=== PATIENT | female | born 1965 | race Caucasian/White ===

== ENCOUNTER 2023-09-06 08:47 | Outpatient (AMB) | payer BC, SELFPAY ==
--- NOTE | 2023-09-06 09:19 | A.OFFPC_ITS ---
Vital Signs 09/06/23 09:31 Height 5 ft 6 in Weight 187 lb 8 oz BMI 30.3 BP 128/80 Blood Pressure Location Lt brachial Position Sitting Respiration 12 Pulse 83 Pulse Source Pulse Oximeter Temp 98.2 F Temp Source Oral Pulse Oximetry (%) 98 Oxygen Delivery Method Room Air Intake Visit Reasons: est care Intake Note: New patient visit. Needs thyroid lab recheck Clinic Assistant Required: No Allergies erythromycin base Allergy (Severe, Verified 09/05/23 13:55) Abdominal Pain codeine Allergy (Unknown, Verified 09/05/23 13:55) Back Pain metronidazole [From Flagyl] Allergy (Unknown, Verified 09/05/23 13:55) Unknown povidone-iodine [From Betadine] Allergy (Unknown, Verified 09/05/23 13:55) Rash sulfamethoxazole [From Bactrim] Allergy (Unknown, Verified 09/05/23 13:55) Rash trimethoprim [From Bactrim] Allergy (Unknown, Verified 09/05/23 13:55) Rash cephalexin [From Keflex] Allergy (Verified 09/05/23 13:55) throat closing shellfish Allergy (Unknown, Uncoded 09/05/23 13:55) skin reaction Medication List - Last Reconciled 09/06/23 by Elina Hong MD albuterol sulfate 90 mcg/actuation 2 puffs inhalation Q6H PRN amitriptyline 25 mg PO BEDTIME fluticasone propionate 110 mcg/actuation inhalation gabapentin 100 mg PO TID levothyroxine 50 mcg PO DAILY montelukast 10 mg PO DAILY zolpidem 10 mg PO BEDTIME PRN Tobacco use date assessed: 09/06/23 Dental Screening Dental Screen Date: 09/06/23 Did you have a dental visit in the last 12 months?: No Did you have a dental problem in the last 6 months where you did not have access to dental care?: No Was dental information given to patient?: Patient has dentist HPI HPI Comments History of Present Illness Details The patient is a 58 year old female with a past medical history of asthma, hyplipidemia, diveriticulitis, migraine, insomnia, COVID x 2 presenting for follow up Asthma: Stable. Slow recovery from COVID May 2020. Recent COVID 06/2023. Breathing at baseline on flovent, albuterol prn CV: Hyperlipidemia. Tried multiple statins-lipitor, simvastatin, pravastatin. All led to increased myalgia. Hypothyroid: Stable on levothyroxine 50mcg daily. Thyroid u/s reassuring 2023. History of diverticulitis s/p colonic resection 2018 without recent issue Fibromyalgia: stopped statin with some relief last year. Feels increased b/l hip pain. Would like to increase gabapentin, elavil Insomnia: Well controlled on ambien Mammo 08/2022 PFSH Family History (Updated 09/06/23 @ 10:14 by Maggie Suarez CMA) Mother Lung cancer Father Stomach cancer Paternal Aunt Breast cancer Brother Autoimmune disorder Social History (Updated 09/06/23 @ 09:34 by Maggie Suarez CMA) Housing: House e-Cigarette/Vaping Use: Never Used Second Hand Smoke Exposure: Yes (past) service: No Current occupational status: employed Current occupational exposures/hazards: No (past) Cognitive needs: No Hearing needs: No Vision needs: No Questionnaire PHQ-9 Over the last 2 weeks, how often have you been bothered by any of the following problems? 1. Little interest or pleasure in doing things: not at all 2. Feeling down, depressed, or hopeless: not at all 3. Trouble falling or staying asleep, or sleeping too much: not at all 4. Feeling tired or having little energy: not at all 5. Poor appetite or overeating: not at all 6. Feeling bad about yourself - or that you are a failure or have let yourself or your family down: not at all 7. Trouble concentrating on things, such as reading the newspaper or watching television: not at all 8. Moving or speaking so slowly that other people could have noticed. Or the opposite - being so fidgety or restless that you have been moving around a lot more than usual: not at all 9. Thoughts that you would be better off or of hurting yourself in some way: not at all Total score: 0 Depression Screening Interpretation: Negative (neg) Depression Screening Done: Yes 44267 - PHQ-9 Billing: Yes Source: Developed by Drs. Javi Whatley, Yaneth Salomon, Speedy Ward and colleagues, with an educational selvin from [employer]. Thrive Questionnaire Date Thrive assessed: 04/25/24 I am a: Patient What is your living situation today?: I have a steady place to live Within the past 12 months, did the food you bought not last and you didn't have the money to get more?: Never true Within the past 12 months, did you worry whether your food would run out before you got money to buy more?: Never true Do you have trouble paying for medicines?: No Do you have trouble getting transportation to medical appointments?: No Do you have trouble paying your heating and electricity bill?: No Do you have trouble taking care of your child, family member or friend?: No Do you have trouble with day-to-day activities such as bathing, preparing meals, shopping, managing finances, etc.?: No Are you currently unemployed and looking for a job?: No Are you interested in more education?: No Please select the resources that you would like help with: None Currently or been in a relationship where the following occur: no concerns reported THRIVE Score: 0 AUDIT C Alcohol Use Questionnaire (AUDIT-C) 1. How often do you have a drink containing alcohol?: Monthly or less 2. How many drinks containing alcohol do you have on a typical day when you are drinking?: 1 or 2 3. How often do you have six or more drinks on one occasion?: Never Total Score: 1 SUMMER-7 AMB Questionnaire SUMMER-7 Date SUMMER - 7 assessed: 09/06/23 Feeling nervous, anxious, or on edge: 0 = Not at all Not being able to stop or control worryin = Not at all Worrying too much about different things: 0 = Not at all Trouble relaxin = Not at all Being so restless that it is hard to sit still: 0 = Not at all Becoming easily annoyed or irritable: 0 = Not at all Feeling afraid as if something awful might happen: 0 = Not at all Total SUMMER-7 score (0-4 normal; 5-9 mild; 10-14 moderate; 15-21 severe): 0 Source: Developed by Drs. Javi Whatley, Yaneth Salomon, Speedy Ward and colleagues, with an educational selvin from [employer]. SUMMER-7 Assessment Billing SUMMER-7 Assessment Tool: SUMMER-7 Assessment 88708 ACT Questionnaire In the past 4 weeks, how much of the time did your asthma keep you from getting as much done at work, school or at home?: Some of the time During the past 4 weeks, how often have you had shortness of breath?: 1-2 times a week (Once in the past 4 weeks, usually in spring time) During the past 4 weeks, how often did your asthma symptoms wake you up at night or earlier than usual in the morning?: Not at all During the past 4 weeks, how often have you had to use your rescue inhaler or nebulizer medication?: Not at all How would you rate your asthma control during the past 4 weeks?: Well controlled ACT Interpretation: Positive Score: 21 Review of Systems Const Details: ROS CONSTITUTIONAL: Denies weight loss, fever and chills. HEENT: Denies changes in vision and hearing. RESPIRATORY: Denies SOB and cough. CV: Denies palpitations and CP GI: Denies abdominal pain, nausea, vomiting and diarrhea. : Denies dysuria and urinary frequency. MSK: see HPI SKIN: Denies rash and pruritus. NEUROLOGICAL: Denies headache PSYCHIATRIC: Denies recent changes in mood. Physical exam (Primary Care) Vital Signs: Last Vital Signs Temp 98.2 F 09/06/23 09:31 Pulse 83 09/06/23 09:31 Resp 12 09/06/23 09:31 BP 128/80 09/06/23 09:31 Pulse Ox 98 09/06/23 09:31 Oxygen Delivery Method Room Air 09/06/23 09:31 PHYSICAL EXAM: GENERAL: Alert and oriented x 3. NAD EYES: EOMI. Anicteric. HENT: Moist mucous membranes. No scleral icterus. No cervical lymphadenopathy. LUNGS: Clear to auscultation bilaterally. CARDIOVASCULAR: Regular rate and rhythm. No murmur. No JVD. ABDOMEN: Soft, non-tender +bs EXTREMITIES: No edema. Non-tender. SKIN: No rashes or lesions. Warm. NEUROLOGIC: No focal neurological deficits. CN II-XII grossly intact PSYCHIATRIC: Cooperative. Appropriate mood and affect BMI result Body Mass Index 30.3 Tobacco/Smoking Status: Tobacco use Status Tobacco use date assessed 09/06/23 09/06/23 09:28 e-Cigarette/Vaping Use Never Used 09/06/23 09:28 PHQ-9: PHQ-9 Score PHQ-9: Total score 0 04/25/24 10:15 Depression Screening Interpretation: Negative (neg) Thrive Assessment: Date of Thrive Assessment Date Thrive assessed 09/06/23 09/06/23 10:15 Currently or been in a relationship where the following occur: no concerns reported Const Other: PHYSICAL EXAM: GENERAL: Alert and oriented x 3. NAD EYES: EOMI. Anicteric. HENT: Moist mucous membranes. No scleral icterus. No cervical lymphadenopathy. LUNGS: Clear to auscultation bilaterally. CARDIOVASCULAR: Regular rate and rhythm. No murmur. No JVD. ABDOMEN: Soft, non-tender +bs EXTREMITIES: No edema. Non-tender. SKIN: No rashes or lesions. Warm. NEUROLOGIC: No focal neurological deficits. CN II-XII grossly intact PSYCHIATRIC: Cooperative. Appropriate mood and affect Assessment and Plan Assessment & Plan (1) Hypertension: Comment: controlled off meds Code(s): I10 - Essential (primary) hypertension Qualifiers: Hypertension type: primary hypertension Qualified Code(s): I10 - Essential (primary) hypertension (2) Hyperlipidemia: Comment: thaddeus sent. Code(s): E78.5 - Hyperlipidemia, unspecified Qualifiers: Hyperlipidemia type: mixed hyperlipidemia Qualified Code(s): E78.2 - Mixed hyperlipidemia (3) Insomnia: Comment: continue zolpidem Code(s): G47.00 - Insomnia, unspecified Qualifiers: Insomnia type: primary Qualified Code(s): F51.01 - Primary insomnia (4) Migraine: Code(s): G43.909 - Migraine, unspecified, not intractable, without status migrainosus Qualifiers: Migraine type: unspecified Status migrainosus presence: without status migrainosus Intractability: not intractable Qualified Code(s): G43.909 - Migraine, unspecified, not intractable, without status migrainosus (5) Asthma: Comment: stable. continue flovent, albuterol Code(s): J45.909 - Unspecified asthma, uncomplicated Qualifiers: Asthma severity: moderate Asthma persistence: persistent Asthma complication type: uncomplicated Qualified Code(s): J45.40 - Moderate persistent asthma, uncomplicated (6) Diverticulitis: Code(s): K57.92 - Diverticulitis of intestine, part unspecified, without perforation or abscess without bleeding (7) HSIL on Pap smear of cervix: Code(s): R87.613 - High grade squamous intraepithelial lesion on cytologic smear of cervix (HGSIL) (8) Statin-induced myositis: Code(s): M60.9 - Myositis, unspecified; T46.6X5A - Adverse effect of antihyperlipidemic and antiarteriosclerotic drugs, initial encounter Orders: Orders TSH reflex Free T4 Today E03.9 - Hypothyroidism, unspecified, E78.5 - Hyperlipidemia, unspecified, G47.00 - Insomnia, unspecified, I10 - Essential (primary) hypertension Lipid Panel Today E78.5 - Hyperlipidemia, unspecified, M60.9 - Myositis, unspecified, T46.6X5A - Adverse effect of antihyperlipidemic and antiarteriosclerotic drugs, initial encounter Medications: New zolpidem 10 mg PO BEDTIME 30 days PRN 30 tabs 0RF insomnia amitriptyline 50 mg PO BEDTIME 90 tabs 3RF inclisiran (Leqvio) 284 mg (1.5 mL) subcut [id number] 3 months 1.5 mL 0RF E78.5 - Hyperlipidemia, unspecified, M60.9 - Myositis, unspecified, T46.6X5A - Adverse effect of antihyperlipidemic and antiarteriosclerotic drugs, initial encounter gabapentin 300 mg PO TID 90 days 270 caps 3RF montelukast 10 mg PO DAILY 90 tabs 3RF Coding Level of Care Code Est Pt Level 4 (90832) Complex EM visit Add On G2211 Diagnoses Primary hypertension I10 Hypertension type: primary hypertension Mixed hyperlipidemia E78.2 Hyperlipidemia type: mixed hyperlipidemia Primary insomnia F51.01 Insomnia type: primary Migraine without status migrainosus, not intractable, unspecified migraine type G43.909 Migraine type: unspecified Status migrainosus presence: without status migrainosus Intractability: not intractable Moderate persistent asthma without complication J45.40 Asthma severity: moderate Asthma persistence: persistent Asthma complication type: uncomplicated Diverticulitis K57.92 HSIL on Pap smear of cervix R87.613 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; T46.6X5A Additional Codes SUMMER-7 Assessment Billing - SUMMER-7 Assessment Tool: SUMMER-7 Assessment 11074 ([id number]) Time Spent (min) 35
[2023-09-06 09:31] VITALS: BP 128/80; PULSE 83; RESP 12; TEMP 36.8; O2SAT 98; BMI 30.3
== END 2023-09-06 10:15 | disposition home or self-care (01) ==
PROVIDERS: PCP Internal Medicine; Visit Provider Internal Medicine
DX: I10 Essential (primary) hypertension (principal); E78.2 Mixed hyperlipidemia; F51.01 Primary insomnia; G43.909 Migraine, unspecified, not intractable, without status migrainosus; J45.40 Moderate persistent asthma, uncomplicated; K57.92 Diverticulitis of intestine, part unspecified, without perforation or abscess without bleeding; R87.613 High grade squamous intraepithelial lesion on cytologic smear of cervix (HGSIL); M60.9 Myositis, unspecified; T46.6X5A Adverse effect of antihyperlipidemic and antiarteriosclerotic drugs, initial encounter
CPT/HCPCS: 99214; G2211

== ENCOUNTER 2023-09-06 10:10 | Outpatient (REF) | payer BC, SELFPAY ==
[2023-09-06 14:16] LABS: Cholesterol 247 mg/dL (<200); HDL Cholesterol 58 mg/dL (>40); LDL Cholesterol Calculated 171 mg/dL (<100); TSH reflex Free T4 2.14 uIU/mL (0.32-4.0); Triglycerides 94 mg/dL (<150)
== END 2023-09-06 10:11 | disposition home or self-care (01) ==
LOC: HO.WFDLDS 10:10
PROVIDERS: Visit Provider Internal Medicine
DX: I10 Essential (primary) hypertension (principal); E78.5 Hyperlipidemia, unspecified; G47.00 Insomnia, unspecified; E03.9 Hypothyroidism, unspecified; M60.9 Myositis, unspecified; T46.6X5A Adverse effect of antihyperlipidemic and antiarteriosclerotic drugs, initial encounter
CPT/HCPCS: 36415; 80061; 84443

== ENCOUNTER 2023-10-04 08:13 | Outpatient (AMB) | payer BC, SELFPAY ==
--- NOTE | 2023-10-04 08:19 | MHC.PC.OV ---
Vital Signs 10/04/23 08:29 Height 5 ft 5.35 in Weight 187 lb 6 oz BMI 30.8 BP 118/84 Blood Pressure Location Lt brachial Position Sitting Pulse 87 Pulse Source Pulse Oximeter Pulse Oximetry (%) 95 Oxygen Delivery Method Room Air Intake Visit Reasons: CPE Intake Note: Physical. Pt had a mammogram and something was spotted on right breast. Recent tick bite 3 weeks ago, head was not fully removed. 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 Accompanied by: Self / Same As Patient Allergies erythromycin base Allergy (Severe, Verified 10/04/23 08:23) Abdominal Pain amoxicillin Allergy (Intermediate, Verified 10/04/23 08:23) Rash codeine Allergy (Unknown, Verified 10/04/23 08:23) Back Pain metronidazole [From Flagyl] Allergy (Unknown, Verified 10/04/23 08:23) Unknown povidone-iodine [From Betadine] Allergy (Unknown, Verified 10/04/23 08:23) Rash sulfamethoxazole [From Bactrim] Allergy (Unknown, Verified 10/04/23 08:23) Rash trimethoprim [From Bactrim] Allergy (Unknown, Verified 09/05/23 13:55) Rash cephalexin [From Keflex] Allergy (Verified 10/04/23 08:23) throat closing shellfish Allergy (Unknown, Uncoded 10/04/23 08:23) skin reaction Tobacco use date assessed: 09/06/23 Dental Screening Dental Screen Date: 09/06/23 HPI HPI Comments History of Present Illness Details The patient is a 58 year old female with a past medical history of asthma, hyplipidemia, diveriticulitis, migraine, insomnia, COVID x 2 presenting for follow up Recent tick bite ~3 weeks ago. Got the tick out but thinks some head left behind. It continues to be painful to her. Seen at urgent care after bite. Prescribed 10 days of doxycycline which she completed. Asthma: Stable. Slow recovery from COVID May 2020. Recent COVID 06/2023. Breathing at baseline on flovent, albuterol prn CV: Hyperlipidemia. Tried multiple statins-lipitor, simvastatin, pravastatin. All led to increased myalgia. Insurance has not covered PCSK9 inhibitors Hypothyroid: Stable on levothyroxine 50mcg daily. Thyroid u/s reassuring 2023. History of diverticulitis s/p colonic resection 2018 without recent issue Fibromyalgia: stopped statin with some relief last year. Continues gabapentin, elavil Insomnia: Well controlled on ambien Mammo 09/2023 PFSH Family History (Updated 09/06/23 @ 10:14 by Maggie Suarez CMA) Mother Lung cancer Father Stomach cancer Paternal Aunt Breast cancer Brother Autoimmune disorder Social History (Updated 09/06/23 @ 09:34 by Mgagie Suarez CMA) Housing: House Patient Tobacco Use Status: Never used Tobacco e-Cigarette/Vaping Use: Never Used Second Hand Smoke Exposure: Yes (past) service: No Current occupational status: employed Current occupational exposures/hazards: No (past) Cognitive needs: No Hearing needs: No Vision needs: No Questionnaire Thrive Questionnaire Date Thrive assessed: 09/06/23 SUMMER-7 AMB Questionnaire SUMMER-7 Date SUMMER - 7 assessed: 09/06/23 Source: Developed by Drs. Jaiv Whatley, Yaneth Salomon, Speedy Ward and colleagues, with an educational selvin from [employer]. Review of Systems Const Details: ROS CONSTITUTIONAL: Denies weight loss, fever and chills. HEENT: Denies changes in vision and hearing. RESPIRATORY: Denies SOB and cough. CV: Denies palpitations and CP GI: Denies abdominal pain, nausea, vomiting and diarrhea. : Denies dysuria and urinary frequency. MSK: Denies new myalgia and joint pain. SKIN: Denies rash and pruritus. NEUROLOGICAL: Denies headache PSYCHIATRIC: Denies recent changes in mood. Physical exam (Primary Care) Vital Signs: Last Vital Signs Pulse 87 10/04/23 08:29 BP 118/84 10/04/23 08:29 Pulse Ox 95 10/04/23 08:29 Oxygen Delivery Method Room Air 10/04/23 08:29 PHYSICAL EXAM: GENERAL: Alert and oriented x 3. NAD EYES: EOMI. Anicteric. HENT: Moist mucous membranes. LUNGS: Clear to auscultation bilaterally. CARDIOVASCULAR: Regular rate and rhythm. No murmur. No JVD. ABDOMEN: Soft, non-tender +bs EXTREMITIES: No edema. Non-tender. SKIN: R-mid/lower back small area blotchy redness with pinpoint area of raised red scab NEUROLOGIC: No focal neurological deficits. CN II-XII grossly intact PSYCHIATRIC: Cooperative. Appropriate mood and affect BMI result Body Mass Index 30.8 Tobacco/Smoking Status: Tobacco use Status Tobacco use date assessed 09/06/23 10/04/23 08:30 Patient Tobacco Use Status Never used Tobacco 10/04/23 08:45 e-Cigarette/Vaping Use Never Used 10/04/23 08:30 Thrive Assessment: Date of Thrive Assessment Date Thrive assessed 09/06/23 10/04/23 08:30 Assessment and Plan Assessment & Plan (1) Physical exam: Code(s): Z00.00 - Encounter for general adult medical examination without abnormal findings (2) Hypertension: Comment: controlled off meds Code(s): I10 - Essential (primary) hypertension Qualifiers: Hypertension type: primary hypertension Qualified Code(s): I10 - Essential (primary) hypertension (3) Hyperlipidemia: Comment: levqio was not filled Code(s): E78.5 - Hyperlipidemia, unspecified Qualifiers: Hyperlipidemia type: mixed hyperlipidemia Qualified Code(s): E78.2 - Mixed hyperlipidemia (4) Migraine: Code(s): G43.909 - Migraine, unspecified, not intractable, without status migrainosus Qualifiers: Intractability: not intractable Migraine type: unspecified Status migrainosus presence: without status migrainosus Qualified Code(s): G43.909 - Migraine, unspecified, not intractable, without status migrainosus (5) Hypothyroid: Code(s): E03.9 - Hypothyroidism, unspecified Qualifiers: Hypothyroidism type: due to Gracie's thyroiditis Qualified Code(s): E03.8 - Other specified hypothyroidism; E06.3 - Autoimmune thyroiditis (6) Tick bite: Code(s): W57.XXXA - Bitten or stung by nonvenomous insect and other nonvenomous arthropods, initial encounter Qualifiers: Encounter type: subsequent encounter Site of tick bite: lower back Qualified Code(s): S30.860D - Insect bite (nonvenomous) of lower back and pelvis, subsequent encounter; W57.XXXD - Bitten or stung by nonvenomous insect and other nonvenomous arthropods, subsequent encounter Orders: Orders Complete Blood Count Auto Diff Today E03.9 - Hypothyroidism, unspecified, E78.2 - Mixed hyperlipidemia, G43.909 - Migraine, unspecified, not intractable, without status migrainosus, I10 - Essential (primary) hypertension, J45.40 - Moderate persistent asthma, uncomplicated Comprehensive Met. Panel Today E03.9 - Hypothyroidism, unspecified, E78.2 - Mixed hyperlipidemia, G43.909 - Migraine, unspecified, not intractable, without status migrainosus, I10 - Essential (primary) hypertension, J45.40 - Moderate persistent asthma, uncomplicated Vitamin B12 and Folate Today E03.9 - Hypothyroidism, unspecified, E78.2 - Mixed hyperlipidemia, G43.909 - Migraine, unspecified, not intractable, without status migrainosus, I10 - Essential (primary) hypertension, J45.40 - Moderate persistent asthma, uncomplicated Lyme IgG/IgM w/reflex to WB 3 Weeks W57.XXXA - Bitten or stung by nonvenomous insect and other nonvenomous arthropods, initial encounter Ehrlichia Anaplasma Ab Panel 3 Weeks W57.XXXA - Bitten or stung by nonvenomous insect and other nonvenomous arthropods, initial encounter Babesia IgG/IgM 3 Weeks W57.XXXA - Bitten or stung by nonvenomous insect and other nonvenomous arthropods, initial encounter Vitamin D 1,25 dihydroxy Today E03.9 - Hypothyroidism, unspecified, E78.2 - Mixed hyperlipidemia, G43.909 - Migraine, unspecified, not intractable, without status migrainosus, I10 - Essential (primary) hypertension, J45.40 - Moderate persistent asthma, uncomplicated IRON PROFILE Today E03.9 - Hypothyroidism, unspecified, E78.2 - Mixed hyperlipidemia, G43.909 - Migraine, unspecified, not intractable, without status migrainosus, I10 - Essential (primary) hypertension, J45.40 - Moderate persistent asthma, uncomplicated Medications: Refilled montelukast 10 mg PO DAILY 90 tabs 3RF zolpidem 10 mg PO BEDTIME PRN 30 tabs 0RF insomnia 30 days Coding Level of Care Code Est Pt Prev Care 40-64y(57564) Diagnoses Physical exam Z00.00 Primary hypertension I10 Hypertension type: primary hypertension Mixed hyperlipidemia E78.2 Hyperlipidemia type: mixed hyperlipidemia Migraine without status migrainosus, not intractable, unspecified migraine type G43.909 Intractability: not intractable Migraine type: unspecified Status migrainosus presence: without status migrainosus 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
[2023-10-04 08:29] VITALS: BP 118/84; PULSE 87; O2SAT 95; BMI 30.8
== END 2023-10-04 09:31 | disposition home or self-care (01) ==
PROVIDERS: PCP Internal Medicine; Visit Provider Internal Medicine
DX: Z00.00 Encounter for general adult medical examination without abnormal findings (principal); I10 Essential (primary) hypertension; E78.2 Mixed hyperlipidemia; G43.909 Migraine, unspecified, not intractable, without status migrainosus; E03.8 Other specified hypothyroidism; E06.3 Autoimmune thyroiditis; S30.860D Insect bite (nonvenomous) of lower back and pelvis, subsequent encounter; W57.XXXD Bitten or stung by nonvenomous insect and other nonvenomous arthropods, subsequent encounter
CPT/HCPCS: 99396

== ENCOUNTER 2023-10-04 09:41 | Outpatient (REF) | payer BC, SELFPAY ==
[2023-10-04 11:48] LABS: MANUAL DIFF FLAG NO
[2023-10-04 11:54] LABS: Basophils Percent Auto 0.5 % (0-2); Eosinophils Absolute Auto 0.2 X10*3/uL (0.0-0.4); Eosinophils Percent Auto 2.8 % (0-4); Hematocrit 40.1 % (37.0-47.0); Hemoglobin 12.8 g/dl (12.0-16.0); Imm Gran Abs Auto 0.04 X10*3/uL (0.00-0.03); Imm Gran Pct Auto 0.7 % (0.0-0.4); Lymphocytes Absolute Auto 1.9 X10*3/uL (1.2-4.9); Mean Corpuscular HGB Conc 31.9 g/dl (31.0-35.0); Mean Corpuscular Hemoglobin 30.8 pg (27.0-33.0); Mean Corpuscular Volume 96.6 fL (80.0-98.0); Mean Platelet Volume 9.7 fL (9.4-12.3); Monocytes Absolute Auto 0.4 X10*3/uL (0.1-1.2); Monocytes Percent Auto 7.1 % (2-11); Neutrophils Absolute Auto 3.5 x10*3/uL (2.0-8.3); Neutrophils Percent Auto 57.9 % (45-73); Platelet Count 243 X10*3/uL (160-400); Red Blood Count 4.15 X10*6/uL (4.20-5.50); White Blood Count 6.1 X10*3/uL (4.8-10.8)
[2023-10-04 12:04] LABS: Alanine Aminotransferase 24 U/L (0-31); Albumin Level 4.3 g/dL (3.5-5.0); Alkaline Phosphatase 107 U/L (39-117); Anion Gap 12 (12-20); Aspartate Amino Transferase 20 U/L (5-31); Bilirubin Total 0.4 mg/dL (0.0-1.0); Blood Urea Nitrogen 15 mg/dL (9-16); Calcium 9.6 mg/dL (8.4-10.2); Carbon Dioxide 25 mmol/L (22-29); Chloride 107 mmol/L (96-108); Estimated Glomerular Filt Rate > 60; Glucose Random 88 mg/dL (60-115); Iron 79 mcg/dL (30-160); Percent Iron Saturation 32 % (15-50); Potassium 4.4 mmol/L (3.3-5.1); Sodium 140 mmol/L (135-145); Total Iron Binding Capacity 245 mcg/dL (228-428); Total Protein 7.3 g/dL (6.5-8.0); Unsaturated Iron Binding 166 ug/dL
[2023-10-04 13:49] LABS: Vitamin B12 719 pg/mL (200-900)
[2023-10-08 01:18] LABS: VITAMIN D (1,25 OH) D3 47 pg/mL; Vit D (1,25-Dihydroxy) Total 47 pg/mL (18-72); Vitamin D (1,25 OH) D2 <8 pg/mL
== END 2023-10-04 09:42 | disposition home or self-care (01) ==
LOC: HO.WFDLDS 09:41
PROVIDERS: Visit Provider Internal Medicine
DX: J45.40 Moderate persistent asthma, uncomplicated (principal); E03.9 Hypothyroidism, unspecified; G43.909 Migraine, unspecified, not intractable, without status migrainosus; E78.2 Mixed hyperlipidemia; I10 Essential (primary) hypertension
CPT/HCPCS: 36415; 80053; 82607; 82652; 82746; 83540; 85025

== ENCOUNTER 2023-11-02 10:11 | Outpatient (AMB) | payer BC, SELFPAY ==
--- NOTE | 2023-11-02 10:41 | MHC.PC.OV ---
Vital Signs 11/02/23 10:45 Height 5 ft 3.35 in Weight 189 lb 8 oz BMI 33.2 BP 112/76 Blood Pressure Location Lt brachial Position Sitting Respiration 14 Pulse 85 Pulse Source Pulse Oximeter Temp 98.3 F Temp Source Oral Pulse Oximetry (%) 98 Oxygen Delivery Method Room Air Intake Visit Reasons: est/ asthma needs steroids Allergies erythromycin base Allergy (Severe, Verified 11/02/23 10:43) Abdominal Pain amoxicillin Allergy (Intermediate, Verified 11/02/23 10:43) Rash codeine Allergy (Unknown, Verified 11/02/23 10:43) Back Pain metronidazole [From Flagyl] Allergy (Unknown, Verified 11/02/23 10:43) Unknown povidone-iodine [From Betadine] Allergy (Unknown, Verified 11/02/23 10:43) Rash sulfamethoxazole [From Bactrim] Allergy (Unknown, Verified 11/02/23 10:43) Rash trimethoprim [From Bactrim] Allergy (Unknown, Verified 11/02/23 10:43) Rash cephalexin [From Keflex] Allergy (Verified 11/02/23 10:43) throat closing shellfish Allergy (Unknown, Uncoded 11/02/23 10:43) skin reaction Tobacco use date assessed: 09/06/23 Dental Screening Dental Screen Date: 09/06/23 HPI HPI Comments History of Present Illness Details The patient is a 58 year old female with a past medical history of asthma, hyplipidemia, diveriticulitis, migraine, insomnia, COVID x 2 presenting for asthma flare Increased shortness in breath, wheezing for the past 4 days with record heat and humidity. Using prn albuteron inhaler and nebs. On flovent Asthma: as above. Slow recovery from COVID May 2020. Recent COVID 06/2023. On flovent, albuterol prn CV: Hyperlipidemia. Tried multiple statins-lipitor, simvastatin, pravastatin. All led to increased myalgia. Insurance has not covered PCSK9 inhibitors Hypothyroid: Stable on levothyroxine 50mcg daily. Thyroid u/s reassuring 2023. History of diverticulitis s/p colonic resection 2018 without recent issue Fibromyalgia: stopped statin with some relief last year. Continues gabapentin, elavil Insomnia: Well controlled on ambien Mammo 09/2023 ROS see HPI PHYSICAL EXAM: GENERAL: Alert and oriented x 3. NAD EYES: EOMI. Anicteric. HENT: Moist mucous membranes. No scleral icterus. No cervical lymphadenopathy. LUNGS: Decreasing airflow, scant wheezing CARDIOVASCULAR: Regular rate and rhythm. No murmur. No JVD. ABDOMEN: Soft, non-tender +bs EXTREMITIES: No edema. Non-tender. SKIN: No rashes or lesions. Warm. NEUROLOGIC: No focal neurological deficits. CN II-XII grossly intact PSYCHIATRIC: Cooperative. Appropriate mood and affect PFSH Family History (Updated 09/06/23 @ 10:14 by Maggie Suarez CMA) Mother Lung cancer Father Stomach cancer Paternal Aunt Breast cancer Brother Autoimmune disorder Social History (Updated 09/06/23 @ 09:34 by Maggie Suarez CMA) Housing: House Patient Tobacco Use Status: Never used Tobacco e-Cigarette/Vaping Use: Never Used Second Hand Smoke Exposure: Yes (past) service: No Current occupational status: employed Current occupational exposures/hazards: No (past) Cognitive needs: No Hearing needs: No Vision needs: No Questionnaire Thrive Questionnaire Date Thrive assessed: 09/06/23 SUMMER-7 AMB Questionnaire SUMMER-7 Date SUMMER - 7 assessed: 09/06/23 Source: Developed by Drs. Javi Whatley, Yaneth Salomon, Speedy Ward and colleagues, with an educational selvin from [employer]. ACT Questionnaire In the past 4 weeks, how much of the time did your asthma keep you from getting as much done at work, school or at home?: A little of the time During the past 4 weeks, how often have you had shortness of breath?: More than once a day During the past 4 weeks, how often did your asthma symptoms wake you up at night or earlier than usual in the morning?: 4 or more nights a week During the past 4 weeks, how often have you had to use your rescue inhaler or nebulizer medication?: More than 3 times per day How would you rate your asthma control during the past 4 weeks?: Not controlled at all ACT Interpretation: Positive Score: 8 Physical exam (Primary Care) Vital Signs: Last Vital Signs Temp 98.3 F 11/02/23 10:45 Pulse 85 11/02/23 10:45 Resp 14 11/02/23 10:45 BP 112/76 11/02/23 10:45 Pulse Ox 98 11/02/23 10:45 Oxygen Delivery Method Room Air 11/02/23 10:45 BMI result Body Mass Index 33.2 Tobacco/Smoking Status: Tobacco use Status Tobacco use date assessed 09/06/23 11/02/23 10:42 Patient Tobacco Use Status Never used Tobacco 11/02/23 10:42 e-Cigarette/Vaping Use Never Used 11/02/23 10:42 Thrive Assessment: Date of Thrive Assessment Date Thrive assessed 09/06/23 11/02/23 10:42 Assessment and Plan Assessment & Plan (1) Asthma: Comment: stable. continue flovent, albuterol Code(s): J45.909 - Unspecified asthma, uncomplicated Qualifiers: Asthma severity: moderate Asthma persistence: persistent Asthma complication type: uncomplicated Qualified Code(s): J45.40 - Moderate persistent asthma, uncomplicated (2) Asthma exacerbation: Code(s): J45.901 - Unspecified asthma with (acute) exacerbation Medications: New prednisone 60mg oral once daily for 3 days then 40mg oral once daily for 3 days then 20mg oral once daily for 3 days 18 tabs 0RF Coding Level of Care Code Est Pt Level 4 (44121) Diagnoses Moderate persistent asthma without complication J45.40 Asthma severity: moderate Asthma persistence: persistent Asthma complication type: uncomplicated Asthma exacerbation J45.901
[2023-11-02 10:45] VITALS: BP 112/76; PULSE 85; RESP 14; TEMP 36.8; O2SAT 98; BMI 33.2
== END 2023-11-02 11:11 | disposition home or self-care (01) ==
PROVIDERS: PCP Internal Medicine; Visit Provider Internal Medicine
DX: J45.40 Moderate persistent asthma, uncomplicated (principal); J45.901 Unspecified asthma with (acute) exacerbation
CPT/HCPCS: 99214

== ENCOUNTER 2023-11-02 11:15 | Outpatient (REF) | payer BC, SELFPAY ==
[2023-11-05 18:37] LABS: Lyme Abs Screen <0.90 index
[2023-11-10 02:04] LABS: Babesia IgG <1:64 titer (<1:64); Babesia IgM <1:20 titer (<1:20)
[2023-11-12 15:54] LABS: A. Phagocytophilum Ab IgG <1:64 (<1:64); A. Phagocytophilum Ab IgM <1:20 (<1:20); E. Chaffeensis Ab IgG <1:64 (<1:64); E. Chaffeensis Ab IgM <1:20 (<1:20)
== END 2023-11-02 11:16 | disposition home or self-care (01) ==
LOC: HO.WFDLDS 11:15
PROVIDERS: Visit Provider Internal Medicine
DX: T14.8XXA Other injury of unspecified body region, initial encounter (principal); W57.XXXA Bitten or stung by nonvenomous insect and other nonvenomous arthropods, initial encounter
CPT/HCPCS: 36415; 86617; 86618; 86666; 86753

== ENCOUNTER 2023-11-06 11:07 | Outpatient (AMB) | payer BC, SELFPAY ==
--- NOTE | 2023-11-06 11:31 | A.OFFPC_ITS ---
Vital Signs 11/06/23 11:33 Height 5 ft 3.35 in Weight 188 lb 8 oz BMI 33.0 BP 110/78 Blood Pressure Location Lt brachial Position Sitting Pulse 88 Pulse Source Pulse Oximeter Pulse Oximetry (%) 95 Oxygen Delivery Method Room Air Intake Visit Reasons: Follow up for mammogram results a/second opinion Intake Note: Mammogram results and second opinion. Asthma sxs Allergies erythromycin base Allergy (Severe, Verified 11/06/23 11:32) Abdominal Pain amoxicillin Allergy (Intermediate, Verified 11/06/23 11:32) Rash codeine Allergy (Unknown, Verified 11/06/23 11:32) Back Pain metronidazole [From Flagyl] Allergy (Unknown, Verified 11/06/23 11:32) Unknown povidone-iodine [From Betadine] Allergy (Unknown, Verified 11/06/23 11:32) Rash sulfamethoxazole [From Bactrim] Allergy (Unknown, Verified 11/06/23 11:32) Rash trimethoprim [From Bactrim] Allergy (Unknown, Verified 11/06/23 11:32) Rash cephalexin [From Keflex] Allergy (Verified 11/06/23 11:32) throat closing shellfish Allergy (Unknown, Uncoded 11/06/23 11:32) skin reaction Tobacco use date assessed: 09/06/23 Dental Screening Dental Screen Date: 09/06/23 HPI HPI Comments History of Present Illness Details The patient is a 58 year old female with a past medical history of asthma, hyplipidemia, diveriticulitis, migraine, insomnia, COVID x 2 presenting for asthma flare Patient is concerned for abnormal mammogram and u/s. This shows an indeterminate but not entirely suspicious appearing right breast mass. These were performed in response for abnormal u/s six months ago prior to which she reports normal mammograms. Gets these done at [facility]. She has been having tender axillary lymph nodes of the left breast. She has a family history of breast cancer. The recommendation was to repeat testing six months from now which she is not comfortable with Increased shortness in breath, wheezing-not resolved with recent prednisone therapy. Would like cxr Asthma: as above. Slow recovery from COVID May 2020. Recent COVID 06/2023. On flovent, albuterol prn CV: Hyperlipidemia. Tried multiple statins-lipitor, simvastatin, pravastatin. All led to increased myalgia. Insurance has not covered PCSK9 inhibitors Hypothyroid: Stable on levothyroxine 50mcg daily. Thyroid u/s reassuring 2023. History of diverticulitis s/p colonic resection 2018 without recent issue Fibromyalgia: stopped statin with some relief last year. Continues gabapentin, elavil Insomnia: Well controlled on ambien Mammo 09/2023 ROS see HPI PHYSICAL EXAM: GENERAL: Alert and oriented x 3. NAD EYES: EOMI. Anicteric. HENT: Moist mucous membranes. No scleral icterus. No cervical lymphadenopathy. LUNGS: Decreasing airflow, scant wheezing CARDIOVASCULAR: Regular rate and rhythm. No murmur. No JVD. ABDOMEN: Soft, non-tender +bs EXTREMITIES: No edema. Non-tender. SKIN: Tender axilla no large LN appreciated NEUROLOGIC: No focal neurological deficits. CN II-XII grossly intact PSYCHIATRIC: Cooperative. Appropriate mood and affect PFSH Family History (Updated 09/06/23 @ 10:14 by Maggie Suarez CMA) Mother Lung cancer Father Stomach cancer Paternal Aunt Breast cancer Brother Autoimmune disorder Social History (Updated 09/06/23 @ 09:34 by Maggie Suarez CMA) Housing: House Patient Tobacco Use Status: Never used Tobacco e-Cigarette/Vaping Use: Never Used Second Hand Smoke Exposure: Yes (past) service: No Current occupational status: employed Current occupational exposures/hazards: No (past) Cognitive needs: No Hearing needs: No Vision needs: No Questionnaire Thrive Questionnaire Date Thrive assessed: 09/06/23 SUMMER-7 AMB Questionnaire SUMMER-7 Date SUMMER - 7 assessed: 09/06/23 Source: Developed by Drs. Javi Whatley, Yaneth Salomon, Speedy Ward and colleagues, with an educational selvin from [employer]. ACT Questionnaire In the past 4 weeks, how much of the time did your asthma keep you from getting as much done at work, school or at home?: All of the time During the past 4 weeks, how often have you had shortness of breath?: More than once a day During the past 4 weeks, how often did your asthma symptoms wake you up at night or earlier than usual in the morning?: Not at all During the past 4 weeks, how often have you had to use your rescue inhaler or nebulizer medication?: More than 3 times per day How would you rate your asthma control during the past 4 weeks?: Not controlled at all ACT Interpretation: Positive Score: 9 Physical exam (Primary Care) Vital Signs: Last Vital Signs Pulse 88 11/06/23 11:33 BP 110/78 11/06/23 11:33 Pulse Ox 95 11/06/23 11:33 Oxygen Delivery Method Room Air 11/06/23 11:33 BMI result Body Mass Index 33.0 Tobacco/Smoking Status: Tobacco use Status Tobacco use date assessed 09/06/23 11/06/23 11:36 Patient Tobacco Use Status Never used Tobacco 11/06/23 11:36 e-Cigarette/Vaping Use Never Used 11/06/23 11:36 Thrive Assessment: Date of Thrive Assessment Date Thrive assessed 09/06/23 11/06/23 11:36 Assessment and Plan Assessment & Plan (1) Mass of right breast: Code(s): N63.10 - Unspecified lump in the right breast, unspecified quadrant Qualifiers: Breast mass location: unspecified quadrant Qualified Code(s): N63.10 - Unspecified lump in the right breast, unspecified quadrant Plan: MRI bilateral given right breast findings and left breast discomfort. Referral to general surgery for evaluation (2) Axillary lymphadenopathy: Code(s): R59.0 - Localized enlarged lymph nodes (3) At high risk for breast cancer: Code(s): Z91.89 - Other specified personal risk factors, not elsewhere classified (4) Shortness of breath: Code(s): R06.02 - Shortness of breath (5) Axillary lymphadenopathy: Code(s): R59.0 - Localized enlarged lymph nodes (6) At high risk for breast cancer: Code(s): Z91.89 - Other specified personal risk factors, not elsewhere classified Orders: Orders MR breast BI wo/w con 11/06/23 N63.10 - Unspecified lump in the right breast, unspecified quadrant, R59.0 - Localized enlarged lymph nodes, Z91.89 - Other specified personal risk factors, not elsewhere classified XR chest 2V 11/06/23 R06.02 - Shortness of breath Referrals General Surgery Referral N63.10 - Unspecified lump in the right breast, unspecified quadrant, R59.0 - Localized enlarged lymph nodes, Z91.89 - Other specified personal risk factors, not elsewhere classified Coding Level of Care Code Tele Est Pt Level 4 (05837) Diagnoses Mass of right breast, unspecified quadrant N63.10 Breast mass location: unspecified quadrant Axillary lymphadenopathy R59.0 At high risk for breast cancer Z91.89 Shortness of breath R06.02
[2023-11-06 11:33] VITALS: BP 110/78; PULSE 88; O2SAT 95; BMI 33.0
== END 2023-11-06 12:18 | disposition home or self-care (01) ==
PROVIDERS: PCP Internal Medicine; Visit Provider Internal Medicine
DX: R59.0 Localized enlarged lymph nodes (principal); Z91.89 Other specified personal risk factors, not elsewhere classified; R06.02 Shortness of breath; N63.10 Unspecified lump in the right breast, unspecified quadrant
CPT/HCPCS: 99214

== ENCOUNTER 2023-11-06 12:55 | Outpatient (REF) | payer BC, SELFPAY ==
--- NOTE | ~2023-11-06 | XR_ITS ---
EXAMINATION: XR CHEST CLINICAL INFORMATION: Shortness of breath for one and a half weeks. COMPARISON: None available. TECHNIQUE: 2 views of the chest were obtained. FINDINGS: There is no gross pneumothorax. Heart size is normal. Lung volumes are low. Dextroscoliosis of the thoracic spine with minimal degenerative changes. Surgical clips in the right upper quadrant. Mild bibasilar opacities likely represent atelectasis, however, an infectious/inflammatory process should also be considered in the appropriate clinical setting. XR/XR chest 2V IMPRESSION: Mild bibasilar opacities likely represent atelectasis, however, an infectious/inflammatory process should also be considered in the appropriate clinical setting.
== END 2023-11-06 12:56 | disposition home or self-care (01) ==
LOC: HO.XRAY 12:55
PROVIDERS: PCP Internal Medicine; Visit Provider Internal Medicine
DX: R06.02 Shortness of breath (principal)
CPT/HCPCS: 71046

== ENCOUNTER 2023-12-17 10:10 | Outpatient (AMB) | payer BC, SELFPAY ==
--- NOTE | 2023-12-17 10:15 | A.OFFPC_ITS ---
Vital Signs 12/17/23 10:19 Height 5 ft 3 in Weight 188 lb BMI 33.3 BP 112/68 Blood Pressure Location Lt brachial Position Sitting Pulse 87 Pulse Source Pulse Oximeter Pulse Oximetry (%) 99 Oxygen Delivery Method Room Air Intake Visit Reasons: 3 month F/U Intake Note: Patient reports needing a new epipen and a new RX for Orphenadrine. Patient is concerned for her thyroid- she states it feels off [employer] Con[employer] Required: No Accompanied by: Self / Same As Patient Allergies erythromycin base Allergy (Severe, Verified 12/17/23 10:25) Abdominal Pain amoxicillin Allergy (Intermediate, Verified 12/17/23 10:25) Rash codeine Allergy (Unknown, Verified 12/17/23 10:25) Back Pain metronidazole [From Flagyl] Allergy (Unknown, Verified 12/17/23 10:25) Unknown povidone-iodine [From Betadine] Allergy (Unknown, Verified 12/17/23 10:25) Rash sulfamethoxazole [From Bactrim] Allergy (Unknown, Verified 12/17/23 10:25) Rash trimethoprim [From Bactrim] Allergy (Unknown, Verified 12/17/23 10:25) Rash cephalexin [From Keflex] Allergy (Verified 12/17/23 10:25) throat closing shellfish Allergy (Unknown, Uncoded 12/17/23 10:25) skin reaction Tobacco use date assessed: 09/06/23 Dental Screening Dental Screen Date: 09/06/23 HPI HPI Comments History of Present Illness Details The patient is a 58 year old female with a past medical history of asthma, hyplipidemia, diveriticulitis, migraine, insomnia, COVID x 2 presenting for follow up Patient is concerned for abnormal mammogram and u/s. She is still awaiting MRI and surgery consult is awaiting on MRI. This shows an indeterminate but not entirely suspicious appearing right breast mass. These were performed in resp onse for abnormal u/s six months ago prior to which she reports normal mammograms. Gets these done at [facility]. She has been having tender axillary lymph nodes of the left breast. She has a family history of breast cancer. The original recommendation was for repeat testing in six months Asthma: Improved to baseline. Slow recovery from COVID May 2020. Recent COVID 06/2023. On flovent, albuterol prn CV: Hyperlipidemia. Tried multiple statins-lipitor, simvastatin, pravastatin. All led to increased myalgia. Insurance has not covered PCSK9 inhibitors Hypothyroid: Stable on levothyroxine 50mcg daily. Thyroid u/s reassuring 2023. History of diverticulitis s/p colonic resection 2018 without recent issue Fibromyalgia: stopped statin with some relief last year. Continues gabapentin, elavil Insomnia: Well controlled on ambien Mammo 09/2023 ROS see HPI PHYSICAL EXAM: GENERAL: Alert and oriented x 3. NAD EYES: EOMI. Anicteric. HENT: Moist mucous membranes. No scleral icterus. No cervical lymphadenopathy. LUNGS: Decreasing airflow, scant wheezing CARDIOVASCULAR: Regular rate and rhythm. No murmur. No JVD. ABDOMEN: Soft, non-tender +bs EXTREMITIES: No edema. Non-tender. SKIN: Tender axilla no large LN appreciated NEUROLOGIC: No focal neurological deficits. CN II-XII grossly intact PSYCHIATRIC: Cooperative. Appropriate mood and affect PFSH Family History (Updated 09/06/23 @ 10:14 by Maggie Suarez CMA) Mother Lung cancer Father Stomach cancer Paternal Aunt Breast cancer Brother Autoimmune disorder Social History (Updated 09/06/23 @ 09:34 by Maggie Suarez CMA) Housing: House Patient Tobacco Use Status: Never used Tobacco e-Cigarette/Vaping Use: Never Used Second Hand Smoke Exposure: Yes (past) service: No Current occupational status: employed Current occupational exposures/hazards: No (past) Cognitive needs: No Hearing needs: No Vision needs: No Questionnaire Thrive Questionnaire Date Thrive assessed: 09/06/23 SUMMER-7 AMB Questionnaire SUMMER-7 Date SUMMER - 7 assessed: 09/06/23 Source: Developed by Drs. Javi Whatley, Yaneth Salomon, Speedy Ward and colleagues, with an educational selvin from [employer]. Physical exam (Primary Care) Vital Signs: Last Vital Signs Pulse 87 12/17/23 10:19 BP 112/68 12/17/23 10:19 Pulse Ox 99 12/17/23 10:19 Oxygen Delivery Method Room Air 12/17/23 10:19 BMI result Body Mass Index 33.3 Tobacco/Smoking Status: Tobacco use Status Tobacco use date assessed 09/06/23 12/17/23 10:16 Patient Tobacco Use Status Never used Tobacco 12/17/23 10:16 e-Cigarette/Vaping Use Never Used 12/17/23 10:16 Thrive Assessment: Date of Thrive Assessment Date Thrive assessed 09/06/23 12/17/23 10:16 Assessment and Plan Assessment & Plan (1) Hypothyroid: Code(s): E03.9 - Hypothyroidism, unspecified Qualifiers: 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 continue flovent, albuterol Code(s): J45.909 - Unspecified asthma, uncomplicated Qualifiers: Asthma complication type: uncomplicated Asthma persistence: persistent Asthma severity: moderate Qualified Code(s): J45.40 - Moderate persistent asthma, uncomplicated (3) Hyperlipidemia: Comment: levqio was not filled Code(s): E78.5 - Hyperlipidemia, unspecified Qualifiers: Hyperlipidemia type: mixed hyperlipidemia Qualified Code(s): E78.2 - Mixed hyperlipidemia (4) Hypertension: Comment: controlled off meds Code(s): I10 - Essential (primary) hypertension Qualifiers: Hypertension type: primary hypertension Qualified Code(s): I10 - Essential (primary) hypertension Orders: Orders TSH reflex Free T4 12/17/23 E04.9 - Nontoxic goiter, unspecified Lipid Panel 12/17/23 E78.2 - Mixed hyperlipidemia Thyroid Peroxidase Antibodies 12/17/23 E04.9 - Nontoxic goiter, unspecified Medications: New epinephrine (EpiPen 2-Luis) 0.3 mg (0.3 mL) IM Q4H PRN 2 ea 0RF anaphylaxis T78.2XXA - Anaphylactic shock, unspecified, initial encounter orphenadrine citrate ER 100 mg PO BID 180 tabs 3RF 90 days Coding Level of Care Code Est Pt Level 4 (14827) Diagnoses 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
[2023-12-17 10:19] VITALS: BP 112/68; PULSE 87; O2SAT 99; BMI 33.3
== END 2023-12-17 11:18 | disposition home or self-care (01) ==
PROVIDERS: PCP Internal Medicine; Visit Provider Internal Medicine
DX: E03.8 Other specified hypothyroidism (principal); E06.3 Autoimmune thyroiditis; J45.40 Moderate persistent asthma, uncomplicated; E78.2 Mixed hyperlipidemia; I10 Essential (primary) hypertension
CPT/HCPCS: 99214

== ENCOUNTER 2023-12-17 11:00 | Outpatient (REF) | payer BC, SELFPAY ==
[2023-12-17 14:36] LABS: Cholesterol 237 mg/dL (<200); HDL Cholesterol 54 mg/dL (>40); LDL Cholesterol Calculated 162 mg/dL (<100); Triglycerides 107 mg/dL (<150)
[2023-12-17 14:52] LABS: TSH reflex Free T4 1.36 uIU/mL (0.32-4.0)
[2023-12-18 09:23] LABS: Thyroid Peroxidase Antibodies 1 IU/mL (<9)
== END 2023-12-17 11:01 | disposition home or self-care (01) ==
LOC: HO.WFDLDS 11:00
PROVIDERS: Visit Provider Internal Medicine
DX: E04.9 Nontoxic goiter, unspecified (principal); E78.2 Mixed hyperlipidemia
CPT/HCPCS: 36415; 80061; 84443; 86376

== ENCOUNTER 2024-01-18 10:05 | Outpatient (AMB) | payer BC, SELFPAY ==
--- NOTE | 2024-01-18 10:06 | MHC.PC.OV ---
Vital Signs 01/18/24 10:09 Height 5 ft 3 in Weight 192 lb BMI 34.0 BP 118/76 Blood Pressure Location Rt brachial Position Sitting Respiration 12 Pulse 106 H Pulse Source Pulse Oximeter Pulse Oximetry (%) 99 Oxygen Delivery Method Room Air Intake Visit Reasons: er follow up/chest pains/leg swelling Intake Note: Patient reports she was seen at [facility] emergency room after being on an 8 hour flight due to bilateral leg swelling with no pain. Patient states her legs did not hurt they were just puffy. Patient is also following up on cholesterol medication and reports she cannot take pravastatin due to her fibromylgia becoming worse when pravastatin is taken. 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 Accompanied by: Self / Same As Patient Allergies erythromycin base Allergy (Severe, Verified 01/18/24 10:15) Abdominal Pain amoxicillin Allergy (Intermediate, Verified 01/18/24 10:15) Rash codeine Allergy (Unknown, Verified 01/18/24 10:15) Back Pain metronidazole [From Flagyl] Allergy (Unknown, Verified 01/18/24 10:15) Unknown povidone-iodine [From Betadine] Allergy (Unknown, Verified 01/18/24 10:15) Rash sulfamethoxazole [From Bactrim] Allergy (Unknown, Verified 01/18/24 10:15) Rash trimethoprim [From Bactrim] Allergy (Unknown, Verified 01/18/24 10:15) Rash cephalexin [From Keflex] Allergy (Verified 01/18/24 10:15) throat closing shellfish Allergy (Unknown, Uncoded 01/18/24 10:15) skin reaction Tobacco use date assessed: 09/06/23 Dental Screening Dental Screen Date: 09/06/23 HPI HPI Comments History of Present Illness Details The patient is a 58 year old female with a past medical history of asthma, hyplipidemia, diveriticulitis, migraine, insomnia, COVID x 2 presenting for follow up She was evaluated in [facility] ER on 01/07/24. Presented with lower extremity swelling, chest pain and shortness of breath. Had flown home from [place] 2 days prior. Patient noted to have b/l non pitting edema. Bilateral LE u/s negative for DVT. ACS work up negative. CXR, bnp normal. Her EKG did show new TWI in anterior leads changed from earlier this summer. She has been experiencing more externional dyspnea and intermittent chest pressure. She no longer has the leg swelling and shortness of breath which prompted her ER visit Heme/Onc: abnormal mammogram and u/s. MRI without evidence of malignancy. Surgery consult was waiting on MRI. This shows an indeterminate but not entirely suspicious appearing right breast mass. These were performed in response for abnormal u/s six months ago prior to which she reports normal mammograms. Gets these done at [facility]. She has been having tender axillary lymph nodes of the left breast. She has a family history of breast cancer. The original recommendation was for repeat testing in six months Asthma: Improved to baseline. Slow recovery from COVID May 2020. Recent COVID 06/2023. On flovent, albuterol prn CV: Hyperlipidemia. Tried multiple statins-lipitor, simvastatin, pravastatin. All led to increased myalgia. Recently tried pravastatin again with onset of significant muscle pain. Will send another statin today Insurance has not covered PCSK9 inhibitors Hypothyroid: Stable on levothyroxine 50mcg daily. Thyroid u/s reassuring 2023. History of diverticulitis s/p colonic resection 2018 without recent issue Fibromyalgia: stopped statin with some relief last year. Continues gabapentin, elavil Insomnia: Well controlled on ambien Mammo 09/2023 ROS see HPI PHYSICAL EXAM: GENERAL: Alert and oriented x 3. NAD EYES: EOMI. Anicteric. HENT: Moist mucous membranes. No scleral icterus. No cervical lymphadenopathy. LUNGS: Decreasing airflow, scant wheezing CARDIOVASCULAR: Regular rate and rhythm. No murmur. No JVD. ABDOMEN: Soft, non-tender +bs EXTREMITIES: No edema. Non-tender. SKIN: Tender axilla no large LN appreciated NEUROLOGIC: No focal neurological deficits. CN II-XII grossly intact PSYCHIATRIC: Cooperative. Appropriate mood and affect [facility] Family History Mother Lung cancer Father Stomach cancer Paternal Aunt Breast cancer Brother Autoimmune disorder Social History Housing: House Patient Tobacco Use Status: Never used Tobacco e-Cigarette/Vaping Use: Never Used Second Hand Smoke Exposure: Yes (past) service: No Current occupational status: employed Current occupational exposures/hazards: No (past) Cognitive needs: No Hearing needs: No Vision needs: No Questionnaire PHQ-9 Over the last 2 weeks, how often have you been bothered by any of the following problems? 1. Little interest or pleasure in doing things: not at all 2. Feeling down, depressed, or hopeless: not at all 3. Trouble falling or staying asleep, or sleeping too much: not at all 4. Feeling tired or having little energy: not at all 5. Poor appetite or overeating: not at all 6. Feeling bad about yourself - or that you are a failure or have let yourself or your family down: not at all 7. Trouble concentrating on things, such as reading the newspaper or watching television: not at all 8. Moving or speaking so slowly that other people could have noticed. Or the opposite - being so fidgety or restless that you have been moving around a lot more than usual: not at all 9. Thoughts that you would be better off or of hurting yourself in some way: not at all Total score: 0 Depression Screening Interpretation: Negative Depression Screening Done: Yes 35507 - PHQ-9 Billing: Yes Source: Developed by Drs. Javi Whatley, Yaneth Salomon, Speedy Ward and colleagues, with an educational selvin from [employer]. Thrive Questionnaire Date Thrive assessed: 01/18/24 I am a: Patient What is your living situation today?: I have a steady place to live Within the past 12 months, did the food you bought not last and you didn't have the money to get more?: Never true Within the past 12 months, did you worry whether your food would run out before you got money to buy more?: Never true Do you have trouble paying for medicines?: No Do you have trouble getting transportation to medical appointments?: No Do you have trouble paying your heating and electricity bill?: No Do you have trouble taking care of your child, family member or friend?: No Do you have trouble with day-to-day activities such as bathing, preparing meals, shopping, managing finances, etc.?: No Are you currently unemployed and looking for a job?: No Are you interested in more education?: Yes Please select the resources that you would like help with: None Currently or been in a relationship where the following occur: No concerns reported THRIVE Score: 0 AUDIT C Alcohol Use Questionnaire (AUDIT-C) 1. How often do you have a drink containing alcohol?: Monthly or less 2. How many drinks containing alcohol do you have on a typical day when you are drinking?: 1 or 2 3. How often do you have six or more drinks on one occasion?: Never Total Score: 1 SUMMER-7 AMB Questionnaire SUMMER-7 Date SUMMER - 7 assessed: 01/18/24 Feeling nervous, anxious, or on edge: 0 = Not at all Not being able to stop or control worryin = Not at all Worrying too much about different things: 0 = Not at all Trouble relaxin = Not at all Being so restless that it is hard to sit still: 0 = Not at all Becoming easily annoyed or irritable: 0 = Not at all Feeling afraid as if something awful might happen: 0 = Not at all Total SUMMER-7 score (0-4 normal; 5-9 mild; 10-14 moderate; 15-21 severe): 0 Source: Developed by Drs. Javi Whatley, Yaneth Salomon, Speedy Ward and colleagues, with an educational selvin from [employer]. SUMMER-7 Assessment Billing SUMMER-7 Assessment Tool: SUMMER-7 Assessment 40655 Physical exam (Primary Care) Vital Signs: Last Vital Signs Pulse 106 H 01/18/24 10:09 Resp 12 01/18/24 10:09 BP 118/76 01/18/24 10:09 Pulse Ox 99 01/18/24 10:09 Oxygen Delivery Method Room Air 01/18/24 10:09 BMI result Body Mass Index 34.0 Tobacco/Smoking Status: Tobacco use Status Tobacco use date assessed 09/06/23 01/18/24 10:08 Patient Tobacco Use Status Never used Tobacco 01/18/24 10:08 e-Cigarette/Vaping Use Never Used 01/18/24 10:08 PHQ-9: PHQ-9 Score PHQ-9: Total score 0 01/18/24 10:22 Depression Screening Interpretation: Negative Thrive Assessment: Date of Thrive Assessment Date Thrive assessed 01/18/24 01/18/24 10:08 Currently or been in a relationship where the following occur: No concerns reported Assessment and Plan Assessment & Plan (1) Hospital discharge follow-up: Code(s): Z09 - Encounter for follow-up examination after completed treatment for conditions other than malignant neoplasm Plan: ER visit reviewed including labs, imaging. EKG changes with intermittent chest pain and increased shortness of breath. Will have her complete stress test. Did not tolerate recent trial of pravastatin. Will try atorvastatin though has not tolerated in the remote past (2) Abnormal EKG: Code(s): R94.31 - Abnormal electrocardiogram [ECG] [EKG] Orders: Orders CA stress test Today R07.9 - Chest pain, unspecified, R94.31 - Abnormal electrocardiogram [ECG] [EKG] Medications: New atorvastatin 10 mg PO BEDTIME 90 tabs 0RF 90 days Coding Level of Care Code Est Pt Level 4 (62163) Complex EM visit Add On G2211 Diagnoses Hospital discharge follow-up Z09 Abnormal EKG R94.31 Additional Codes SUMMER-7 Assessment Billing - SUMMER-7 Assessment Tool: SUMMER-7 Assessment 90833 ([id number])
[2024-01-18 10:09] VITALS: BP 118/76; PULSE 106; RESP 12; O2SAT 99; BMI 34.0
== END 2024-01-18 12:15 | disposition home or self-care (01) ==
PROVIDERS: PCP Internal Medicine; Visit Provider Internal Medicine
DX: R94.31 Abnormal electrocardiogram [ECG] [EKG] (principal); Z09 Encounter for follow-up examination after completed treatment for conditions other than malignant neoplasm
CPT/HCPCS: 99214

== ENCOUNTER → 2024-02-05 08:13 | Outpatient (REF) | payer BC, SELFPAY ==
--- NOTE | 2024-02-05 08:16 | CA_ITS ---
Acquisition Time: 2024-02-05 08:18:55 Total Exercise Time: 00:05:15 Test Indications: ABN EKG, CP, SOB Medications: SEE H Protocol: NINO Max HR: 146 BPM 89% of Pred: 163 BPM Max BP: 180/080 mmHG Max Work Load: 7.0 METS Exercise stress test exercise 5 min 15 sec of Nino protocol achieving 89% MPHR, with mild to moderate SOB, no chest discomfort, without arrhtyhmias, with resting HTN - appropriate response, without EKG changes from baseline. Test reviewed with Dr. Schwartz. Referred By: Elina Hong Overread By: Katarina Salazar
== END ==
LOC: HO.CARD 08:13
PROVIDERS: PCP Internal Medicine; Visit Provider Internal Medicine
DX: R07.9 Chest pain, unspecified (principal); R94.31 Abnormal electrocardiogram [ECG] [EKG]
CPT/HCPCS: 93017

== ENCOUNTER → 2024-02-05 08:16 | Outpatient (BNV) | payer BC, SELFPAY | PROVIDERS: PCP Internal Medicine; Visit Provider Nurse Practitioner | DX: R06.02 Shortness of breath (principal); I10 Essential (primary) hypertension | CPT/HCPCS: 93016; 93018 ==

== ENCOUNTER 2024-05-05 13:43 | Outpatient (AMB) | payer BC, SELFPAY ==
--- OUTSIDE RECORDS SUMMARY | 2024-05-05 13:46 | XMS_ITS | Continuity of Care Document ---
Author Organization [facility] Address [address] [place] [id number]- Care Team Providers Care Concrete Panel Installer Name Role Phone Hal ZAIDI, Elina Ingram Primary Care Physician [phone] Encounter [facility] Date(s): 03/31/24 - 04/30/24 [facility] [address] [place] [id number]- Encounter Type: Triage Allergies, Adverse Reactions, Alerts Substance Criticality Severity Reaction Reaction Severity Status codeine BACK PAIN PER PT Act danita erythromycin SEVERE ABD PAIN AND DISCOMFORT Active Betadine SKIN REACTION Active iodine Active iodinated radiocontrast dyes Active shellfish BREATHING PROBL EMS, SKIN REACTION Active Keflex makes throat fe el like it is closing Active Flagyl Active Bactrim SKIN RASH Active Immunizations Given and Recorded Vaccine Date Status Refusal Reason zoster vaccine, inactivated 12/08/22 Recorded zoster vaccine, inactivated 09/15/22 Recorded pneumococcal 20-valent conjugate vaccine 09/15/22 Recorded [id number] bivalent booster vax 02/09/22 Recorded influenza virus vaccine, inactivated 02/09/22 Ronen rded influenza virus vaccine, inactivated 02/01/21 Ronen rded influenza virus vaccine, inactivated 02/11/20 Ronen rded influenza virus vaccine, inactivated 01/13/20 Ronen rded influenza virus vaccine, inactivated 03/13/19 Ronen rded influenza virus vaccine, inactivated 02/07/18 Ronen rded influenza virus vaccine, inactivated 01/30/17 Ronen rded influenza virus vaccine, inactivated 02/11/16 Ronen rded influenza virus vaccine, inactivated 02/14/13 Ronen rded influenza virus vaccine, inactivated 02/13/12 Ronen rded influenza virus vaccine, inactivated 02/27/11 Ronen rded SARS-CoV-2 (COVID-19) mRNA-1273 vaccine 10/05/21 R ecorded SARS-CoV-2 (COVID-19) mRNA BNT-162b2 vac 02/01/21 Recorded SARS-CoV-2 (COVID-19) mRNA BNT-162b2 vac 08/08/20 Recorded SARS-CoV-2 (COVID-19) mRNA BNT-162b2 vac 07/18/20 Recorded tetanus/diphtheria/pertussis, acel(Tdap) 11/22/18 Recorded tetanus/diphtheria/pertussis, acel(Tdap) 06/01/08 Recorded tetanus-diphtheria toxoids (Td) 05/14/97 Recorded Medications Albuterol (Eqv-ProAir HFA) 90 mcg/inh inhalation aerosol 0 Refills, Maintenance, 05/02/23 11:31:00 AM EST, Partial fill upon patient request if the prescription is for a schedule II opioid drug. Start Date: 05/02/23 Status: Ordered Repeat number: 1 amitriptyline 25 mg oral tablet 1, tablet, By Mouth, Daily at bedtime, # 90 tablet, Refills 0, Tot. Refills 0, Maintenance, :38:00 AM EST, Route to Pharmacy Electronically, [facility]/pharmacy #[id number], 165, cm, 06/05/23 11:37:00 EST, Height Start Date: 06/06/23 Status: Ordered Quantity: 90.0 Unit: tablet Repeat number: 1 bempedoic acid-ezetimibe 180 mg-10 mg oral tablet 1 tablet, By Mouth, Daily, # 30 tablet, 2 Refills, Maintenance, 03/14/24 3:49:00 PM EDT, [facility]/pharmacy #[id number], Partial fill upon patient request if the prescription is for a schedule II opioid drug., 1 tablet By Mouth Daily, 168, cm, 03/14/24 15:23:00 EDT, Height, 84, kg, 01/07/24 16:09:00 EDT, Dry Weight Start Date: 03/14/24 Status: Ordered Quantity: 30.0 Unit: tablet Repeat number: 3 Dilt-XR 120 mg/24 hours oral capsule, extended release 1 capsule = 120 mg, By Mouth, Daily, # 30 capsule, 2 Refills, Maintenance, 03/14/24 3:50:00 PM EDT, ER Capsule, [facility]/pharmacy #[id number], Partial fill upon patient request if the prescription is for a schedule II opioid drug., 168, cm, 03/14/24 15:23:00 EDT, Height, 84, kg, 01/07/24 16:09:00 EDT, Dry Weight Start Date: 03/14/24 Status: Ordered Quantity: 30.0 Unit: capsule Repeat number: 3 EPINEPHrine (OP) 0 Refills, Maintenance, 2 Start Date: 07/19/21 Status: Ordered Repeat number: 1 fluticasone CFC free 110 mcg/inh inhalation aerosol 2 puffs, Inhalation, 2 times a day, X90 DAYS., # 12 each, 5 Refills, Maintenance, 09/27/22 2:24:00 PM EDT, [id number], 165, cm, 08/09/22 14:42:00 EDT, Height Start Date: 09/27/22 Status: Ordered Quantity: 12.0 Unit: each Repeat number: 1 gabapentin 100 mg oral capsule 100 mg, 1, capsule, By Mouth, 3 times a day, # 270 capsule, Refills 3, Tot. Refills 3, Maintenance,04/04/22 8:26:00 AM EST, Route to Pharmacy Electronically, [facility]/pharmacy #[id number], Partial fill upon patient request if the prescription is for a schedule II opioid drug., 165, cm, 12/08/21 8:40:00 EDT, H eight Start Date: 04/04/22 Stop Date: 03/30/23 Status: Ordered Quantity: 270.0 Unit: capsule Repeat number: 4 levothyroxine 0.05 mg oral tablet 1 tablet = 50 mcg, By Mouth, Daily, # 90 tablet, 1 Refills, Maintenance, 06/29/23 8:55:00 AM EST, Tablet, [facility]/pharmacy #[id number], Partial fill upon patient request if the prescription is for a schedule IIopioid drug., 165, cm, 06/27/23 12:58:00 EST, Height, 81.7, kg, 06/27/23 12:58:00 EST, Dry Weight Start Date: 06/29/23 Status: Ordered Quantity: 90.0 Unit: tablet Repeat number: 2 montelukast 10 mg oral tablet 1, tablet, By Mouth, Daily, # 90 tablet, Refills 1, Maintenance, 04/23/23 10:15:00 AM EST, Route toPharmacy Electronically, [id number], 165, cm, 04/09/23 11:41:00 EST, Height Start Date: 04/23/23 Status: Ordered Quantity: 90.0 Unit: tablet Repeat number: 1 Repatha Prefilled Syringe 140 mg/mL subcutaneous solution = 140 mg, Subcutaneous Infusion, Every 14 days, # 2 mL, 3 Refills, Maintenance, 04/09/23 12:09:00 PM EST, [facility]/pharmacy #[id number], Partial fill upon patient request if the prescription is for a schedule II opioid drug., 165, cm, 04/09/23 11:41:00 EST, Height Start Date: 04/09/23 Stop Date: 07/30/23 Status: Ordered Quantity: 2.0 Unit: mL Repeat number: 4 SUMAtriptan 50 mg oral tablet See Instructions, TAKE 1 TABLET BY MOUTH ONCE NEEDED FOR MIGRAINE HEADACHE*MAY REPEAT DOSE AFTER2 HOURS UP TO A MAXIMUM OF 200 MG IN 24 HOURS, # 9 tablet, 5 Refills, Maintenance, 06/06/23 12:19:00PM EST, [facility]/pharmacy #[id number], 165, cm, 06/05/23 11:37:00 EST, Height Start Date: 06/06/23 Status: Ordered Quantity: 9.0 Unit: tablet Repeat number: 6 Vitamin B-12 1000 mcg oral tablet 1,000 mcg, 1, tablet, By Mouth, Daily, # 30 tablet, Refills 0, Maintenance, 05/01/19 8:09:00 AM EST Start Date: 05/01/19 Status: Ordered Quantity: 30.0 Unit: tablet Repeat number: 1 Vitamin D3 1000 intl units oral tablet 1 tablet = 1,000 International_Units, By Mouth, Daily, # 30 tablet, 0 Refills, Maintenance, 05/01/19 8:09:00 AM EST, Tablet Start Date: 05/01/19 Status: Ordered Quantity: 30.0 Unit: tablet Repeat number: 1 zolpidem 10 mg oral tablet 1 tablet = 10 mg, By Mouth, Daily at bedtime, PRN as needed for insomnia, # 28 tablet, 2 Refills, Maintenance, 06/13/23 9:54:00 AM EST, Tablet, [facility]/pharmacy #[id number], Partial fill upon patient request ifthe prescription is for a schedule II opioid drug., 165, cm, 06/05/23 11:37:00 EST, Height Start Date: 06/13/23 Stop Date: 09/05/23 Status: Ordered Quantity: 28.0 Unit: tablet Repeat number: 3 Problem List Condition Confirmation Course Effective Dates Status H ealth Status Informant Asthma Confirmed Active HSIL on Pap smear of cervix Confirmed Active COVID-19 Confirmed 05/09/21 Active Diverticulitis Confirmed Active Essential hypertension Confirmed 07/16/17 Active Fibromyalgia Confirmed Active Irregular menses Confirmed Active Migraines Confirmed Active Obese class I Confirmed Active Tick bite Confirmed Active Vaginal discharge Confirmed Active Social History Social History Type Response Smoking Status Never (less than 100 in lifetime) entered on: 06/16/19 Sex Sex Representation Female (finding) Patient Care team information Care Team Personnel Name: Roxi Pal Position: [facility] Outreach Member Role: Lifetime Consulting Physician Name: Quin Mitchell RN Position: [facility] RN Member Role: Primary Care Nurse Name: Chante Pimentel RN Position: [facility] RN Member Role: Primary Care Nurse Name: Elina Hong MD Position: Reference Physician Member Role: PCP Address: [address] [place] [address] Telecom: Care Team Related Persons Name: ELOY STONE Insurance Providers Guarantor name: [facility] Health Plan Information #: 1 Payer: [employer] Member Number: NA Policy Number: NA Group Number: NA
--- NOTE | 2024-05-05 13:49 | MHC.PC.OV ---
Vital Signs 05/05/24 13:58 Height 5 ft 3 in Weight 188 lb 8 oz BMI 33.4 BP 110/74 Blood Pressure Location Lt brachial Position Sitting Pulse 88 Pulse Source Pulse Oximeter Pulse Oximetry (%) 98 Oxygen Delivery Method Room Air Intake Visit Reasons: Foot Pain and Swelling Intake Note: Bilateral foot pain and swelling, worse on the right. 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: No Allergies erythromycin base Allergy (Severe, Verified 05/05/24 13:49) Abdominal Pain amoxicillin Allergy (Intermediate, Verified 05/05/24 13:49) Rash codeine Allergy (Unknown, Verified 05/05/24 13:49) Back Pain metronidazole [From Flagyl] Allergy (Unknown, Verified 05/05/24 13:49) Unknown povidone-iodine [From Betadine] Allergy (Unknown, Verified 05/05/24 13:49) Rash sulfamethoxazole [From Bactrim] Allergy (Unknown, Verified 05/05/24 13:49) Rash trimethoprim [From Bactrim] Allergy (Unknown, Verified 05/05/24 13:49) Rash cephalexin [From Keflex] Allergy (Verified 05/05/24 13:49) throat closing shellfish Allergy (Unknown, Uncoded 05/05/24 13:49) skin reaction Tobacco use date assessed: 09/06/23 Dental Screening Dental Screen Date: 09/06/23 HPI HPI Comments History of Present Illness Details The patient is a 58 year old female with a past medical history of asthma, hyplipidemia, diveriticulitis, migraine, insomnia, COVID x 2 presenting for follow up Bilateral 1st TMT swelling, pain with mild redness for the past few weeks. Not an issue prior. No h/o gout. Has not yet started the bempedoic/zetira. No fevers, no streaking redness, no injury She was evaluated in [facility] ER on 01/07/24. Presented with lower extremity swelling, chest pain and shortness of breath. Had flown home from [place] 2 days prior. Patient noted to have b/l non pitting edema. Bilateral LE u/s negative for DVT. ACS work up negative. CXR, bnp normal. Her EKG did show new TWI in anterior leads changed from earlier this summer. She has been experiencing more externional dyspnea and intermittent chest pressure. She no longer has the leg swelling and shortness of breath which prompted her ER visit Heme/Onc: abnormal mammogram and u/s. MRI without evidence of malignancy. Surgery consult was waiting on MRI. This shows an indeterminate but not entirely suspicious appearing right breast mass. These were performed in response for abnormal u/s six months ago prior to which she reports normal mammograms. Gets these done at [facility]. She has been having tender axillary lymph nodes of the left breast. She has a family history of breast cancer. The original recommendation was for repeat testing in six months Asthma: Improved to baseline. Slow recovery from COVID May 2020. Recent COVID 06/2023. On flovent, albuterol prn CV: Hyperlipidemia. Following with cardiology. Tried multiple statins-lipitor, simvastatin, pravastatin. All led to increased myalgia. Recently tried pravastatin again with onset of significant muscle pain. Will send another statin today Insurance has not covered PCSK9 inhibitors Hypothyroid: Stable on levothyroxine 50mcg daily. Thyroid u/s reassuring 2023. History of diverticulitis s/p colonic resection 2018 without recent issue Fibromyalgia: stopped statin with some relief last year. Continues gabapentin, elavil Insomnia: Well controlled on ambien Mammo 09/2023 ROS see HPI PHYSICAL EXAM: GENERAL: Alert and oriented x 3. NAD EYES: EOMI. Anicteric. HENT: Moist mucous membranes. No scleral icterus. No cervical lymphadenopathy. LUNGS: Decreasing airflow, scant wheezing CARDIOVASCULAR: Regular rate and rhythm. No murmur. No JVD. ABDOMEN: Soft, non-tender +bs EXTREMITIES: Bilateral 1st metatarsal swelling, no significant wamth, mild redness SKIN: Tender axilla no large LN appreciated NEUROLOGIC: No focal neurological deficits. CN II-XII grossly intact PSYCHIATRIC: Cooperative. Appropriate mood and affect [facility] Family History Mother Lung cancer Father Stomach cancer Paternal Aunt Breast cancer Brother Autoimmune disorder Social History (Updated 05/05/24 @ 13:58 by Maggie Suarez CMA) Housing: House Alcohol intake: current Patient Tobacco Use Status: Never used Tobacco e-Cigarette/Vaping Use: Never Used Second Hand Smoke Exposure: Yes (past) service: No Current occupational status: employed Current occupational exposures/hazards: No (past) Cognitive needs: No Hearing needs: No Vision needs: No Questionnaire Thrive Questionnaire Date Thrive assessed: 01/18/24 I am a: Patient What is your living situation today?: I have a steady place to live Within the past 12 months, did the food you bought not last and you didn't have the money to get more?: Never true Within the past 12 months, did you worry whether your food would run out before you got money to buy more?: Never true Do you have trouble paying for medicines?: No Do you have trouble getting transportation to medical appointments?: No Do you have trouble paying your heating and electricity bill?: No Do you have trouble taking care of your child, family member or friend?: No Do you have trouble with day-to-day activities such as bathing, preparing meals, shopping, managing finances, etc.?: No Are you currently unemployed and looking for a job?: No Are you interested in more education?: Yes Please select the resources that you would like help with: None Currently or been in a relationship where the following occur: No concerns reported THRIVE Score: 0 SUMMER-7 AMB Questionnaire SUMMER-7 Date SUMMER - 7 assessed: 01/18/24 Source: Developed by Drs. Javi Whatley, Yaneth Salomon, Speedy Ward and colleagues, with an educational selvin from [employer]. Physical exam (Primary Care) Vital Signs: Last Vital Signs Pulse 88 05/05/24 13:58 BP 110/74 05/05/24 13:58 Pulse Ox 98 05/05/24 13:58 Oxygen Delivery Method Room Air 05/05/24 13:58 BMI result Body Mass Index 33.4 Tobacco/Smoking Status: Tobacco use Status Tobacco use date assessed 09/06/23 05/05/24 14:00 Patient Tobacco Use Status Never used Tobacco 05/05/24 14:00 e-Cigarette/Vaping Use Never Used 05/05/24 14:00 Thrive Assessment: Date of Thrive Assessment Date Thrive assessed 01/18/24 05/05/24 14:00 Currently or been in a relationship where the following occur: No concerns reported Coding Level of Care Code Est Pt Level 4 (41550) Complex EM visit Add On G2211 Diagnoses Bilateral foot pain M79.671; M79.672 Assessment & Plan Assessment & Plan (1) Bilateral foot pain: Code(s): M79.671 - Pain in right foot; M79.672 - Pain in left foot Category: Medical Plan: Will start prednisone, refer to rheumatology Uric acid, RF and CCP ordered Orders: Orders Rheumatoid Factor 05/05/24 M79.671 - Pain in right foot, M79.672 - Pain in left foot Uric Acid 05/05/24 M79.671 - Pain in right foot, M79.672 - Pain in left foot Cyclic Citrullinated Peptide 05/05/24 M79.671 - Pain in right foot, M79.672 - Pain in left foot Referrals Rheumatology Referral M79.671 - Pain in right foot, M79.672 - Pain in left foot Medications: New prednisone 40 mg (2 x 20 mg) PO DAILY 10 tabs 0RF 5 days Wegovy (semaglutide (weight loss)) administer weeks 1 through 4 of therapy 0.25 mg (0.5 mL) subcut QWEEK 2 mL 3RF NS
[2024-05-05 13:58] VITALS: BP 110/74; PULSE 88; O2SAT 98; BMI 33.4
== END 2024-05-05 15:25 | disposition home or self-care (01) ==
PROVIDERS: PCP Internal Medicine; Visit Provider Internal Medicine
DX: M79.671 Pain in right foot (principal); M79.672 Pain in left foot

== ENCOUNTER → 2024-05-05 13:43 | Outpatient (BNVA) | payer BC, SELFPAY | PROVIDERS: PCP Internal Medicine; Visit Provider Internal Medicine ==

== ENCOUNTER 2024-05-05 14:56 | Outpatient (REF) | payer BC, SELFPAY ==
[2024-05-05 17:50] LABS: Rheumatoid Factor < 13.0 IU/mL (<15.0); Uric Acid 6.5 mg/dL (2.4-5.7)
[2024-05-09 11:33] LABS: Cyclic Citrullinated Peptide <16 UNITS
== END 2024-05-05 14:57 | disposition home or self-care (01) ==
LOC: HO.WFDLDS 14:56
PROVIDERS: Visit Provider Internal Medicine
DX: M79.671 Pain in right foot (principal); M79.672 Pain in left foot
CPT/HCPCS: 36415; 84550; 86200; 86431

== ENCOUNTER 2024-06-02 14:02 | Outpatient (AMB) | payer BC, SELFPAY ==
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
[2024-06-02 14:17] VITALS: BP 142/79; PULSE 79; BMI 30.2
== END 2024-06-02 15:05 | disposition home or self-care (01) ==
PROVIDERS: PCP Internal Medicine; Visit Provider Internal Medicine
DX: K29.70 Gastritis, unspecified, without bleeding (principal); R10.13 Epigastric pain; Z80.0 Family history of malignant neoplasm of digestive organs
CPT/HCPCS: 99204

== ENCOUNTER → 2024-06-02 14:02 | Outpatient (BNVA) | payer BC, SELFPAY | PROVIDERS: PCP Internal Medicine; Visit Provider Internal Medicine ==

== ENCOUNTER 2024-07-08 08:01 | Outpatient (AMB) | payer BC, SELFPAY ==
--- NOTE | 2024-07-08 08:04 | AM.OFFWIN_ITS ---
Intake Vital Signs 07/08/24 08:08 Height 5 ft 6 in Weight 188 lb 4 oz BMI 30.4 BP 98/66 Blood Pressure Location Lt brachial Position Sitting Respiration 12 Pulse 123 H Pulse Source Pulse Oximeter Temp 98.1 F Temp Source Oral Pulse Oximetry (%) 96 Oxygen Delivery Method Room Air Intake Visit Reasons: flu like symptoms (rsv?) Intake Note: Patient complaining of congested, coughing, fever, extremely fatigue, also patient tested at home for flu and covid both came back negative x 3 days Patient Tobacco Use Status: Never used Tobacco Allergies erythromycin base Allergy (Severe, Verified 07/08/24 08:13) Abdominal Pain amoxicillin Allergy (Intermediate, Verified 07/08/24 08:13) Rash codeine Allergy (Unknown, Verified 07/08/24 08:13) Back Pain metronidazole [From Flagyl] Allergy (Unknown, Verified 07/08/24 08:13) Unknown povidone-iodine [From Betadine] Allergy (Unknown, Verified 07/08/24 08:13) Rash sulfamethoxazole [From Bactrim] Allergy (Unknown, Verified 07/08/24 08:13) Rash trimethoprim [From Bactrim] Allergy (Unknown, Verified 07/08/24 08:13) Rash cephalexin [From Keflex] Allergy (Verified 07/08/24 08:13) throat closing shellfish Allergy (Unknown, Uncoded 07/08/24 08:13) skin reaction Medication List - Last Reconciled 07/08/24 by Lakshmi Hooper, [facility]- albuterol sulfate 90 mcg/actuation 2 puffs inhalation Q6H PRN albuterol sulfate 2.5 mg (3 mL) inhalation Q4-6H PRN amitriptyline 50 mg PO BEDTIME diltiazem HCl ER (DILT-XR) 180 mg PO DAILY epinephrine (EpiPen 2-Luis) 0.3 mg (0.3 mL) IM Q4H PRN ezetimibe mg PO DAILY fluticasone propionate 220 mcg/actuation 2 puffs inhalation BID gabapentin 300 mg PO TID 90 days levothyroxine 50 mcg PO DAILY lifitegrast 5% (Xiidra) 1 drp ophthalmic (eye) BID montelukast 10 mg PO DAILY omeprazole 20 mg PO DAILY orphenadrine citrate ER 100 mg PO BID 90 days peg 3350-electrolytes 236-22.74-6.74 -5.86 gram (Golytely) 240 mL PO Q10M prednisone 40 mg (2 x 20 mg) PO DAILY 5 days sumatriptan succinate take 1 tab at onset of headache; if no relief may repeat 1 tab after at least 2 hrs; max = 4 tabs/24 hr PO tirzepatide (weight loss) (Zepbound) 2.5 mg (0.5 mL) subcut QWEEK Wegovy (semaglutide (weight loss)) 0.25 mg (0.5 mL) subcut QWEEK NS zolpidem 10 mg PO BEDTIME PRN 30 days Zyloprim (allopurinol) 100 mg PO DAILY NS Do you need a note to return to daycare/school/sports/work: Yes HPI HPI Comments History of Present Illness Details History - The patient is a 59-year-old female pr esenting with symptoms of coughing, congestion, fever, and fatigue over the past three days. - Home tests for influenza and COVID-19 have returned negative. - The patient self-administers Tylenol f or fever alleviation and Afrin for nasal congestion, which has led to left nostril epistaxis. - No known sick contacts or recent trave l history, but attended a crowded event recently. - Complaints of sore throat, particularl y painful when swallowing, but congestion and headache are more prominent symptoms. Physical Exam General: Awake, alert. No apparent distress, mildly ill appearing Eyes: Sclera and conjunctiva clear bilaterally Nose: Nares patent, turbinate erythematous, scant blood on L, no sinus tenderness with palpation bilaterally Ears: Tympanic membranes intact and clear bilaterally Throat: Moist mucosa membrane, pharynx within normal limits,no exudate or ac adenopathy, uvula midline Cardiovascular: Regular rhythm, tachycardic Respiratory: Clear to auscultation bilaterally Results - Tests and Diagnostics: - Negative for home influenza and COVID-19 tests. - streptococcal swab: Negative -Viral Swab pending Discussion Notes I discussed with the patient the likely viral etiology of her symptoms, despite the negative home tests for influenza and COVID-19. I explained the importance of avoiding Afrin nasal spray due to associated risks, including epistaxis. I informed her of further testing to confirm or rule out streptococcal infection and other respiratory viruses, which should have results later today. We talked about the potential for a viral infection like RSV to cause similar symptoms and the general measures needed to support symptomatic relief. Additionally, I advised her on proper hydration, rest, and uujd-cat-fltlzde remedies for symptom management. I addressed her concerns about attending the crowded event and the unlikely contact transmission from that experience. Assessment and Plan 1. Acute Upper Respiratory Infection: Th e patient?s clinical presentation suggests a viral etiology given the negative home influenza and COVID-19 tests. The primary plan includes symptomatic management with acetaminophen for fever and abstaining from Afrin due to bleeding risk. Awaiting viral panel results to confirm the diagnosis and tailor further treatment accordingly. Paxlovid if COVID, Tamiflu if flu, supportive care if RSV. Will RX anti-tussive. Work note for the week. 2. Epistaxis secondary to nasal deconges tant use: I advised discontinuation of Afrin nasal spray to address nasal bleeding. Alternative measures such as saline sprays and humidification were discussed. Monitoring for resolution of symptoms will guide further intervention if necessary. Patient Instructions - Avoid using Afrin nasal spray to preve nt further nosebleeds. - Use saline nasal spray and a humidifie r to relieve nasal congestion. - Continue taking acetaminophen for feve r and symptom relief as needed. - Ensure adequate hydration and rest. Consent Patients consented to the strep swab and viral testing after discussing the indications and expected time for results. She understands the risks associated with Afrin use and agrees to the recommended discontinuation and alternative measures for nasal congestion management. The patient expressed understanding and agreement with the plan discussed during this visit. Patient was informed and verbally consented to the use of an ambient scribe for clinic note documentation during this visit. Total time spent caring for the patient today was 30 minutes. This includes time spent before the visit reviewing the chart, time spent during the visit, and time spent after the visit on documentation, reviewing laboratory results, diagnostic imaging, medications, performing a medically necessary evaluation, counseling on diagnoses, care coordination, ordering appropriate tests, ordering appropriate medications, review of tests performed by other providers, reporting test results with the patient, communication with other healthcare providers. [facility] Surgical History History of esophagogastroduodenoscopy (EGD) Hx of resection of large bowel Hx of colonoscopy Family History (Updated 06/02/24 @ 14:19 by KAY Escobar) Mother Lung cancer Colon cancer Father Stomach cancer Paternal Aunt Breast cancer Brother Autoimmune disorder Social History Housing: House Alcohol intake: current Patient Tobacco Use Status: Never used Tobacco e-Cigarette/Vaping Use: Never Used Second Hand Smoke Exposure: Yes (past) service: No Current occupational status: employed Current occupational exposures/hazards: No (past) Cognitive needs: No Hearing needs: No Vision needs: No Physical Exam Vital Signs: Last Vital Signs Temp 98.1 F 07/08/24 08:08 Pulse 123 H 07/08/24 08:08 Resp 12 07/08/24 08:08 BP 98/66 07/08/24 08:08 Pulse Ox 96 07/08/24 08:08 Oxygen Delivery Method Room Air 07/08/24 08:08 BMI result Body Mass Index 30.4 Results AMB Rapid Strep AMB Rapid Strep Negative Last Edit by Margaret Bowman on 07/08/24 08:24 Assessment & Plan Assessment & Plan (1) Flu-like symptoms: Code(s): R68.89 - Other general symptoms and signs Plan ./ Orders: Orders SARS-CoV2/FLU/RSV Today R09.89 - Other specified symptoms and signs involving the circulatory and respiratory systems, R68.89 - Other general symptoms and signs AMB Rapid Strep Screen Today Z13.9 - Encounter for screening, unspecified Patient Instructions: Influenza (flu) is an infection in the lungs and breathing passages. It is caused by the influenza virus. There are different strains, or types, of the flu virus from year to year. Unlike the common cold, the flu comes on suddenly and the symptoms can be more severe. These symptoms include a cough, congestion, fever, chills, fatigue, aches, and pains. These symptoms may last for a few weeks. Although the flu can make you feel very sick, it usually doesn't cause serious health problems. Home treatment is usually all you need for flu symptoms. But your doctor may prescribe antiviral medicine to prevent other health problems, such as pneumonia, from developing. The risk of other health problems from the flu is highest for young children (under 5), older adults (over 65), women, people with long-term health conditions, people who live in nursing homes or long-term care centres, and indigenous peoples. How can you care for yourself at home? Get plenty of rest. Drink plenty of fluids. If you have to limit fluids because of a health problem, talk with your doctor before you increase the amount of fluids you drink. Take an kykj-kxy-gunligo pain medicine if needed, such as acetaminophen (Tyle nol), ibuprofen (Advil, Motrin), or naproxen (Aleve), to relieve fever, headache, and muscle aches. Read and follow all instructions on the label. No one younger than 18 should take aspirin. It has been linked to Lauryn syndrome, a serious illness. Take any prescribed medicine exactly as directed. Do not smoke. Smoking can make the flu worse. If you need help quitting, talk to your doctor about stop-smoking programs and medicines. These can increase your chances of quitting for good. If the skin around your nose and lips becomes sore, put some petroleum jelly (such as Vaseline) on the area. To ease coughing: Suck on cough drops or plain, hard candy. Try an qssu-dea-ndkqbjl cough or cold medicine. Read and follow all instructions on the label. Raise your head at night with an extra pillow. This may help you rest if coughing keeps you awake. To avoid spreading the flu Wash your hands regularly, and keep your hands away from your face. Stay home from school, work, and other public places until you are feeling better and your fever has been gone for at least 24 hours. The fever needs to have gone away on its own without the help of medicine. Ask people living with you to talk to their doctors about preventing the flu. They may get antiviral medicine to keep from getting the flu from you. To prevent the flu in the future, get the flu vaccine every fall. Encourage people living with you to get the vaccine. Cover your mouth when you cough or sneeze. If you can, cough or sneeze into the bend of your elbow, not your hands. When should you call for help? Call 911 anytime you think you may need emergency care. For example, call if: You have severe trouble breathing. You have a seizure. Call your doctor or nurse advice line now or seek immediate medical care if: You have trouble breathing. You have a fever with a stiff neck or a severe headache. You have pain or pressure in your chest or belly. You have a fever or cough that returns after getting better. You feel very sleepy, dizzy, or confused. You are not urinating. You have severe muscle pain. You have severe weakness, or you are unsteady. You have medical conditions that are getting worse Watch closely for changes in your health, and be sure to contact your doctor or nurse advice line if: You do not get better as expected. You are having a problem with your medicine. Coding Level of Care Code Est Pt Level 4 (93076) Diagnoses Flu-like symptoms R68.89
--- OUTSIDE RECORDS SUMMARY | 2024-07-08 08:04 | XMS_ITS | Continuity of Care Document ---
Author Organization [facility] Address [address] [place] [address]- Care Team Providers Care Inspector Casing Name Role Phone Hal ZAIDI, Elina Ingram Primary Care Physician Encounter [facility] Date(s): 06/04/24 - 07/04/24 [facility] [address] [place] [id number] Encounter Type: Triage Allergies, Adverse Reactions, Alerts Substance Criticality Severity Reaction Reaction Severity Status codeine BACK PAIN PER PT Act danita erythromycin SEVERE ABD PAIN AND DISCOMFORT Active iodinated radiocontrast dyes Active shellfish BREATHING PROBL EMS, SKIN REACTION Active Keflex makes throat fe el like it is closing Active Flagyl Active Betadine SKIN REACTION Active Bactrim SKIN RASH Active iodine Active Immunizations Given and Recorded Vaccine Date Status Refusal Reason zoster vaccine, inactivated 12/08/22 Recorded zoster vaccine, inactivated 09/15/22 Recorded pneumococcal 20-valent conjugate vaccine 09/15/22 Recorded [id number] bivalent booster vax 02/09/22 Recorded influenza virus [...] :38:00 AM EST, Route to Pharmacy Electronically, [facility]/pharmacy #[id number], 165, cm, 06/05/23 11:37:00 EST, Height Start Date: 06/06/23 Status: Ordered Quantity: 90.0 Unit: tablet Repeat number: 1 Dilt-XR 120 mg/24 hours oral capsule, extended release 1 capsule = 120 mg, By Mouth, Daily, # 90 capsule, 3 Refills, Maintenance, 06/04/24 2:09:00 PM EST, ER Capsule, [facility]/pharmacy #[id number], Partial fill upon patient request if the prescription is for a schedule II opioid drug., 168, cm, 03/14/24 15:23:00 EDT, Height, 84, kg, 01/07/24 16:09:00 EDT, Dry Weight Start Date: 06/04/24 Status: Ordered Quantity: 90.0 Unit: capsule Repeat number: 4 EPINEPHrine (OP) 0 Refills, Maintenance, 2 Start Date: 07/19/21 Status: Ordered Repeat number: 1 ezetimibe 10 mg oral tablet 1 tablet = 10 mg, By Mouth, Daily, # 90 each, 5 Refills, Maintenance, 06/25/24 10:49:00 AM EST, Tablet, [facility]/pharmacy #[id number], Partial fill upon patient request if the prescription is for a schedule II opioid drug., 168, cm, 06/25/24 10:28:00 EST, Height, 84, kg, 01/07/24 16:09:00 EDT, Dry Weight Start Date: 06/25/24 Status: Ordered Quantity: 90.0 Unit: each Repeat number: 6 fluticasone CFC free 110 mcg/inh inhalation aerosol 2 puffs, Inhalation, 2 times a day, X90 DAYS., # 12 each, 5 Refills, Maintenance, 09/27/22 2:24:00 PM EDT, [id number], 165, cm, 08/09/22 14:42:00 EDT, Height Start Date: 09/27/22 Status: Ordered Quantity: 12.0 Unit: each Repeat number: 1 gabapentin 100 mg oral capsule 100 mg, 1, capsule, By Mouth, 3 times a day, # 270 capsule, Refills 3, Tot. Refills 3, Maintenance,04/04/22 8:26:00 AM EST, Route to Pharmacy Electronically, [facility]/pharmacy #[id number], Partial fill upon patient request if the prescription is for a schedule II opioid drug., 165, cm, 12/08/21 8:40:00 EDT, H eight Start Date: 04/04/22 Stop Date: 03/30/23 Status: Ordered Quantity: 270.0 Unit: capsule Repeat number: 4 levothyroxine 0.05 mg oral tablet 1 tablet = 50 mcg, By Mouth, Daily, # 90 tablet, 1 Refills, Maintenance, 06/29/23 8:55:00 AM EST, Tablet, [facility]/pharmacy #[id number], Partial fill upon patient request if the prescription is for a schedule IIopioid drug., 165, cm, 06/27/23 12:58:00 EST, Height, 81.7, kg, 06/27/23 12:58:00 EST, Dry Weight Start Date: 06/29/23 Status: Ordered Quantity: 90.0 Unit: tablet Repeat number: 2 montelukast 10 mg oral tablet 1, tablet, By Mouth, Daily, # 90 tablet, Refills 1, Maintenance, 04/23/23 10:15:00 AM EST, Route toPharmacy Electronically, [id number], 165, cm, 04/09/23 11:41:00 EST, Height Start Date: 04/23/23 Status: Ordered Quantity: 90.0 Unit: tablet Repeat number: 1 SUMAtriptan 50 mg oral tablet See Instructions, TAKE 1 TABLET BY MOUTH ONCE NEEDED FOR MIGRAINE HEADACHE*MAY REPEAT DOSE AFTER2 HOURS UP TO A MAXIMUM OF 200 MG IN 24 HOURS, # 9 tablet, 5 Refills, Maintenance, 06/06/23 12:19:00PM EST, [id number], 165, cm, 06/05/23 11:37:00 EST, Height [...] Refills, Maintenance, 06/13/23 9:54:00 AM EST, Tablet, [id number], Partial fill upon patient request ifthe [...] Care Team Personnel Name: Roxi Pal Position: [facility] Outreach Member Role: Lifetime Consulting Physician Name: Quin Mitchell RN Position: [facility] RN Member Role: Primary Care Nurse Name: Chante Pimentel RN Position: [facility] RN Member Role: Primary Care Nurse Name: Hal ZAIDI, Elina Ingram Position: Reference Physician Member Role: PCP Address: [address] [place] [id number] Telecom: Care Team Related Persons Name: ELOY STONE Insurance Providers Guarantor name: [facility] Information #: 1 Payer: [place]: ADVANCED PAYMENT EXAM Member Number: NA Policy Number: NA Group Number: NA
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
--- OUTSIDE RECORDS SUMMARY | 2024-07-08 08:04 | XMS_ITS | Continuity of Care Document ---
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 Role Phone Hal ZAIDI, Elina Ingram Primary Care Physician [phone] Encounter [facility] Date[facility]s): 05/12/24 - 06/11/24 [facility] [address] [place] [address]- Encounter Type: Triage Allergies, Adverse Reactions, Alerts [...] Recorded pneumococcal 20-valent conjugate vaccine 09/15/22 Recorded [id number] bivalent booster vax 02/09/22 Recorded influenza virus [...] :38:00 AM EST, Route to Pharmacy Electronically, [facility]/pharmacy #[id number], 165, cm, 06/05/23 11:37:00 EST, Height Start Date: 06/06/23 Status: Ordered Quantity: 90.0 Unit: tablet Repeat number: 1 Dilt-XR 120 mg/24 hours oral capsule, extended release 1 capsule = 120 mg, By Mouth, Daily, # 90 capsule, 3 Refills, Maintenance, 06/04/24 2:09:00 PM EST, ER Capsule, [facility]/pharmacy #[id number], Partial fill upon patient request if [...] = 10 mg, By Mouth, Daily, # 30 tablet, 5 Refills, Maintenance, 05/19/24 12:14:00 PM EST, Tablet, [facility]/pharmacy #[id number], Partial fill upon patient request if the prescription is for a schedule II opioid drug., 168, cm, 03/14/24 15:23:00 EDT, Height, 84, kg, 01/07/24 16:09:00 EDT, Dry Weight Start Date: 05/19/24 Status: Ordered Quantity: 30.0 Unit: tablet Repeat number: 6 fluticasone CFC free 110 mcg/inh inhalation aerosol 2 puffs, Inhalation, 2 times a day, X90 DAYS., # 12 each, 5 Refills, Maintenance, 09/27/22 2:24:00 PM EDT, [id number], 165, cm, 08/09/22 14:42:00 EDT, Height Start Date: 09/27/22 Status: Ordered Quantity: 12.0 Unit: each Repeat number: 1 gabapentin 100 mg oral capsule 100 mg, 1, capsule, By Mouth, 3 times a day, # 270 capsule, Refills 3, Tot. Refills 3, Maintenance,04/04/22 8:26:00 AM EST, Route to Pharmacy Electronically, [facility]/pharmacy #[id number], Partial fill upon patient request if the prescription is for a schedule II opioid drug., 165, cm, 12/08/21 8:40:00 EDT, H eight Start Date: 04/04/22 Stop Date: 03/30/23 Status: Ordered Quantity: 270.0 Unit: capsule Repeat number: 4 levothyroxine 0.05 mg oral tablet 1 tablet = 50 mcg, By Mouth, Daily, # 90 tablet, 1 Refills, Maintenance, 06/29/23 8:55:00 AM EST, Tablet, [facility]/pharmacy #[id number], Partial fill upon patient request if the prescription is for a schedule IIopioid drug., 165, cm, 06/27/23 12:58:00 EST, Height, 81.7, kg, 06/27/23 12:58:00 EST, Dry Weight Start Date: 06/29/23 Status: Ordered Quantity: 90.0 Unit: tablet Repeat number: 2 montelukast 10 mg oral tablet 1, tablet, By Mouth, Daily, # 90 tablet, Refills 1, Maintenance, 04/23/23 10:15:00 AM EST, Route toPharmacy Electronically, [id number], 165, cm, 04/09/23 11:41:00 EST, Height Start Date: 04/23/23 Status: Ordered Quantity: 90.0 Unit: tablet Repeat number: 1 Repatha Prefilled Syringe 140 mg/mL subcutaneous solution = 140 mg, Subcutaneous Infusion, Every 14 days, # 2 mL, 3 Refills, Maintenance, 04/09/23 12:09:00 PM EST, [facility]/pharmacy #[id number], Partial fill upon patient request if [...] tablet, 5 Refills, Maintenance, 06/06/23 12:19:00PM EST, [facility]/pharmacy #[id number], 165, cm, 06/05/23 11:37:00 EST, Height [...] Refills, Maintenance, 06/13/23 9:54:00 AM EST, Tablet, [facility]/pharmacy #[id number], Partial fill upon patient request ifthe [...] Care Team Personnel Name: Roxi Pal Position: [facility] Outreach Member Role: Lifetime Consulting Physician Name: Quin Mitchell RN Position: [facility] RN Member Role: Primary Care Nurse Name: Chante Pimentel RN Position: [facility] RN Member Role: Primary Care Nurse Name: Elina Hong MD Position: Reference Physician Member Role: PCP Address: [address] [place] [address] Telecom: Care Team Related Persons Name: ELOY STONE Insurance Providers Guarantor name: [facility] Health Plan Information #: 1 Payer: [employer] Member Number: NA Policy Number: NA Group Number: NA
--- OUTSIDE RECORDS SUMMARY | 2024-07-08 08:04 | XMS_ITS | Continuity of Care Document ---
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 Name Role Phone Hal ZAIDI, Elina Ingram Primary Care Physician [facility]counter [facility] Date(s): 05/19/24 - 06/18/24 [facility] [address] [place] [phone]- Encounter Type: Triage Allergies, Adverse Reactions, Alerts Substance Criticality Severity Reaction Reaction Severity Status codeine BACK PAIN PER PT Act danita erythromycin SEVERE ABD PAIN AND DISCOMFORT Active shellfish BREATHING PROBL EMS, SKIN REACTION Active Keflex makes throat fe el like it is closing Active Betadine SKIN REACTION Active iodine Active iodinated radiocontrast dyes Active Flagyl Active Bactrim SKIN RASH Active Immunizations Given and Recorded Vaccine Date Status Refusal Reason zoster vaccine, inactivated 12/08/22 Recorded zoster vaccine, inactivated 09/15/22 Recorded pneumococcal 20-valent conjugate vaccine 09/15/22 Recorded [id number] bivalent booster vax 02/09/22 Recorded influenza virus [...] :38:00 AM EST, Route to Pharmacy Electronically, [facility]/pharmacy #[id number], 165, cm, 06/05/23 11:37:00 EST, Height Start Date: 06/06/23 Status: Ordered Quantity: 90.0 Unit: tablet Repeat number: 1 Dilt-XR 120 mg/24 hours oral capsule, extended release 1 capsule = 120 mg, By Mouth, Daily, # 90 capsule, 3 Refills, Maintenance, 06/04/24 2:09:00 PM EST, ER Capsule, [facility]/pharmacy #[id number], Partial fill upon patient [...] Refills, Maintenance, 05/19/24 12:14:00 PM EST, Tablet, [facility]/pharmacy #[id number], Partial fill upon patient [...] 5 Refills, Maintenance, 09/27/22 2:24:00 PM EDT, [id number], 165, cm, 08/09/22 14:42:00 EDT, Height Start Date: 09/27/22 Status: Ordered Quantity: 12.0 Unit: each Repeat number: 1 gabapentin 100 mg oral capsule 100 mg, 1, capsule, By Mouth, 3 times a day, # 270 capsule, Refills 3, Tot. Refills 3, Maintenance,04/04/22 8:26:00 AM EST, Route to Pharmacy Electronically, [facility]/pharmacy #[id number], Partial fill upon patient [...] Refills, Maintenance, 06/29/23 8:55:00 AM EST, Tablet, [facility]/pharmacy #[id number], Partial fill upon patient [...] 04/23/23 10:15:00 AM EST, Route toPharmacy Electronically, [id number], 165, cm, 04/09/23 11:41:00 EST, Height Start Date: 04/23/23 Status: Ordered Quantity: 90.0 Unit: tablet Repeat number: 1 Repatha Prefilled Syringe 140 mg/mL subcutaneous solution = 140 mg, Subcutaneous Infusion, Every 14 days, # 2 mL, 3 Refills, Maintenance, 04/09/23 12:09:00 PM EST, [facility]/pharmacy #[id number], Partial fill upon patient [...] Care Team Personnel Name: Roxi Pal Position: [facility] Outreach Member Role: Lifetime Consulting Physician Name: Quin Mitchell RN Position: S RN Member Role: Primary Care Nurse Name: Chante Pimentel RN Position: [facility] RN Member Role: Primary Care Nurse Name: Elina Hong MD Position: Reference Physician Member Role: PCP Address: [address] [place] [address] Telecom: Care Team Related Persons Name: ELOY STONE Insurance Providers Guarantor name: [facility] Plan Information #: 1 Payer: [employer] Member Number: NA Policy Number: NA Group Number: NA
[2024-07-08 08:08] VITALS: BP 98/66; PULSE 123; RESP 12; TEMP 36.7; O2SAT 96; BMI 30.4
== END 2024-07-08 08:44 | disposition home or self-care (01) ==
LOC: HO.HMCWIW 08:01
PROVIDERS: PCP Internal Medicine; Visit Provider Nurse Practitioner Family
DX: Z13.9 Encounter for screening, unspecified (principal); R68.89 Other general symptoms and signs

== ENCOUNTER 2024-07-08 08:01 | Outpatient (REF) | payer BC, SELFPAY ==
[2024-07-08 13:37] LABS: Influenza A PCR NEGATIVE (Negative); Influenza B PCR NEGATIVE (Negative); Resp Syncy Virus RNA Qual PCR NEGATIVE (Negative); SARS COV2 PCR INHOUSE NEGATIVE (Negative)
--- OUTSIDE RECORDS SUMMARY | 2024-07-08 14:52 | XMS_ITS | Clinical Summary ---
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 COLONOSCOPY 11/16/2009 PROCEDURE: HISTORICAL COLONOSCOPY; COMMENT: no polyps; minimal diverticulosis ESOPHAGOGASTRODUODENOSCOPY 04/23/20 PROCEDURE: [place] ESOPHAGOGASTRODUODENOSCOPY TRANSORAL DIAGNOSTIC; COMMENT: normal; not on PPI meds. CHOLECYSTECTOMY PROCEDURE: LAPAROSCOPY, CHOLECYSTECTOMY; COMMENT: Herve; [facility] COLONOSCOPY 2013 PROCEDURE: HISTORICAL COLONOSCOPY; COMMENT: No polyps. CERVICAL BIOPSY W/ LOOP ELECTRODE EXCISION PROCEDURE: [facility] CONIZATION CERVIX W/WO D&C RPR ELTRD EXC [...]
== END 2024-07-08 08:02 | disposition home or self-care (01) ==
LOC: HO.LNP 08:01
PROVIDERS: PCP Internal Medicine; Visit Provider Nurse Practitioner Family
DX: R50.9 Fever, unspecified (principal); R05.9 Cough, unspecified; R09.89 Other specified symptoms and signs involving the circulatory and respiratory systems; R06.89 Other abnormalities of breathing
CPT/HCPCS: 0241U; 87880

== ENCOUNTER 2024-07-15 | Outpatient (REF) | payer BC, SELFPAY ==
--- OUTSIDE RECORDS SUMMARY | 2024-07-17 17:53 | XMS_ITS | Encounter Summary ---
[facility] Address [address] [place] [address] Care Team Providers Care Community Support Worker Name Role Phone Bryan Vasquez MD Primary Care Provider Unavail able Elina Mendez MD Primary Care Provider Ifrah jiang [facility], Pcp Primary Care Provider [facility] Encounter Details Date Type Department Care Team Description 09/23/2014 Form Tamping Machine Operator Report Medical Records [address] [place] [address] Juan Manuel Brown MD Social History Tobacco [...] filedocumented in this encounter Care Teams Community Support Worker Relationship Specialty Start Date End Date Bryan Vasquez MD PCP - General 05/27/02 03/11/15 Elina Mendez MD PCP - General Internal Medicine 07/21/20 05/17/21 [facility], Pcp PCP - General Internal Medicine 05/18/21 documented as of this encounter
--- OUTSIDE RECORDS SUMMARY | 2024-07-17 17:53 | XMS_ITS | Clinical Summary ---
Author Organization [facility] Address [address] [place] [address] Care Team Providers Care Apprentice Machinist Outside Name Role Phone Unavailable Primary Care Provider Unavailabl e Surgical History Surgery Date Site/Laterality Comments OTHER SURGICAL HISTORY 1992 PROCEDURE: [place] RADIAL KERATOTOMY; COMMENT: x 6 HERNIA REPAIR 1990 PROCEDURE: REPAIR INGUINAL HERNIA; COMMENT: RT OTHER SURGICAL HISTORY 1990 PROCEDURE: LAPAROSCOPY PROCEDURE NEC; COMMENT: ENDOMETRIOSIS COLONOSCOPY 08/25/04 PROCEDURE: HISTORICAL COLONOSCOPY; COMMENT: normal with normal colonic bx (to evaluate diarrhea). COLONOSCOPY 11/16/2009 PROCEDURE: HISTORICAL COLONOSCOPY; COMMENT: no polyps; minimal diverticulosis ESOPHAGOGASTRODUODENOSCOPY 04/23/20 PROCEDURE: ND ESOPHAGOGASTRODUODENOSCOPY TRANSORAL DIAGNOSTIC; COMMENT: normal; not on PPI meds. CHOLECYSTECTOMY PROCEDURE: LAPAROSCOPY, CHOLECYSTECTOMY; COMMENT: Herve; [facility] COLONOSCOPY 2013 PROCEDURE: HISTORICAL COLONOSCOPY; COMMENT: No polyps. CERVICAL BIOPSY W/ LOOP ELECTRODE EXCISION PROCEDURE: ND CONIZATION CERVIX W/WO D&C RPR ELTRD EXC [...]
--- OUTSIDE RECORDS SUMMARY | 2024-07-17 17:53 | XMS_ITS | Encounter Summary ---
[facility] Address [address] [place] [address] Care Team Providers Care Freight Car Repairer Name Role Phone Bryan Vasquez MD Primary Care Provider Unavail able Elina Mendez MD Primary Care Provider Ifrah jiang [facility], Pcp [facility] Encounter Details Date Type Department Care Team Description 11/02/2011 Controlled Substance Contract with Plan Medical Records [address] [place] [address] Abstract, Provider Social History Tobacco Use Types [...] on filedocumented in this encounter Care Teams Freight Car Repairer Relationship Specialty Start Date End Date Bryan Vasquez MD PCP - General 05/27/02 03/11/15 Elina Mendez MD PCP - General Internal Medicine 07/21/20 05/17/21 [facility], Pcp PCP - General Internal Medicine 05/18/21 documented as of this encounter
--- OUTSIDE RECORDS SUMMARY | 2024-07-17 17:53 | XMS_ITS | Encounter Summary ---
[facility] Address [address] [place] [address] Care Team Providers Care Director Learning Services Name Role Phone Bryan Vasquez MD Primary Care Provider Unavail able Elina Mendez MD Primary Care Provider Unavaila deidre [facility], Pcp Primary [facility] Encounter Details Date Type Department Care Team Description 1966 Snow Technician Report Medical Records [address] [place] [address] Epi Jasmine MD Social History Tobacco Use Types Packs/Day Years Used Date Smoking Tobacco: Never Assessed Sex Assigned at Date Recorded Not on file documented as of this encounter Plan of Treatment Not on file documented as of this encounter Visit Diagnoses Not on filedocumented in this encounter Care Teams Director Learning Services Relationship Specialty Start Date End Date Bryan Vasquez MD PCP - General 05/27/02 03/11/15 Elina Mendez MD PCP - General Internal Medicine 07/21/20 05/17/21 [facility], Pcp PCP - General Internal Medicine 05/18/21 documented as of this encounter
--- OUTSIDE RECORDS SUMMARY | 2024-07-17 17:53 | XMS_ITS | Encounter Summary ---
[facility] Address [address] [place] [address] Care Team Providers Care Growth Media Mixer Mushroom Name Role Phone Elina Mendez MD Primary Care Provider Ifrah jiang [facility], Pcp Primary Care Provider Nathen mueller Encounter Details Date Type Department Care Team Description 05/03/2015 Retail Loss Prevention Investigator Report Medical Records [address] [place] [address] Kelly Castillo NP Social History Tobacco Use [...] on filedocumented in this encounter Care Teams Growth Media Mixer Mushroom Relationship Specialty Start Date End Date Elina Mendez MD PCP - General Internal Medicine 07/21/20 05/17/21 Irene, Pcp PCP - General Internal Medicine 05/18/21 documented as of this encounter
--- OUTSIDE RECORDS SUMMARY | 2024-07-17 17:53 | XMS_ITS | Encounter Summary ---
[facility] Address [address] [place] [address] Care Team Providers Care Senior Producer Name Role Phone Bryan Vasquez MD Primary Care Provider Unavail able Elina Mendez MD Primary Care Provider Ifrah jiang [facility], Pcp Primary Care Provider Unavailyesenia e Encounter Details Date Type Department Care Team Description 02/19/2014 Hospital Medical Records [address] [place] [address] Micah Pulido MD Social History Tobacco Use [...] on filedocumented in this encounter Care Teams Senior Producer Relationship Specialty Start Date End Date Bryan Vasquez MD PCP - General 05/27/02 03/11/15 Elina Mendez MD PCP - General Internal Medicine 07/21/20 05/17/21 [facility], Pcp PCP - General Internal Medicine 05/18/21 documented as of this encounter
--- OUTSIDE RECORDS SUMMARY | 2024-07-17 17:53 | XMS_ITS | Encounter Summary ---
Author Organization [facility] Address [address] [place] [address] Care Team Providers Care Software Test Engineer Name Role Phone Elina Mendez MD Primary Care Provider Ifrah Bonilla, Pcp Primary Care Provider Nathen mueller Encounter Details Date Type Department Care Team Description 06/18/2018 Walk In Clinic Visit Medical Records [address] [place] [address] [place], [facility] [address] [place] [id number] Social History Tobacco Use Types Packs/Day Years [...] on filedocumented in this encounter Care Teams Software Test Engineer Relationship Specialty Start Date End Date Elina Mendez MD PCP - General Internal Medicine 07/21/20 05/17/21 Irene, Pcp PCP - General Internal Medicine 05/18/21 documented as of this encounter
--- OUTSIDE RECORDS SUMMARY | 2024-07-17 17:53 | XMS_ITS | Encounter Summary ---
[facility] Address [address] [place] [address] Care Team Providers Care Jointer Machine Operator Name Role Phone Elina Mendez MD [facility] Primary [facility] Provider [facility] Reason for Visit * Reason Comments E-prescribe Rx Request Encounter Details Date Type Department Care Team Description 07/15/2019 Refill Medicine/Pediatrics - [address] [phone] Karen Krueger PA-C E-prescribe Rx Request Social History Tobacco Use Types Packs/Day Years Used Date Smoking Tobacco: Never Smokeless Tobacco: Never Alcohol Use Standard Drinks/Week Comments Yes 0 (1 standard drink = 0.6 oz pur e alcohol) 6/ year Sex Assigned at Date Recorded Not on file documented as of this encounter Miscellaneous Notes * Telephone Encounter - Jane Short R.N. - 07/15/2019 1:36 PM EST Last refill:11/06/18 Order pended * Telephone Encounter - Frances Griffin - 07/15/2019 1:13 PM EST Patient would like script to be: E-PRESCRIBED/FAXED TO PHARMACY WHEN WAS THE PATIENT'S LAST APPOINTMENT IN ADULT MEDICINE? 04-24-19 WHEN WAS THE LAST TIME THE PATIENT SAW THEIR PCP? Same as above Does patient have an upcoming appointment? Yes 09-05-19 (THE MEDICATION REQUESTED IS ON THE MED [...] N/A Patients current insurance carrier is: Payor: [place] POS / Plan: FEP BASIC $30/$40 [place] / Product Type: PPO [id number] documented in this encounter Plan of Treatment Not on file documented as of this encounter Visit Diagnoses Not on filedocumented in this encounter Care Teams Jointer Machine Operator Relationship Specialty Start Date End Date Elina Mendez MD PCP - General Internal Medicine 07/21/20 [facility] 05/18/21 documented as of this encounter
--- OUTSIDE RECORDS SUMMARY | 2024-07-17 17:53 | XMS_ITS | Encounter Summary ---
[facility] Address [address] [place] [address] Care Team Providers Care Stripper And Opaquer Apprentice Name Role Phone Bryan Vasquez MD Primary Care Provider Unavail able Elina Mendez MD Primary Care Provider Ifrah jiang [facility], Pcp Primary Care Provider Unavailyesenia e Encounter Details Date Type Department Care Team Description 02/19/2014 Hospital Medical Records [address] [place] [address] Micah Pulido MD Social History Tobacco Use [...] on filedocumented in this encounter Care Teams Stripper And Opaquer Apprentice Relationship Specialty Start Date End Date Bryan Vasquez MD PCP - General 05/27/02 03/11/15 Elina Mendez MD PCP - General Internal Medicine 07/21/20 05/17/21 [facility], Pcp PCP - General Internal Medicine 05/18/21 documented as of this encounter
--- OUTSIDE RECORDS SUMMARY | 2024-07-17 17:53 | XMS_ITS | Encounter Summary ---
[facility] Address [address] [place] [address] Care Team Providers Care Traveling Plant Operator Name Role Phone Elina Mendez MD Primary Care Provider Ifrah jiang [facility], Pcp Primary Care Provider Nathen mueller Encounter Details Date Type Department Care Team Description 11/15/2017 Mold Yarn Supervisor Report Medical Records [address] [place] [address] Juan Manuel Brown MD Social History Tobacco [...] on filedocumented in this encounter Care Teams Traveling Plant Operator Relationship Specialty Start Date End Date Elina Mendez MD PCP - General Internal Medicine 07/21/20 05/17/21 [facility], Pcp PCP - General Internal Medicine 05/18/21 documented as of this encounter
--- OUTSIDE RECORDS SUMMARY | 2024-07-17 17:53 | XMS_ITS | Encounter Summary ---
[facility] Address [address] [place] [address] Care Team Providers Care Bench Molder Name Role Phone Elina Mendez MD Primary Care Provider Ifrah Bonilla, Pcp Primary Care Provider Nathen mueller Encounter Details Date Type Department Care Team Description 07/23/2020 [facility] Medical Records [address] [place] [address] Abstract, Provider Social History Tobacco Use Types [...] on filedocumented in this encounter Care Teams Bench Molder Relationship Specialty Start Date End Date Elina Mendez MD PCP - General Internal Medicine 07/21/20 05/17/21 Irene, Pcp PCP - General Internal Medicine 05/18/21 documented as of this encounter
--- OUTSIDE RECORDS SUMMARY | 2024-07-17 17:53 | XMS_ITS | Encounter Summary ---
[facility] Address [address] [place] [address] Care Team Providers Care Solar Electric/Photovoltaic Installer Name Role Phone Elina Mendez MD Primary Care Provider Ifrah [facility], Pcp Primary Care Provider Nathen mueller Encounter Details Date Type Department Care Team Description 04/14/2019 Orders Only Medicine/Pediatrics - [address] [address] Elina Mendez MD Preoperative examination; Screening for [...] EST [facility] Comment: If patient is -Bhutanese, multiply result by 1.21 Chronic Kidney Disease: [...] AM EST Elina Mendez MD LAB [facility] urturnTECH * (ABNORMAL) CBC (AUTO DIFF PLATELET) (04/24/2019 10:40 AM EST) Pathologist [facility] WHITE BLOOD COUNT 8.3 4.8 - 10.8 [...] anemia documented in this encounter Care Teams Solar Electric/Photovoltaic Installer Relationship Specialty Start Date End Date Elina Mendez MD PCP - General Internal Medicine 07/21/20 05/17/21 [facility], Pcp PCP - General Internal Medicine 05/18/21 documented as of this encounter
--- OUTSIDE RECORDS SUMMARY | 2024-07-17 17:53 | XMS_ITS | Encounter Summary ---
Author Organization [facility] Address [address] [place] [address] Care Team Providers Care Coffee Maker Servicer Name Role Phone Elina Mendez MD Primary Care Provider [facility]rah [facility], Pcp Primary Care Provider Nathen mueller Encounter Details Date Type Department Care Team Description 06/23/2020 [place] Medicine/Pediatrics [address] [phone] Elina Mendez MD Social History Tobacco Use [...] on filedocumented in this encounter Care Teams Coffee Maker Servicer Relationship Specialty Start Date End Date Elina Mendez MD PCP - General Internal Medicine 07/21/20 05/17/21 [facility], Pcp PCP - General Internal Medicine 05/18/21 documented as of this encounter
--- OUTSIDE RECORDS SUMMARY | 2024-07-17 17:53 | XMS_ITS | Encounter Summary ---
[facility] Address [address] [place] [address] Care Team Providers Care Dean Of Education Name Role Phone Bryan Vasquez MD Primary Care Provider Unavail able Elina Mendez MD Primary Care Provider Ifrah jiang [facility], Pcp Primary Care Provider Unavailyesenia e Encounter Details Date Type Department Care Team Description 04/16/2013 Peer Support Specialist Report Medical Records [address] [place] [address] Trevor Bundy MD Social History Tobacco Use [...] on filedocumented in this encounter Care Teams Dean Of Education Relationship Specialty Start Date End Date Bryan Vasquez MD PCP - General 05/27/02 03/11/15 Elina Mendez MD PCP - General Internal Medicine 07/21/20 05/17/21 [facility], Pcp PCP - General Internal Medicine 05/18/21 documented as of this encounter
--- OUTSIDE RECORDS SUMMARY | 2024-07-17 17:53 | XMS_ITS | Encounter Summary ---
[facility] Address [address] [place] [address] Care Team Providers Care Track Laying Supervisor Name Role Phone Elina Mendez MD Primary Care Provider Ifrah jiang [facility], Pcp Primary Care Provider Nathen mueller Encounter Details Date Type Department Care Team Description 07/11/2016 Manager Resort Report Medical Records [address] [place] [address] Kelly Castillo NP Social History Tobacco Use [...] on filedocumented in this encounter Care Teams Track Laying Supervisor Relationship Specialty Start Date End Date Elina Mendez MD PCP - General Internal Medicine 07/21/20 05/17/21 Irene, Pcp PCP - General Internal Medicine 05/18/21 documented as of this encounter
--- OUTSIDE RECORDS SUMMARY | 2024-07-17 17:53 | XMS_ITS | Encounter Summary ---
[facility] Address [address] [place] [address] Care Team Providers Care Living Skills Advisor Name Role Phone Elina Mendez MD Primary Care Provider Ifrah Bonilla, Pcp Primary Care Provider Nathen mueller Encounter Details Date Type Department Care Team Description 12/10/2018 [facility] Medical Records [address] [place] [address] Abstract, Provider Social History Tobacco Use Types [...] on filedocumented in this encounter Care Teams Living Skills Advisor Relationship Specialty Start Date End Date Elina Mendez MD PCP - General Internal Medicine 07/21/20 05/17/21 Irene, Pcp PCP - General Internal Medicine 05/18/21 documented as of this encounter
--- OUTSIDE RECORDS SUMMARY | 2024-07-17 17:53 | XMS_ITS | Encounter Summary ---
[facility] Address [address] [place] [address] Care Team Providers Care Glove Presser Name Role Phone Bryan Vasquez MD Primary Care Provider Unavail able Elina Mendez MD Primary Care Provider Ifrah jiang [facility], Pcp Primary Care Provider Unavailyesenia e Encounter Details Date Type Department Care Team Description 08/20/2014 Release of Information Medical Records [address] [place] [address] Abstract, Provider Social History Tobacco Use Types [...] on filedocumented in this encounter Care Teams Glove Presser Relationship Specialty Start Date End Date Bryan Vasquez MD PCP - General 05/27/02 03/11/15 Elina Mendez MD PCP - General Internal Medicine 07/21/20 05/17/21 [facility], Pcp PCP - General Internal Medicine 05/18/21 documented as of this encounter
--- OUTSIDE RECORDS SUMMARY | 2024-07-17 17:53 | XMS_ITS | Encounter Summary ---
Author Organization [facility] Address [address] [place] [address] Care Team Providers Care Postmaster Relief Name Role Phone Elina Mendez MD Primary Care Provider Ifrah [facility], Pcp Primary Care Provider Nathen mueller Encounter Details Date Type Department Care Team Description 11/22/2018 Pt. Non Urgent Medical Question Medicine/Pediatrics - [address] [address] Elina Mendez MD Social History Tobacco Use [...] 2:39 PM EDT Subject: Gabapentin Hi Dr O???Arellaon. The soliz for the extended release Gabapentin [...] on filedocumented in this encounter Care Teams Postmaster Relief Relationship Specialty Start Date End Date Elina Mendez MD PCP - General Internal Medicine 07/21/20 05/17/21 [facility], Pcp PCP - General Internal Medicine 05/18/21 documented as of this encounter
--- OUTSIDE RECORDS SUMMARY | 2024-07-17 17:53 | XMS_ITS | Encounter Summary ---
[facility] Address [address] [place] [address] Care Team Providers Care Ground Wirer Name Role Phone Bryan Vasquez MD Primary Care Provider Unavail able Elina Mendez MD Primary Care Provider Ifrah jiang [facility], Pcp Primary Care Provider Unavailyesenia e Encounter Details Date Type Department Care Team Description 11/10/2011 Hospital Medical Records [address] [place] [address] David Michael PA-C Social History Tobacco Use Types Packs/Day Years [...] on filedocumented in this encounter Care Teams Ground Wirer Relationship Specialty Start Date End Date Bryan Vasquez MD PCP - General 05/27/02 03/11/15 Elina Mendez MD PCP - General Internal Medicine 07/21/20 05/17/21 [facility], Pcp PCP - General Internal Medicine 05/18/21 documented as of this encounter
--- OUTSIDE RECORDS SUMMARY | 2024-07-17 17:53 | XMS_ITS | Encounter Summary ---
[facility] Address [address] [place] [address] Care Team Providers Care Financial Institution President Name Role Phone Elina Mendez MD Primary Care Provider Ifrah jiang [facility], Pcp Primary Care Provider Nathen mueller Encounter Details Date Type Department Care Team Description 11/15/2017 Car Dumper Operator Report Medical Records [address] [place] [address] Juan Manuel Brown MD Social History Tobacco [...] on filedocumented in this encounter Care Teams Financial Institution President Relationship Specialty Start Date End Date Elina Mendez MD PCP - General Internal Medicine 07/21/20 05/17/21 [facility], Pcp PCP - General Internal Medicine 05/18/21 documented as of this encounter
--- OUTSIDE RECORDS SUMMARY | 2024-07-17 17:53 | XMS_ITS | Encounter Summary ---
[facility] Organization [facility] Address [address] [place] [address] Care Team Providers Care Inspector Filter Tip Name Role Phone Elina Mendez MD Primary Care Provider Ifrah Bonilla, Pcp Primary Care Provider Nathen mueller Encounter Details Date Type Department Care Team Description 11/29/2018 PNO Controlled Substance Contract Medical Records [address] [place] [address] Abstract, Provider Social History Tobacco Use Types [...] on filedocumented in this encounter Care Teams Inspector Filter Tip Relationship Specialty Start Date End Date Elina Mendez MD PCP - General Internal Medicine 07/21/20 05/17/21 Irene, Pcp PCP - General Internal Medicine 05/18/21 documented as of this encounter
--- OUTSIDE RECORDS SUMMARY | 2024-07-17 17:53 | XMS_ITS | Encounter Summary ---
[facility] Address [address] [place] [address] Care Team Providers Care Flap Lining Binder Name Role Phone Elina Mendez MD Primary Care Provider Ifrah Bonilla, Pcp Primary Care Provider Nathen mueller Encounter Details Date Type Department Care Team Description 11/13/2016 Release of Information Medical Records [address] [place] [address] Abstract, Provider Social History Tobacco Use Types [...] on filedocumented in this encounter Care Teams Flap Lining Binder Relationship Specialty Start Date End Date Elina Mendez MD PCP - General Internal Medicine 07/21/20 05/17/21 Irene, Pcp PCP - General Internal Medicine 05/18/21 documented as of this encounter
--- OUTSIDE RECORDS SUMMARY | 2024-07-17 17:53 | XMS_ITS | Encounter Summary ---
[facility] Address [address] [place] [address] Care Team Providers Care Manager Freelance Name Role Phone Elina Mendez MD Primary Care Provider Ifrah Bonilla, Pcp Primary Care Provider Nathen mueller Encounter Details Date Type Department Care Team Description 03/27/2017 Release of Information Medical Records [address] [place] [address] Abstract, Provider Social History Tobacco Use Types [...] filedocumented in this encounter Care Teams Manager Freelance Relationship Specialty Start Date End Date Elina Mendez MD PCP - General Internal Medicine 07/21/20 05/17/21 Irene, Pcp PCP - General Internal Medicine 05/18/21 documented as of this encounter
--- OUTSIDE RECORDS SUMMARY | 2024-07-17 17:53 | XMS_ITS | Encounter Summary ---
Author Organization [facility] Address [address] [place] [address] Care Team Providers Care Ecosystem Ecology Professor Name Role Phone Bryan Vasquez MD Primary Care Provider Unavail Elina Segura MD Primary Care Provider Ifrah [facility], Pcp Primary Care Provider Unavailabl Reason for Visit * Reason Onset Date Comments Provider Call Back 11/10/2011 Encounter Details Date Type Department Care Team Description 11/10/2011 Telephone General Surgery [address] [place] [address] Chris Edgar MD [address] [place] [phone] Provider Call Back Social History Tobacco Use [...] Edgar [facility] * Telephone Encounter - Cecelia Mattson - 11/10/2011 3:58 PM EDT Patient was [...] on filedocumented in this encounter Care Teams Ecosystem Ecology Professor Relationship Specialty Start Date End Date Bryan Vasquez MD PCP - General 05/27/02 03/11/15 Elina Mendez MD PCP - General Internal Medicine 07/21/20 05/17/21 [facility], Pcp PCP - General Internal Medicine 05/18/21 documented as of this encounter
--- OUTSIDE RECORDS SUMMARY | 2024-07-17 17:53 | XMS_ITS | Encounter Summary ---
Author Organization [facility] Address [address] [place] [address] Care Team Providers Care Associate Financial Representative Name Role Phone Bryan Vasquez MD Primary Care Provider Elina Caceres MD Primary Care Provider Ifrah [facility], Pcp Primary Care Provider Unavailabl e Reason for Visit * Reason Onset Date Comments Work note 07/14/2014 Encounter Details Date Type Department Care Team Description 07/14/2014 Telephone Medicine/Pediatrics - [address] [phone] Bryan Vasquez MD Work note Social History [...] like note to be: Placed in patient tow picker PATIENT WOULD LIKE TO KNOW IF THIS IS GOING TO BE AVAILABLE FOR HER TO PRINT OFF MYCHART, PLEASE ADVISE documented in this encounter Plan of Treatment Not on file documented as of this encounter Visit Diagnoses Not on filedocumented in this encounter Care Teams Associate Financial Representative Relationship Specialty Start Date End Date Bryan Vasquez MD PCP - General 05/27/02 03/11/15 Elina Mendez MD PCP - General Internal Medicine 07/21/20 05/17/21 [facility], Pcp PCP - General Internal Medicine 05/18/21 documented as of this encounter
--- OUTSIDE RECORDS SUMMARY | 2024-07-17 17:53 | XMS_ITS | Encounter Summary ---
[facility] Address [address] [place] [address] Care Team Providers Care Toxics Program Officer Name Role Phone Bryan Vasquez MD Primary Care Provider Unavail able Elina Mendez MD Primary Care Provider Ifrah jiang [facility], Pcp [facility] Encounter Details Date Type Department Care Team Description 12/11/2013 Customer Account Administrator Report Medical Records [address] [place] [phone] Juan Manuel Brown MD Social History Tobacco [...] on filedocumented in this encounter Care Teams Toxics Program Officer Relationship Specialty Start Date End Date Bryan Vasquez MD PCP - General 05/27/02 03/11/15 Elina Mendez MD PCP - General Internal Medicine 07/21/20 05/17/21 [facility], Pcp PCP - General Internal Medicine 05/18/21 documented as of this encounter
--- OUTSIDE RECORDS SUMMARY | 2024-07-17 17:53 | XMS_ITS | Encounter Summary ---
[facility] Address [address] [place] [address] Care Team Providers Care Leather Coater Name Role Phone Elina Mendez MD Primary Care Provider Unavaila [facility], Pcp Primary Care Provider Unavailabl e Reason for Visit * Reason Onset Date Comments Faxed Refill 06/23/2020 Encounter Details Date Type Department Care Team Description 06/23/2020 Refill Medicine/Pediatrics - [address] [phone] Elina Mendez MD Faxed Refill Social History [...] BASIC $30/$40 [place] / Product Type: PPO [id number] documented in this encounter Plan of Treatment Not on file documented as of this encounter Visit Diagnoses Not on filedocumented in this encounter Care Teams Leather Coater Relationship Specialty Start Date End Date Elina Mendez MD PCP - General Internal Medicine 07/21/20 05/17/21 [facility] Pcp PCP - General Internal Medicine 05/18/21 documented as of this encounter
--- OUTSIDE RECORDS SUMMARY | 2024-07-17 17:53 | XMS_ITS | Encounter Summary ---
[facility] Address [address] [place] [address] Care Team Providers Care Credit Relationship Manager Name Role Phone Elina Mendez MD Primary Care Provider Ifrah Bonilla, Pcp Primary Care Provider Nathen mueller Encounter Details Date Type Department Care Team Description 11/13/2016 PNO Controlled Substance Contract Medical Records [address] [place] [address] Abstract, Provider Social History Tobacco Use Types [...] on filedocumented in this encounter Care Teams Credit Relationship Manager Relationship Specialty Start Date End Date Elina Mendez MD PCP - General Internal Medicine 07/21/20 05/17/21 Irene, Pcp PCP - General Internal Medicine 05/18/21 documented as of this encounter
--- OUTSIDE RECORDS SUMMARY | 2024-07-17 17:53 | XMS_ITS | Encounter Summary ---
[facility] Address [address] [place] [address] Care Team Providers Care Wood And Hardware Outfitter Name Role Phone Bryan Vasquez MD Primary Care Provider Unavail able Elina Mendez MD Primary Care Provider Ifrah jiang [facility], Pcp Primary Care Provider Unavailyesenia e Encounter Details Date Type Department Care Team Description 02/19/2014 Hospital Medical Records [address] [place] [address] Micah Pulido MD Social History Tobacco Use [...] on filedocumented in this encounter Care Teams Wood And Hardware Outfitter Relationship Specialty Start Date End Date Bryan Vasquez MD PCP - General 05/27/02 03/11/15 Elina Mendez MD PCP - General Internal Medicine 07/21/20 05/17/21 [facility], Pcp PCP - General Internal Medicine 05/18/21 documented as of this encounter
--- OUTSIDE RECORDS SUMMARY | 2024-07-17 17:53 | XMS_ITS | Encounter Summary ---
[facility] Address [address] [place] [address] Care Team Providers Care Nursery Hand Name Role Phone Elina Mendez MD Primary Care Provider Ifrah jiang [facility], Pcp Primary Care Provider Nathen mueller Encounter Details Date Type Department Care Team Description 03/24/2019 Varnish Maker Helper Report Medical Records [address] [place] [address] Juan Manuel Brown MD Social History Tobacco [...] on filedocumented in this encounter Care Teams Nursery Hand Relationship Specialty Start Date End Date Elina Mendez MD PCP - General Internal Medicine 07/21/20 05/17/21 [facility], Pcp PCP - General Internal Medicine 05/18/21 documented as of this encounter
--- OUTSIDE RECORDS SUMMARY | 2024-07-17 17:53 | XMS_ITS | Encounter Summary ---
[facility] Address [address] [place] [address] Care Team Providers Care Tuft Machine Operator Name Role Phone Bryan Vasquez MD Primary Care Provider Unavail able Elina Mendez MD Primary Care Provider Ifrah jiang [facility], Pcp Primary Care Provider Unavailabl e Encounter Details Date Type Department Care Team Description 09/19/2011 Deputy Treasurer Report Medical Records [address] [place] [address] Micah Pulido MD Social History Tobacco Use [...] on filedocumented in this encounter Care Teams Tuft Machine Operator Relationship Specialty Start Date End Date Bryan Vasquez MD PCP - General 05/27/02 03/11/15 Elina Mendez MD PCP - General Internal Medicine 07/21/20 05/17/21 [facility], Pcp PCP - General Internal Medicine 05/18/21 documented as of this encounter
--- OUTSIDE RECORDS SUMMARY | 2024-07-17 17:53 | XMS_ITS | Encounter Summary ---
[facility] Address [address] [place] [address] Care Team Providers Care Waterworks Pump Station Operator Name Role Phone Elina Mendez MD Primary Care Provider Ifrah jiang [facility], Pcp Primary Care Provider Nathen mueller Encounter Details Date Type Department Care Team Description 03/06/2018 Diver Helper Report Medical Records [address] [place] [address] Epi Jasmine MD Social History Tobacco Use [...] on filedocumented in this encounter Care Teams Waterworks Pump Station Operator Relationship Specialty Start Date End Date Elina Mendez MD PCP - General Internal Medicine 07/21/20 05/17/21 [facility], Pcp PCP - General Internal Medicine 05/18/21 documented as of this encounter
--- OUTSIDE RECORDS SUMMARY | 2024-07-17 17:53 | XMS_ITS | Encounter Summary ---
Author Organization [facility] Address [address] [place] [address] Care Team Providers Care Export Sales Manager Name Role Phone Elina Mendez MD Primary Care Provider [facility], Pcp [facility] Reason for Visit * Reason Comments E-prescribe Rx Request Encounter Details Date Type Department Care Team Description 01/14/2016 Refill Medicine/Pediatrics - [address] [phone] Elina Mendez MD E-prescribe Rx Request Social History Tobacco Use Types Packs/Day Years Used Date Smoking Tobacco: Never Smokeless Tobacco: Never Alcohol Use Standard Drinks/Week Comments Yes 0 (1 standard drink = 0.6 oz pur e alcohol) 6/ year Sex Assigned at Date Recorded Not on file documented as of this encounter Miscellaneous Notes * Telephone Encounter - Marcela Pretty - 01/14/2016 1:47 PM EDT Patient would like script to be: E-PRESCRIBED/FAXED TO PHARMACY WHEN WAS THE PATIENT'S LAST APPOINTMENT IN ADULT MEDICINE? 06/28/2015 WHEN WAS THE LAST TIME THE PATIENT SAW THEIR PCP? 06/25/2015 Does patient have an upcoming appointment? Yes 02/11/2016 (THE MEDICATION REQUESTED IS ON THE MED LIST ABOVE) All of the medications requested were on the CURRENT MEDS list Did you check the Pharmacy information above?: YES Patient wants: 30 -day supply Is this a mail order prescription request ? NO Patients current insurance carrier is: Payor: [employer]EMIN[employer]/MEENU POS / Plan: FEP BASIC $30/$40 [place] / Product Type: PPO [id number] documented in this encounter Plan of Treatment Not on file documented as of this encounter Visit Diagnoses Not on filedocumented in this encounter Care Teams Export Sales Manager Relationship Specialty Start Date End Date Elina Mendez MD PCP - General Internal Medicine 07/21/20 05/17/21 [facility], Pcp PCP - General Internal Medicine 05/18/21 documented as of this encounter
--- OUTSIDE RECORDS SUMMARY | 2024-07-17 17:53 | XMS_ITS | Encounter Summary ---
[facility] Address [address] [place] [address] Care Team Providers Care Reduction Furnace Operator Name Role Phone Bryan Vasquez MD Primary Care Provider Unavail able Elina Mendez MD Primary Care Provider Ifrah jiang [facility], Pcp [facility] Encounter Details Date Type Department Care Team Description 01/20/2014 Computer Networker Report Medical Records [address] [place] [address] Juan Manuel Brown MD Social History Tobacco [...] on filedocumented in this encounter Care Teams Reduction Furnace Operator Relationship Specialty Start Date End Date Bryan Vasquez MD PCP - General 05/27/02 03/11/15 Elina Mendez MD PCP - General Internal Medicine 07/21/20 05/17/21 [facility], Pcp PCP - General Internal Medicine 05/18/21 documented as of this encounter
--- OUTSIDE RECORDS SUMMARY | 2024-07-17 17:53 | XMS_ITS | Encounter Summary ---
[facility] Address [address] [place] [address] Care Team Providers Care Physician Interventional Cardiologist Name Role Phone Elina Mendez MD Primary Care Provider Ifrah jiang [facility], Pcp Primary Care Provider Nathen mueller Encounter Details Date Type Department Care Team Description 04/06/2015 Civil Celebrant Report Medical Records [address] [place] [address] Kelly Castillo NP Social History Tobacco Use [...] on filedocumented in this encounter Care Teams Physician Interventional Cardiologist Relationship Specialty Start Date End Date Elina Mendez MD PCP - General Internal Medicine 07/21/20 05/17/21 Irene, Pcp PCP - General Internal Medicine 05/18/21 documented as of this encounter
--- OUTSIDE RECORDS SUMMARY | 2024-07-17 17:53 | XMS_ITS | Encounter Summary ---
[facility] Address [address] [place] [address] Care Team Providers Care Barrel Straightener Name Role Phone Bryan Vasquez MD Primary Care Provider Unavail able Elina Mendez MD Primary Care Provider Ifrah jiang [facility], Pcp Primary Care Provider Unavailyesenia e Encounter Details Date Type Department Care Team Description 04/30/2014 [facility] Medical Records [address] [place] [address] Sonal Lee Social History Tobacco Use Types Packs/Day Years [...] on filedocumented in this encounter Care Teams Barrel Straightener Relationship Specialty Start Date End Date Bryan Vasquez MD PCP - General 05/27/02 03/11/15 Elina Mendez MD PCP - General Internal Medicine 07/21/20 05/17/21 [facility], Pcp PCP - General Internal Medicine 05/18/21 documented as of this encounter
== END 2024-07-15 00:01 | disposition home or self-care (01) ==
LOC: HO.LNP
PROVIDERS: Visit Provider Internal Medicine
DX: Z13.89 Encounter for screening for other disorder (principal)

== ENCOUNTER 2024-07-15 09:04 | Outpatient (AMB) | payer BC, SELFPAY ==
--- NOTE | 2024-07-15 09:12 | MHC.PC.OV ---
Vital Signs 07/15/24 09:17 Height 5 ft 6 in Weight 185 lb 2 oz BMI 29.9 BP 110/76 Blood Pressure Location Lt brachial Position Sitting Respiration 12 Pulse 102 H Pulse Source Pulse Oximeter Temp 98.1 F Temp Source Oral Pulse Oximetry (%) 96 Oxygen Delivery Method Room Air Intake Visit Reasons: sick for 10 days Intake Note: Blisters in groin. Pain in hip. Congested, coughing. Went to [facility] last and was told it was viral. Went to Urgent care Sunday and was given doxycycline. Couples Therapist Required: No Allergies erythromycin base Allergy (Severe, Verified 07/15/24 09:14) Abdominal Pain amoxicillin Allergy (Intermediate, Verified 07/15/24 09:14) Rash codeine Allergy (Unknown, Verified 07/15/24 09:14) Back Pain metronidazole [From Flagyl] Allergy (Unknown, Verified 07/15/24 09:14) Unknown povidone-iodine [From Betadine] Allergy (Unknown, Verified 07/15/24 09:14) Rash sulfamethoxazole [From Bactrim] Allergy (Unknown, Verified 07/15/24 09:14) Rash trimethoprim [From Bactrim] Allergy (Unknown, Verified 07/15/24 09:14) Rash cephalexin [From Keflex] Allergy (Verified 07/15/24 09:14) throat closing shellfish Allergy (Unknown, Uncoded 07/15/24 09:14) skin reaction Medication List - Last Reconciled 07/21/24 by Elina Hong MD albuterol sulfate 90 mcg/actuation 2 puffs inhalation Q6H PRN albuterol sulfate 2.5 mg (3 mL) inhalation Q4-6H PRN amitriptyline 50 mg PO BEDTIME diltiazem HCl ER (DILT-XR) 180 mg PO DAILY doxycycline hyclate mg PO epinephrine (EpiPen 2-Luis) 0.3 mg (0.3 mL) IM Q4H PRN ezetimibe mg PO DAILY fluticasone propionate 220 mcg/actuation 2 puffs inhalation BID gabapentin 300 mg PO TID 90 days levothyroxine 50 mcg PO DAILY lifitegrast 5% (Xiidra) 1 drp ophthalmic (eye) BID montelukast 10 mg PO DAILY omeprazole 20 mg PO DAILY orphenadrine citrate ER 100 mg PO BID 90 days peg 3350-electrolytes 236-22.74-6.74 -5.86 gram (Golytely) 240 mL PO Q10M prednisone 40 mg (2 x 20 mg) PO DAILY sumatriptan succinate take 1 tab at onset of headache; if no relief may repeat 1 tab after at least 2 hrs; max = 4 tabs/24 hr PO tramadol 50 - 100 mg (1 - 2 x 50 mg) PO Q8H PRN valacyclovir (Valtrex) 1,000 mg PO BID zolpidem 10 mg PO BEDTIME PRN 30 days Zyloprim (allopurinol) 100 mg PO DAILY NS Tobacco use date assessed: 09/06/23 Dental Screening Dental Screen Date: 09/06/23 HPI HPI Comments History of Present Illness Details The patient is a 59 year old female with a past medical history of asthma, hyplipidemia, diveriticulitis, migraine, insomnia, COVID x 2 presenting for follow up Respiratory/sinus/flu like symptoms for the past 2 weeks. Some improvement in cough, headache. Had walk in-appeared viral syndrome though rsv/flu/covid negative. Was placed on prednisone 07/08. She says that she felt the worse last week than she has felt with any illness for a long time-fatigue, aches, pain, fever etc. She developed pain in the hip then a vesicular rash in the deep right groin just lateral to the perineum. The vesicles have dried out. No history of hsv. She feels burning/sandpaper pain in the area. She was evaluated in [facility] ER on 01/07/24. Presented with lower extremity swelling, chest pain and shortness of breath. Had flown home from [place] 2 days prior. Patient noted to have b/l non pitting edema. Bilateral LE u/s negative for DVT. ACS work up negative. CXR, bnp normal. Her EKG did show new TWI in anterior leads changed from earlier this summer. She has been experiencing more externional dyspnea and intermittent chest pressure. She no longer has the leg swelling and shortness of breath which prompted her ER visit Heme/Onc: abnormal mammogram and u/s. MRI without evidence of malignancy. Surgery consult was waiting on MRI. This shows an indeterminate but not entirely suspicious appearing right breast mass. These were performed in response for abnormal u/s six months ago prior to which she reports normal mammograms. Gets these done at [facility]. She has been having tender axillary lymph nodes of the left breast. She has a family history of breast cancer. The original recommendation was for repeat testing in six months Asthma: Current exacerbation. Slow recovery from COVID May 2020. COVID 06/2023. On flovent, albuterol prn CV: Hyperlipidemia. Following with cardiology. Tried multiple statins-lipitor, simvastatin, pravastatin. All led to increased myalgia. Recently tried pravastatin again with onset of significant muscle pain. Insurance has not covered PCSK9 inhibitors Hypothyroid: Stable on levothyroxine 50mcg daily. Thyroid u/s reassuring 2023. History of diverticulitis s/p colonic resection 2018 without recent issue Fibromyalgia: stopped statin with some relief last year. Continues gabapentin, elavil Insomnia: Well controlled on ambien Mammo 09/2023 ROS see HPI PHYSICAL EXAM: GENERAL: Alert and oriented x 3. NAD EYES: EOMI. Anicteric. HENT: Moist mucous membranes. maxillary sinus tenderness, boggy nasal mucosa LUNGS: Decreasing airflow, scant wheezing CARDIOVASCULAR: Regular rate and rhythm. No murmur. No JVD. ABDOMEN: Soft, non-tender +bs EXTREMITIES: Bilateral 1st metatarsal swelling, no significant wamth, mild redness SKIN: Perineal/right groin clustered open vesicles without visible exudate NEUROLOGIC: No focal neurological deficits. CN II-XII grossly intact PSYCHIATRIC: Cooperative. Appropriate mood and affect [facility] Surgical History History of esophagogastroduodenoscopy (EGD) Hx of resection of large bowel Hx of colonoscopy Family History Mother Lung cancer Colon cancer Father Stomach cancer Paternal Aunt Breast cancer Brother Autoimmune disorder Social History Housing: House Alcohol intake: current Patient Tobacco Use Status: Never used Tobacco e-Cigarette/Vaping Use: Never Used Second Hand Smoke Exposure: Yes (past) service: No Current occupational status: employed Current occupational exposures/hazards: No (past) Cognitive needs: No Hearing needs: No Vision needs: No Questionnaire PHQ-9 Over the last 2 weeks, how often have you been bothered by any of the following problems? 1. Little interest or pleasure in doing things: not at all 2. Feeling down, depressed, or hopeless: not at all 3. Trouble falling or staying asleep, or sleeping too much: not at all 4. Feeling tired or having little energy: nearly every day 5. Poor appetite or overeating: not at all 6. Feeling bad about yourself - or that you are a failure or have let yourself or your family down: not at all 7. Trouble concentrating on things, such as reading the newspaper or watching television: not at all 8. Moving or speaking so slowly that other people could have noticed. Or the opposite - being so fidgety or restless that you have been moving around a lot more than usual: not at all 9. Thoughts that you would be better off or of hurting yourself in some way: not at all Total score: 3 Depression Screening Interpretation: Positive Depression Screening Done: Yes 30763 - PHQ-9 Billing: Yes Source: Developed by Drs. Javi Whatley, Yaneth Salomon, Speedy Ward and colleagues, with an educational selvin from [employer]. Thrive Questionnaire Date Thrive assessed: 07/15/24 I am a: Patient What is your living situation today?: I have a steady place to live Within the past 12 months, did the food you bought not last and you didn't have the money to get more?: Never true Within the past 12 months, did you worry whether your food would run out before you got money to buy more?: Never true Do you have trouble paying for medicines?: No Do you have trouble getting transportation to medical appointments?: No Do you have trouble paying your heating and electricity bill?: No Do you have trouble taking care of your child, family member or friend?: No Do you have trouble with day-to-day activities such as bathing, preparing meals, shopping, managing finances, etc.?: No Are you currently unemployed and looking for a job?: No Are you interested in more education?: No Please select the resources that you would like help with: None Currently or been in a relationship where the following occur: No concerns reported THRIVE Score: 0 AUDIT C Alcohol Use Questionnaire (AUDIT-C) 1. How often do you have a drink containing alcohol?: Monthly or less 2. How many drinks containing alcohol do you have on a typical day when you are drinking?: 1 or 2 3. How often do you have six or more drinks on one occasion?: Never Total Score: 1 SUMMER-7 AMB Questionnaire SUMMER-7 Date SUMMER - 7 assessed: 07/15/24 Feeling nervous, anxious, or on edge: 0 = Not at all Not being able to stop or control worryin = Not at all Worrying too much about different things: 0 = Not at all Trouble relaxin = Not at all Being so restless that it is hard to sit still: 0 = Not at all Becoming easily annoyed or irritable: 0 = Not at all Feeling afraid as if something awful might happen: 0 = Not at all Total SUMMER-7 score (0-4 normal; 5-9 mild; 10-14 moderate; 15-21 severe): 0 Source: Developed by Drs. Javi Whatley, Yaneth Salomon, Speedy Ward and colleagues, with an educational selvin from [employer]. SUMMER-7 Assessment Billing SUMMER-7 Assessment Tool: SUMMER-7 Assessment 18959 Physical exam (Primary Care) Vital Signs: Last Vital Signs Temp 98.1 F 07/15/24 09:17 Pulse 102 H 07/15/24 09:17 Resp 12 07/15/24 09:17 BP 110/76 07/15/24 09:17 Pulse Ox 96 07/15/24 09:17 Oxygen Delivery Method Room Air 07/15/24 09:17 BMI result Body Mass Index 29.9 Tobacco/Smoking Status: Tobacco use Status Tobacco use date assessed 09/06/23 07/15/24 09:23 Patient Tobacco Use Status Never used Tobacco 07/15/24 09:24 e-Cigarette/Vaping Use Never Used 07/15/24 09:24 PHQ-9: PHQ-9 Score PHQ-9: Total score 3 07/20/24 20:59 Depression Screening Interpretation: Positive Thrive Assessment: Date of Thrive Assessment Date Thrive assessed 07/15/24 07/15/24 09:24 Currently or been in a relationship where the following occur: No concerns reported Coding Level of Care Code Est Pt Level 4 (33722) Complex EM visit Add On G2211 Diagnoses Flu-like symptoms R68.89 Rash R21 Additional Codes SUMMER-7 Assessment Billing - SUMMER-7 Assessment Tool: SUMMER-7 Assessment 58391 ([id number]) PHQ-9 - 35442 - PHQ-9 Billing: Yes ([id number]) Assessment & Plan Assessment & Plan (1) Flu-like symptoms: Code(s): R68.89 - Other general symptoms and signs Category: Medical Plan: Extended viral swab sent Start doxycycline (2) Rash: Code(s): R21 - Rash and other nonspecific skin eruption Category: Medical Plan: Suspect shingles though cannot rule out HSV v other viral rash. Does not appear consistent with folliculitis etc Start valtrex Orders: Orders Viral Culture 07/18/24 L02.215 - Cutaneous abscess of perineum, R21 - Rash and other nonspecific skin eruption Resp Pathogen Panel - [facility] [place] 07/15/24 J98.8 - Other specified respiratory disorders Medications: New valacyclovir (Valtrex) 1,000 mg PO BID 14 tabs 0RF prednisone 40 mg (2 x 20 mg) PO DAILY 10 tabs 0RF
[2024-07-15 09:17] VITALS: BP 110/76; PULSE 102; RESP 12; TEMP 36.7; O2SAT 96; BMI 29.9
--- OUTSIDE RECORDS SUMMARY | 2024-07-15 09:58 | XMS_ITS | Encounter Summary ---
[facility] Address [address] [place] [address] Care Team Providers Care Container Maker Name Role Phone Elina Mendez MD Primary Care Provider Ifrah Bonilla, Pcp Primary Care Provider Nathen mueller Encounter Details Date Type Department Care Team Description 11/13/2016 PNO Controlled Substance Contract Medical Records [address] [place] [address] Abstract, Provider Social History Tobacco Use Types Packs/Day Years Used Date Smoking Tobacco: Never Smokeless Tobacco: Never Alcohol Use Standard Drinks/Week Comments Yes 0 (1 standard drink = 0.6 oz pur e alcohol) 6/ year Sex Assigned at Date Recorded Not on file documented as of this encounter Plan of Treatment Not on file documented as of this encounter Visit Diagnoses Not on filedocumented in this encounter Care Teams Container Maker Relationship Specialty Start Date End Date Elina Mendez MD PCP - General Internal Medicine 07/21/20 05/17/21 Irene, Pcp PCP - General Internal Medicine 05/18/21 documented as of this encounter
--- OUTSIDE RECORDS SUMMARY | 2024-07-15 09:58 | XMS_ITS | Encounter Summary ---
[facility] Address [address] [place] [address] Care Team Providers Care Salesperson Flowers Name Role Phone Elina Mendez MD Primary Care Provider Ifrah jiang [facility], Pcp Primary Care Provider Nathen mueller Encounter Details Date Type Department Care Team Description 07/10/2017 Flatwork Supervisor Report Medical Records [address] [place] [address] Trevor Bundy MD Social History Tobacco Use Types Packs/Day Years [...] on filedocumented in this encounter Care Teams Salesperson Flowers Relationship Specialty Start Date End Date Elina Mendez MD PCP - General Internal Medicine 07/21/20 05/17/21 [facility], Pcp PCP - General Internal Medicine 05/18/21 documented as of this encounter
--- OUTSIDE RECORDS SUMMARY | 2024-07-15 09:58 | XMS_ITS | Encounter Summary ---
Author Organization [facility] Address [address] [place] [address] Care Team Providers Care Piping Blocker Name Role Phone Bryan Vasquez MD Primary Care Provider Unavail able Elina Mendez MD Primary Care Provider Ifrah jiang [facility], Pcp Primary Care Provider Unavailabl e Encounter Details Date Type Department Care Team Description 07/27/2014 Transfer Records Medical Records [address] [place] [id number] Abstract, Provider Social History Tobacco Use Types [...] on filedocumented in this encounter Care Teams Piping Blocker Relationship Specialty Start Date End Date Bryan Vasquez MD PCP - General 05/27/02 03/11/15 Elina Mendez MD PCP - General Internal Medicine 07/21/20 05/17/21 [facility], Pcp PCP - General Internal Medicine 05/18/21 documented as of this encounter
--- OUTSIDE RECORDS SUMMARY | 2024-07-15 09:58 | XMS_ITS | Encounter Summary ---
[facility] Address [address] [place] [address] Care Team Providers Care Delivery Specialist Name Role Phone Bryan Vasquez MD Primary Care Provider Unavail able Elina Mendez MD Primary Care Provider Ifrah jiang [facility], Pcp Primary Care Provider Unavailyesenia e Encounter Details Date Type Department Care Team Description 03/07/2013 [facility] [place] Report Medical Records [address] [place] [address] Mark Olivas Social History Tobacco Use Types Packs/Day Years [...] on filedocumented in this encounter Care Teams Delivery Specialist Relationship Specialty Start Date End Date Bryan Vasquez MD PCP - General 05/27/02 03/11/15 Elina Mendez MD PCP - General Internal Medicine 07/21/20 05/17/21 [facility], Pcp PCP - General Internal Medicine 05/18/21 documented as of this encounter
--- OUTSIDE RECORDS SUMMARY | 2024-07-15 09:58 | XMS_ITS | Encounter Summary ---
[facility] Address [address] [place] [address] Care Team Providers Care Manager Social Services Name Role Phone Bryan Vasquez MD Primary Care Provider Unavail able Elina Mendez MD Primary Care Provider Ifrah jiang [facility], Pcp Primary Care Provider Unavailyesenia e Encounter Details Date Type Department Care Team Description 02/19/2014 Hospital Medical Records [address] [place] [address] Micah Pulido MD Social History Tobacco Use Types Packs/Day [...] on filedocumented in this encounter Care Teams Manager Social Services Relationship Specialty Start Date End Date Bryan Vasquez MD PCP - General 05/27/02 03/11/15 Elina Mendez MD PCP - General Internal Medicine 07/21/20 05/17/21 [facility], Pcp PCP - General Internal Medicine 05/18/21 documented as of this encounter
--- OUTSIDE RECORDS SUMMARY | 2024-07-15 09:58 | XMS_ITS | Encounter Summary ---
[facility] Address [address] [place] [address] Care Team Providers Care Seeing Eye Dog Teacher Name Role Phone Bryan Vasquez MD Primary Care Provider Unavail able Elina Mendez MD Primary Care Provider Unavailmisty jiang [facility], Pcp Primary Care Provider Unavailabl e Encounter Details Date Type Department Care Team Description 02/06/2013 Extraction Supervisor Report Medical Records [address] [place] [address] Social History Tobacco Use Types Packs/Day Years [...] on filedocumented in this encounter Care Teams Seeing Eye Dog Teacher Relationship Specialty Start Date End Date Bryan Vasquez MD PCP - General 05/27/02 03/11/15 Elina Mendez MD PCP - General Internal Medicine 07/21/20 05/17/21 [facility], Pcp PCP - General Internal Medicine 05/18/21 documented as of this encounter
--- OUTSIDE RECORDS SUMMARY | 2024-07-15 09:58 | XMS_ITS | Encounter Summary ---
Author Organization [facility] Address [address] [place] [address] Care Team Providers Care Community Engagement Representative Name Role Phone Bryan Vasquez MD Primary Care Provider Unavail able Elina Mendez MD Primary Care Provider Ifrah jiang [facility], Pcp Primary Care Provider Unavailabl e Encounter Details Date Type Department Care Team Description 09/24/2011 Release of Information Medical Records [address] [place] [address] Abstract, Provider Social History Tobacco Use Types Packs/Day Years Used Date Smoking Tobacco: Never Alcohol Use Standard Drinks/Week Comments Yes 0 (1 standard drink = 0.6 oz pur e alcohol) 3/ year Sex Assigned at Date Recorded Not on file documented as of this encounter Plan of Treatment Not on file documented as of this encounter Visit Diagnoses Not on filedocumented in this encounter Care Teams Community Engagement Representative Relationship Specialty Start Date End Date Bryan Vasquez MD PCP - General 05/27/02 03/11/15 Elina Mendez MD PCP - General Internal Medicine 07/21/20 05/17/21 [facility], Pcp PCP - General Internal Medicine 05/18/21 documented as of this encounter
--- OUTSIDE RECORDS SUMMARY | 2024-07-15 09:58 | XMS_ITS | Encounter Summary ---
[facility] Organization [facility] Address [address] [place] [address] Care Team Providers Care Professional Athletes Coach Name Role Phone Bryan Vasquez MD Primary Care Provider Unavail able Elina Mendez MD Primary Care Provider Ifrah jiang [facility], Pcp [facility] Encounter Details Date Type Department Care Team Description 09/23/2014 Barrel Polisher Report Medical Records [address] [place] [address] Juan Manuel Brown MD Social History Tobacco Use Types Packs/Day [...] on filedocumented in this encounter Care Teams Professional Athletes Coach Relationship Specialty Start Date End Date Bryan Vasquez MD PCP - General 05/27/02 03/11/15 Elina Mendez MD PCP - General Internal Medicine 07/21/20 05/17/21 [facility], Pcp PCP - General Internal Medicine 05/18/21 documented as of this encounter
--- OUTSIDE RECORDS SUMMARY | 2024-07-15 09:58 | XMS_ITS | Clinical Summary ---
Author Organization [facility] Address [address] [place] [address] Care Team Providers Care Textile Science Technician Name Role Phone Unavailable Primary Care Provider Unavailabl e Surgical History Surgery Date Site/Laterality Comments OTHER SURGICAL HISTORY 1992 PROCEDURE: PA RADIAL KERATOTOMY; COMMENT: x 6 HERNIA REPAIR 1990 PROCEDURE: REPAIR INGUINAL HERNIA; COMMENT: RT OTHER SURGICAL HISTORY 1990 PROCEDURE: LAPAROSCOPY PROCEDURE NEC; COMMENT: ENDOMETRIOSIS COLONOSCOPY 08/25/04 PROCEDURE: HISTORICAL COLONOSCOPY; COMMENT: normal with normal colonic bx (to evaluate diarrhea). COLONOSCOPY 11/16/2009 PROCEDURE: HISTORICAL COLONOSCOPY; COMMENT: no polyps; minimal diverticulosis ESOPHAGOGASTRODUODENOSCOPY 04/23/20 PROCEDURE: PA ESOPHAGOGASTRODUODENOSCOPY TRANSORAL DIAGNOSTIC; COMMENT: normal; not on PPI meds. CHOLECYSTECTOMY PROCEDURE: LAPAROSCOPY, CHOLECYSTECTOMY; COMMENT: Herve; [facility] COLONOSCOPY 2013 PROCEDURE: HISTORICAL COLONOSCOPY; COMMENT: No polyps. CERVICAL BIOPSY W/ LOOP ELECTRODE EXCISION PROCEDURE: PA CONIZATION CERVIX W/WO D&C RPR ELTRD EXC [...]
--- OUTSIDE RECORDS SUMMARY | 2024-07-15 09:58 | XMS_ITS | Encounter Summary ---
[facility] Address [address] [place] [address] Care Team Providers Care Commercial Energy Rater Name Role Phone Elina Mendez MD Primary Care Provider Ifrah jiang [facility], Pcp Primary Care Provider Nathen mueller Encounter Details Date Type Department Care Team Description 07/11/2016 Aircraft Systems Repairer Report Medical Records [address] [place] [address] Kelly Castillo NP Social History Tobacco Use Types Packs/Day Years [...] on filedocumented in this encounter Care Teams Commercial Energy Rater Relationship Specialty Start Date End Date Elina Mendez MD PCP - General Internal Medicine 07/21/20 05/17/21 Irene, Pcp PCP - General Internal Medicine 05/18/21 documented as of this encounter
--- OUTSIDE RECORDS SUMMARY | 2024-07-15 09:58 | XMS_ITS | Encounter Summary ---
[facility] Address [address] [place] [address] Care Team Providers Care Information Security Consultant Name Role Phone Bryan Vasquez MD Primary Care Provider Unavail able Elina Mendez MD Primary Care Provider Ifrah jiang [facility], Pcp Primary Care Provider Unavailyesenia e Encounter Details Date Type Department Care Team Description 08/20/2014 Release of Information Medical Records [address] [place] [address] Abstract, Provider Social History Tobacco Use Types [...] on filedocumented in this encounter Care Teams Information Security Consultant Relationship Specialty Start Date End Date Bryan Vasquez MD PCP - General 05/27/02 03/11/15 Elina Mendez MD PCP - General Internal Medicine 07/21/20 05/17/21 [facility], Pcp PCP - General Internal Medicine 05/18/21 documented as of this encounter
--- OUTSIDE RECORDS SUMMARY | 2024-07-15 09:58 | XMS_ITS | Encounter Summary ---
[facility] Address [address] [place] [address] Care Team Providers Care Lifts And Cranes Inspector Name Role Phone Elina Mendez MD Primary Care Provider Ifrah Bonilla, Pcp Primary Care Provider Nathen mueller Encounter Details Date Type Department Care Team Description 12/10/2018 [facility] Medical Records [address] [place] [address] Abstract, Provider Social History Tobacco Use Types [...] on filedocumented in this encounter Care Teams Lifts And Cranes Inspector Relationship Specialty Start Date End Date Elina Mendez MD PCP - General Internal Medicine 07/21/20 05/17/21 [facility], Pcp PCP - General Internal Medicine 05/18/21 documented as of this encounter
--- OUTSIDE RECORDS SUMMARY | 2024-07-15 09:58 | XMS_ITS | Encounter Summary ---
Author Organization [facility] Address [address] [place] [address] Care Team Providers Care Site Director Name Role Phone Elina Mendez MD Primary Care Provider Ifrah jiang [facility], Pcp Primary Care Provider Nathen mueller Encounter Details Date Type Department Care Team Description 03/15/2017 Manager Of Pharmacy Report Medical Records [address] [place] [address] Trevor Bundy MD Social History Tobacco Use [...] on filedocumented in this encounter Care Teams Site Director Relationship Specialty Start Date End Date Elina Mendez MD PCP - General Internal Medicine 07/21/20 05/17/21 [facility], Pcp PCP - General Internal Medicine 05/18/21 documented as of this encounter
--- OUTSIDE RECORDS SUMMARY | 2024-07-15 09:58 | XMS_ITS | Encounter Summary ---
[facility] Address [address] [place] [address] Care Team Providers Care Cone Picker Name Role Phone Elina Mendez MD Primary Care Provider Ifrah jiang [facility], Pcp Primary Care Provider Nathen mueller Encounter Details Date Type Department Care Team Description 08/16/2017 SCAN Medical Records [address] [place] [id number] Abstract, Provider Social History Tobacco Use Types [...] on filedocumented in this encounter Care Teams Cone Picker Relationship Specialty Start Date End Date Elina Mendez MD PCP - General Internal Medicine 07/21/20 05/17/21 [facility], Pcp PCP - General Internal Medicine 05/18/21 documented as of this encounter
--- OUTSIDE RECORDS SUMMARY | 2024-07-15 09:58 | XMS_ITS | Encounter Summary ---
Author Organization [facility] Address [address] [place] [address] Care Team Providers Care Director Data Analytics Name Role Phone Bryan Vasquez MD Primary Care Provider Unavail Elina Segura MD Primary Care Provider Ifrah [facility], Pcp Primary Care Provider Unavailabl Reason for Visit * Reason Onset Date Comments Provider Call Back 11/10/2011 Encounter Details Date Type Department Care Team Description 11/10/2011 Telephone General Surgery [address] [place] [address] Chris Edgar MD [address] [place] [address] Provider Call Back Social History Tobacco Use Types Packs/Day Years Used Date Smoking Tobacco: Never Smokeless Tobacco: Never Alcohol Use Standard Drinks/Week Comments Yes 0 (1 standard drink = 0.6 oz pur e alcohol) 3/ year Sex Assigned at Date Recorded Not on file documented as of this encounter Miscellaneous Notes * Telephone Encounter - Nila Elizabeth L.P.N. - 11/10/2011 4:33 PM EDT Pt called she is feeling very ill Dr. Edgar has arranged for [facility] * Telephone Encounter - Cecelia aMttson - 11/10/2011 3:58 PM EDT Patient was seen this afternoon and was told that her surgery is going to be booked olesya... She is calling because she hasnt heard anything yet. I explained that the dr and the nurses were with patients still and that she had not been forgotten... She still asked that i send a message through. Please advise documented in this encounter Plan of Treatment Not on file documented as of this encounter Visit Diagnoses Not on filedocumented in this encounter Care Teams Director Data Analytics Relationship Specialty Start Date End Date Bryan Vasquez MD PCP - General 05/27/02 03/11/15 Elina Mendez MD PCP - General Internal Medicine 07/21/20 05/17/21 [facility], Pcp PCP - General Internal Medicine 05/18/21 documented as of this encounter
--- OUTSIDE RECORDS SUMMARY | 2024-07-15 09:58 | XMS_ITS | Encounter Summary ---
[facility] Organization [facility] Address [address] [place] [address] Care Team Providers Care Client Solutions Specialist Name Role Phone Bryan Vasquez MD Primary Care Provider Unavail able Elina Mendez MD Primary Care Provider Ifrah jiang [facility], Pcp [facility] Encounter Details Date Type Department Care Team Description 11/02/2011 Controlled Substance Contract with Plan Medical Records [address] [place] [id number] Abstract, Provider Social History Tobacco Use Types [...] on filedocumented in this encounter Care Teams Client Solutions Specialist Relationship Specialty Start Date End Date Bryan Vasquez MD PCP - General 05/27/02 03/11/15 Elina Mendez MD PCP - General Internal Medicine 07/21/20 05/17/21 [facility], Pcp PCP - General Internal Medicine 05/18/21 documented as of this encounter
--- OUTSIDE RECORDS SUMMARY | 2024-07-15 09:58 | XMS_ITS | Encounter Summary ---
[facility] Organization [facility] Address [address] [place] [address] Care Team Providers Care Braider Setter Name Role Phone Elina Mendez MD Primary Care Provider Ifrah jiang [facility], Pcp Primary Care Provider Nathen mueller Encounter Details Date Type Department Care Team Description 03/24/2019 Electromechanical Equipment Tester Report Medical Records [address] [place] [address] Juan Manuel Brown MD Social History Tobacco [...] on filedocumented in this encounter Care Teams Braider Setter Relationship Specialty Start Date End Date Elina Mendez MD PCP - General Internal Medicine 07/21/20 05/17/21 [facility], Pcp PCP - General Internal Medicine 05/18/21 documented as of this encounter
--- OUTSIDE RECORDS SUMMARY | 2024-07-15 09:58 | XMS_ITS | Encounter Summary ---
Author Organization [facility] Address [address] [place] [address] Care Team Providers Care Batter Depositor Name Role Phone Elina Mendez MD Primary Care Provider Ifrah [facility], Pcp Primary Care Provider Nathen mueller Encounter Details Date Type Department Care Team Description 06/18/2018 Walk In Clinic Visit Medical Records [address] [place] [address] [place] [address] [place] [phone] Social History Tobacco Use Types Packs/Day Years [...] on filedocumented in this encounter Care Teams Batter Depositor Relationship Specialty Start Date End Date Elina Mendez MD PCP - General Internal Medicine 07/21/20 05/17/21 [facility], Pcp PCP - General Internal Medicine 05/18/21 documented as of this encounter
--- OUTSIDE RECORDS SUMMARY | 2024-07-15 09:58 | XMS_ITS | Encounter Summary ---
Author Organization [facility] Address [address] [place] [address] Care Team Providers Care Cyber Security Engineer Name Role Phone Elina Mendez MD Primary Care Provider [facility]rah [facility], Pcp Primary Care Provider Nathen mueller Encounter Details Date Type Department Care Team Description 06/23/2020 [place] Medicine/Pediatrics [address] [phone] Elina Mendez MD Social History Tobacco Use Types Packs/Day Years Used Date Smoking Tobacco: Never Smokeless Tobacco: Never Alcohol Use Standard Drinks/Week Comments Yes 0 (1 standard drink = 0.6 oz pur e alcohol) 6/ year Sex Assigned at Date Recorded Not on file COVID-19 Exposure Response Date Recorded In the last month, have you been in contact with someone who was confirmed or suspected to have Coronavirus / COVID-19? No / Unsure 06/03/2020 1:37 PM EST documented as of this encounter Plan of Treatment Not on file documented as of this encounter Visit Diagnoses Not on filedocumented in this encounter Care Teams Cyber Security Engineer Relationship Specialty Start Date End Date Elina Mendez MD PCP - General Internal Medicine 07/21/20 05/17/21 [facility], Pcp PCP - General Internal Medicine 05/18/21 documented as of this encounter
--- OUTSIDE RECORDS SUMMARY | 2024-07-15 09:58 | XMS_ITS | Encounter Summary ---
[facility] Address [address] [place] [address] Care Team Providers Care Computer Drafter Name Role Phone Elina Mendez MD Primary Care Provider Ifrah jiang [facility], Pcp Primary Care Provider Nathen mueller Encounter Details Date Type Department Care Team Description 11/15/2017 Math Specialist Report Medical Records [address] [place] [address] Juan Manuel Brown MD Social History Tobacco [...] on filedocumented in this encounter Care Teams Computer Drafter Relationship Specialty Start Date End Date Elina Mendez MD PCP - General Internal Medicine 07/21/20 05/17/21 [facility], Pcp PCP - General Internal Medicine 05/18/21 documented as of this encounter
--- OUTSIDE RECORDS SUMMARY | 2024-07-15 09:58 | XMS_ITS | Encounter Summary ---
[facility] Address [address] [place] [address] Care Team Providers Care Flexible Babysitter Name Role Phone Elina Mendez MD Primary Care Provider Ifrah [facility], Pcp Primary Care Provider Nathen mueller Encounter Details Date Type Department Care Team Description 04/14/2019 Orders Only Medicine/Pediatrics - [address] [address] Elina Mendez MD Preoperative examination; Screening for deficiency anemia Social History Tobacco Use Types Packs/Day Years Used Date Smoking Tobacco: Never Smokeless Tobacco: Never Alcohol Use Standard Drinks/Week Comments Yes 0 (1 standard drink = 0.6 oz pur e alcohol) 6/ year Sex Assigned at Date Recorded Not on file documented as of this encounter Plan of Treatment Not on file documented as of this encounter Results * BASIC METABOLIC PANEL (04/24/2019 10:40 AM EST) Blood Urea Nitrogen 22 5 - 25 mg/dL 04/24/2019 2:04 PM EST [facility] CREAT 0.73 0.5 - 1.1 mg/dL 04/24/2019 2:04 PM EST [facility] GLOMERULAR FILTRATION RATE > 60 04/24/2019 2:04 PM EST [facility] Comment: If patient is -Mongolian, multiply result by 1.21 Chronic Kidney Disease: < 60 ml/min/1.73 square meters Kidney Failure: < 15 ml/min/1.73 square meters NA 138 135 - 145 mEq/L 04/24/2019 2:04 PM EST [facility] K 4.6 3.5 - 5.5 mmol/L 04/24/2019 2:04 PM EST [facility] CL 108 96 - 110 mmol/L 04/24/2019 2:04 PM EST [facility] CARBON DIOXIDE (CO2) 26 21 - 32 mmol/L 04/24/2019 2:04 PM EST [facility] ANION GAP 4 3 - 11 04/24/2019 2:04 PM EST [facility] CALCIUM 9.1 8.5 - 10.5 mg/dL 04/24/2019 2:04 PM EST [facility] GLUCOSE 79 70 - 100 mg/dL 04/24/2019 2:05 PM EST [facility] Comment:Reference range appl icable to fasting specimens only 04/24/2019 10:4 0 AM EST 04/24/2019 10:40 AM EST Elina Mendez MD LAB [facility] * (ABNORMAL) CBC (AUTO DIFF PLATELET) (04/24/2019 10:40 AM EST) Pathologist [facility] WHITE BLOOD COUNT 8.3 4.8 - 10.8 x10-3/uL 04/24/2019 1:49 PM EST [facility] RED BLOOD COUNT 4.1 3.8 - 4.8 x10-6/uL 04/24/2019 1:49 PM EST [facility] Hemoglobin 12.4 11.5 - 16.0 g/dL 04/24/2019 1:49 PM EST [facility] Hematocrit 40.1 35 - 47 % 04/24/2019 1:49 PM EST [facility] MEAN CORPUSCULAR VOLUME 97.1 79 - 98 fL 04/24/2019 1:49 PM EST [facility] MEAN CORPUSCULAR HEMOGLOBIN 30.0 27 - 32 pg 04/24/2019 1:49 PM EST [facility] MEAN CORPUSCULAR HGB CONC 30.9(L) 32 - 37 g/dL 04/24/2019 1:49 PM EST [facility] RED CELL DISTRIBUTION WIDTH 13.2 11 - 15 % 04/24/2019 1:49 PM EST [facility] PLT COUNT 255 130 - 400 x10-3/uL 04/24/2019 1:49 PM EST [facility] MEAN PLATELET VOLUME 9.7 7 - 11 fL 04/24/2019 1:49 PM EST [facility] NRBC % AUTO 0.0 <1 % 04/24/2019 1:49 PM EST [facility] NEUTROPHILS % 58.8 % 04/24/2019 1:49 PM EST [facility] LYMPH % 31.1 % 04/24/2019 1:49 PM EST [facility] MONO % 7.6 % 04/24/2019 1:49 PM EST [facility] EOS % 1.7 % 04/24/2019 1:49 PM EST [facility] BASO % 0.4 % 04/24/2019 1:49 PM EST [facility] IMMATURE GRANULOCYTES % 0.4 % 04/24/2019 1:49 PM EST [facility] NRBC # AUTO 0.00 <0.1 x10-3/uL 04/24/2019 1:49 PM EST [facility] NEUT # 4.91 1.5 - 7.0 x10-3/uL 04/24/2019 1:49 PM EST [facility] LYMPH # 2.59 1 - 5.0 x10-3/uL 04/24/2019 1:49 PM EST [facility] MONO # 0.63 0.2 - 1.0 x10-3/uL 04/24/2019 1:49 PM EST [facility] EOS # 0.14 0 - 0.5 x10-3/uL 04/24/2019 1:49 PM EST [facility] BASO # 0.03 0 - 0.2 x10-3/uL 04/24/2019 1:49 PM EST [facility] IMMATURE GRANULOCYTES # 0.03 0 - 0.03 x10-3/uL 04/24/2019 1:49 PM EST [facility] 04/24/2019 10:4 0 AM EST 04/24/2019 10:40 AM EST Elina Mendez MD LAB [facility] documented in this encounter Visit Diagnoses Diagnosis Preoperative examination Preoperative examination, unspecified Screening for deficiency anemia Screening for other and unspecified deficiency anemia documented in this encounter Care Teams Flexible Babysitter Relationship Specialty Start Date End Date Elina Mendez MD PCP - General Internal Medicine 07/21/20 05/17/21 [facility], Pcp PCP - General Internal Medicine 05/18/21 documented as of this encounter
--- OUTSIDE RECORDS SUMMARY | 2024-07-15 09:58 | XMS_ITS | Encounter Summary ---
[facility] Address [address] [place] [address] Care Team Providers Care Chipper Machine Operator Name Role Phone Elina Mendez MD Primary Care Provider Ifrah jiang [facility], Pcp Primary Care Provider Nathen mueller Encounter Details Date Type Department Care Team Description 05/03/2015 Rustic Terrazzo Setter Report Medical Records [address] [place] [address] Kelly Castillo NP Social History Tobacco Use [...] on filedocumented in this encounter Care Teams Chipper Machine Operator Relationship Specialty Start Date End Date Elina Mendez MD PCP - General Internal Medicine 07/21/20 05/17/21 [facility], Pcp PCP - General Internal Medicine 05/18/21 documented as of this encounter
--- OUTSIDE RECORDS SUMMARY | 2024-07-15 09:58 | XMS_ITS | Encounter Summary ---
[facility] Address [address] [place] [address] Care Team Providers Care Robot Designer Name Role Phone Elina Mendez MD Primary Care Provider Ifrah jiang [facility], Pcp Primary Care Provider Nathen mueller Encounter Details Date Type Department Care Team Description 03/24/2019 Wind Tunnel Technician Report Medical Records [address] [place] [address] Juan Manuel Brown MD Social History Tobacco [...] on filedocumented in this encounter Care Teams Robot Designer Relationship Specialty Start Date End Date Elina Mendez MD PCP - General Internal Medicine 07/21/20 05/17/21 [facility], Pcp PCP - General Internal Medicine 05/18/21 documented as of this encounter
--- OUTSIDE RECORDS SUMMARY | 2024-07-15 09:58 | XMS_ITS | Encounter Summary ---
[facility] Address [address] [place] [address] Care Team Providers Care Edge Setter Name Role Phone Bryan Vasquez MD Primary Care Provider Unavail able Elina Mendez MD Primary Care Provider Unavailmisty jiang [facility], Pcp Primary Care Provider Unavailabl e Encounter Details Date Type Department Care Team Description 01/24/2013 Machine Pecan Picker Report Medical Records [address] [place] [address] Social History Tobacco Use Types Packs/Day Years [...] on filedocumented in this encounter Care Teams Edge Setter Relationship Specialty Start Date End Date Bryan Vasquez MD PCP - General 05/27/02 03/11/15 Elina Mendez MD PCP - General Internal Medicine 07/21/20 05/17/21 [facility], Pcp PCP - General Internal Medicine 05/18/21 documented as of this encounter
--- OUTSIDE RECORDS SUMMARY | 2024-07-15 09:58 | XMS_ITS | Encounter Summary ---
Author Organization [facility] Address [address] [place] [address] Care Team Providers Care Site Promotion Agent Name Role Phone Elina Mendez MD Primary Care Provider Ifrah [facility], Pcp Primary Care Provider Nathen mueller Encounter Details Date Type Department Care Team Description 11/22/2018 Pt. Non Urgent Medical Question Medicine/Pediatrics - [address] [phone] Elina Mendez MD Social History Tobacco Use Types Packs/Day Years Used Date Smoking Tobacco: Never Smokeless Tobacco: Never Alcohol Use Standard Drinks/Week Comments Yes 0 (1 standard drink = 0.6 oz pur e alcohol) 6/ year Sex Assigned at Date Recorded Not on file documented as of this encounter Progress Notes * Macrina Ortiz Rn - 11/22/2018 2:59 PM EDTFrom: Quin Kohli To: Elina Mendez MD Sent: 11/22/2018 2:39 PM EDT Subject: Gabapentin Hi Dr O???Arellano. The soliz for the extended release Gabapentin is ridiculous. My insurance only covers part of it and my part for it is almost $250. So.....can we try the regular type of Gabapentin and not the extended release? Thanks Quin Kohli documented in this encounter Plan of Treatment Not on file documented as of this encounter Visit Diagnoses Not on filedocumented in this encounter Care Teams Site Promotion Agent Relationship Specialty Start Date End Date Elina Mendez MD PCP - General Internal Medicine 07/21/20 05/17/21 [facility], Pcp PCP - General Internal Medicine 05/18/21 documented as of this encounter
--- OUTSIDE RECORDS SUMMARY | 2024-07-15 09:58 | XMS_ITS | Encounter Summary ---
Author Organization [facility] Address [address] [place] [address] Care Team Providers Care Product Line Manager Name Role Phone Elina Mendez MD Primary Care Provider Ifrah jiang [facility], Pcp Primary Care Provider Nathen mueller Encounter Details Date Type Department Care Team Description 02/25/2017 SCAN Medical Records [address] [place] [address] Abstract, Provider Breast pain, left Social History Tobacco Use Types Packs/Day Years Used Date Smoking Tobacco: Never Smokeless Tobacco: Never Alcohol Use Standard Drinks/Week Comments Yes 0 (1 standard drink = 0.6 oz pur e alcohol) 6/ year Sex Assigned at Date Recorded Not on file documented as of this encounter Plan of Treatment Not on file documented as of this encounter Procedures Procedure Name Priority Date/Time Associated Diagnosis Comments SONO BREAST, LIMITED Routine 02/13/2017 Breast pain, left documented in this encounter Results * SONO BREAST, LIMITED (02/13/2017) Elina Mendez MD MAMMOGRAPHY documented in this encounter Visit Diagnoses Diagnosis Breast pain, left Mastodynia documented in this encounter Care Teams Product Line Manager Relationship Specialty Start Date End Date Elina Mendez MD PCP - General Internal Medicine 07/21/20 05/17/21 [facility], Pcp PCP - General Internal Medicine 05/18/21 documented as of this encounter
--- OUTSIDE RECORDS SUMMARY | 2024-07-15 09:58 | XMS_ITS | Encounter Summary ---
[facility] Organization [facility] Address [address] [place] [address] Care Team Providers Care Machine Cutter Name Role Phone Bryan Vasquez MD Primary Care Provider Unavail able Elina Mendez MD Primary Care Provider Ifrah jiang [facility], Pcp Primary Care Provider Unavailabl e Encounter Details Date Type Department Care Team Description 09/19/2011 Geriatric Nurse Practitioner Report Medical Records [address] [place] [address] Micah Pulido MD Social History Tobacco Use [...] on filedocumented in this encounter Care Teams Machine Cutter Relationship Specialty Start Date End Date Bryan Vasquez MD PCP - General 05/27/02 03/11/15 Elina Mendez MD PCP - General Internal Medicine 07/21/20 05/17/21 [facility], Pcp PCP - General Internal Medicine 05/18/21 documented as of this encounter
--- OUTSIDE RECORDS SUMMARY | 2024-07-15 09:58 | XMS_ITS | Encounter Summary ---
[facility] Address [address] [place] [address] Care Team Providers Care Patient Liaison Name Role Phone Elina Mendez MD Primary Care Provider Ifrah [facility], Pcp Primary Care Provider Nathen mueller Encounter Details Date Type Department Care Team Description 06/25/2015 Controlled Substance Contract with Plan Medical Records [address] [place] [id number] Abstract, Provider Social History Tobacco Use Types [...] on filedocumented in this encounter Care Teams Patient Liaison Relationship Specialty Start Date End Date Elina Mendez MD PCP - General Internal Medicine 07/21/20 05/17/21 [facility], Pcp PCP - General Internal Medicine 05/18/21 documented as of this encounter
--- OUTSIDE RECORDS SUMMARY | 2024-07-15 09:58 | XMS_ITS | Encounter Summary ---
Author Organization [facility] Address [address] [place] [address] Care Team Providers Care Diamond Sorter Name Role Phone Elina Mendez MD Primary Care Provider Ifrah jiang [facility], Pcp Primary Care Provider Nathen mueller Encounter Details Date Type Department Care Team Description 05/01/2017 Cake Puncher Report Medical Records [address] [place] [address] Trevor Bundy MD Social History Tobacco Use [...] on filedocumented in this encounter Care Teams Diamond Sorter Relationship Specialty Start Date End Date Elina Mendez MD PCP - General Internal Medicine 07/21/20 05/17/21 [facility], Pcp PCP - General Internal Medicine 05/18/21 documented as of this encounter
--- OUTSIDE RECORDS SUMMARY | 2024-07-15 09:58 | XMS_ITS | Encounter Summary ---
Author Organization [facility] Address [address] [place] [address] Care Team Providers Care Dry Kiln Loader Name Role Phone Bryan Vasquez MD Primary Care Provider Elina Caceres MD Primary Care Provider Ifrah [facility], Pcp Primary Care Provider Unavailabl e Reason for Visit * Reason Onset Date Comments Work note 07/14/2014 Encounter Details Date Type Department Care Team Description 07/14/2014 Telephone Medicine/Pediatrics - [address] [phone] Bryan Vasquez MD Work note Social History Tobacco Use Types Packs/Day Years Used Date Smoking Tobacco: Never Smokeless Tobacco: Never Alcohol Use Standard Drinks/Week Comments Yes 0 (1 standard drink = 0.6 oz pur e alcohol) 6/ year Sex Assigned at Date Recorded Not on file documented as of this encounter Miscellaneous Notes * Telephone Encounter - NADINE Ortega - 07/14/2014 6:05 PM EST Printed note and signed in case she can't print off MyChart. * Telephone Encounter - Lauren Brown M.A. - 07/14/2014 4:14 PM EST Pt is requesting return to work note. Pt was seen 07/09/14 for sinusitis and flu-like sxs. Spoke with pt and reviewed pended note and pt agreed. Pt will attempt to print form MyChart this evening. * Telephone Encounter - Kenishariley Hardinluz - 07/14/2014 12:46 PM EST Work note is for: Return to Work Note Has patient been seen for the reason they were absent from work? Yes For what medical reason was/is patient out of work?: flu sxs and complications If Yes, by whom?: Asiya Gao Date patient seen: 07/09/14 What dates does the patient need the note to cover: Beginning date: End Date: If note for return to work, what is return date: 07/15/14 If note is to return to work, are there restrictions? No. If yes, list: Patient would like note to be: Placed in patient roller picker PATIENT WOULD LIKE TO KNOW IF THIS IS GOING TO BE AVAILABLE FOR HER TO PRINT OFF MYCHART, PLEASE ADVISE documented in this encounter Plan of Treatment Not on file documented as of this encounter Visit Diagnoses Not on filedocumented in this encounter Care Teams Dry Kiln Loader Relationship Specialty Start Date End Date Bryan Vasquez MD PCP - General 05/27/02 03/11/15 Elina Mendez MD PCP - General Internal Medicine 07/21/20 05/17/21 [facility], Pcp PCP - General Internal Medicine 05/18/21 documented as of this encounter
--- OUTSIDE RECORDS SUMMARY | 2024-07-15 09:58 | XMS_ITS | Encounter Summary ---
[facility] Address [address] [place] [address] Care Team Providers Care Asphalt Mixer Name Role Phone Elina Mendez MD Primary Care Provider Ifrah jiang [facility], Pcp Primary Care Provider Nathen mueller Encounter Details Date Type Department Care Team Description 05/25/2015 Graduate Civil Engineer Report Medical Records [address] [place] [address] [address] [place] [address] Social History Tobacco Use Types Packs/Day Years [...] on filedocumented in this encounter Care Teams Asphalt Mixer Relationship Specialty Start Date End Date Elina Mendez MD PCP - General Internal Medicine 07/21/20 05/17/21 [facility], Pcp PCP - General Internal Medicine 05/18/21 documented as of this encounter
--- OUTSIDE RECORDS SUMMARY | 2024-07-15 09:58 | XMS_ITS | Encounter Summary ---
Author [facility] Address [address] [place] [address] Care Team Providers Care Deputy Sheriff Generalist/Bailiff Name Role Phone Elina Mendez MD Primary Care Provider Ifrah [facility], Pcp Primary Care Provider Nathen mueller Encounter Details Date Type Department Care Team Description 02/11/2018 Release of Information Medical Records [address] [place] [id number] Abstract, Provider Social History Tobacco Use Types [...] on filedocumented in this encounter Care Teams Deputy Sheriff Generalist/Bailiff Relationship Specialty Start Date End Date Elina Mendez MD PCP - General Internal Medicine 07/21/20 05/17/21 [facility], Pcp PCP - General Internal Medicine 05/18/21 documented as of this encounter
--- OUTSIDE RECORDS SUMMARY | 2024-07-15 09:58 | XMS_ITS | Encounter Summary ---
[facility] Address [address] [place] [address] Care Team Providers Care Glass Furnace Operator Name Role Phone Elina Mendez MD Primary Care Provider Unavaila [facility], Pcp Primary Care Provider Unavailabl e Reason for Visit * Reason Onset Date Comments Faxed Refill 06/23/2020 Encounter Details Date Type Department Care Team Description 06/23/2020 Refill Medicine/Pediatrics - [address] [phone] Elina Mendez MD Faxed Refill Social History Tobacco Use Types Packs/Day Years [...] PM EST documented as of this encounter Miscellaneous Notes * Telephone Encounter - Rosa Pastrana L.P.N. - 06/23/2020 12:19 PM EST UTD please review and sign * Telephone Encounter - Santa Murillo - 06/23/2020 9:51 AM EST Patient would like script to be: E-PRESCRIBED/FAXED TO PHARMACY WHEN WAS THE PATIENT'S LAST APPOINTMENT IN ADULT MEDICINE? 06/04/20 WHEN WAS THE LAST TIME THE PATIENT SAW THEIR PCP? 04/24/19 Does patient have an upcoming appointment? NO (THE MEDICATION REQUESTED IS ON THE MED LIST ABOVE) All of the medications requested were on the CURRENT MEDS list Did you check the Pharmacy information above?: YES Patient wants: 30 -day supply Is this a mail order prescription request ? NO If the refill is from a FAXED refill request what is the RX # listed on the fax? N/A Patients current insurance carrier is: [place]: [place] POS / Plan: FEP BASIC $30/$40 [place] / Product Type: PPO [id number] documented in this encounter Plan of Treatment Not on file documented as of this encounter Visit Diagnoses Not on filedocumented in this encounter Care Teams Glass Furnace Operator Relationship Specialty Start Date End Date Elina Mendez MD PCP - General Internal Medicine 07/21/20 05/17/21 [facility] Pcp PCP - General Internal Medicine 05/18/21 documented as of this encounter
--- OUTSIDE RECORDS SUMMARY | 2024-07-15 09:58 | XMS_ITS | Encounter Summary ---
Author Organization [facility] Address [address] [place] [address] Care Team Providers Care Facialist Name Role Phone Elina Mendez MD Primary Care Provider Ifrah Bonilla, Pcp Primary Care Provider Nathen mueller Encounter Details Date Type Department Care Team Description 07/23/2020 [facility] Medical Records [address] [place] [address] Abstract, Provider Social History Tobacco Use Types [...] on filedocumented in this encounter Care Teams Facialist Relationship Specialty Start Date End Date Elina Mendez MD PCP - General Internal Medicine 07/21/20 05/17/21 Irene, Pcp PCP - General Internal Medicine 05/18/21 documented as of this encounter
== END 2024-07-15 11:23 | disposition home or self-care (01) ==
PROVIDERS: PCP Internal Medicine; Visit Provider Internal Medicine
DX: R68.89 Other general symptoms and signs (principal); R21 Rash and other nonspecific skin eruption

== ENCOUNTER 2024-07-15 09:04 | Outpatient (REF) | payer BC, SELFPAY ==
[2024-07-15 16:17] LABS: Adenovirus PCR Not Detected (Not Detect.); Bordetella parapertussis PCR Not Detected (Not Detect.); Bordetella pertussis PCR Not Detected (Not Detect.); Chlamydia pneumoniae PCR Not Detected (Not Detect.); Coronavirus 229E PCR Not Detected (Not Detect.); Coronavirus HKU1 PCR Not Detected (Not Detect.); Coronavirus NL63 PCR Not Detected (Not Detect.); Coronavirus OC43 PCR Not Detected (Not Detect.); Human metapneumovirus PCR Not Detected (Not Detect.); Influenza A PCR Not Detected (Not Detect.); Influenza B PCR Not Detected (Not Detect.); Mycoplasma pneumoniae PCR Not Detected (Not Detect.); Parainfluenza 1 PCR Not Detected (Not Detect.); Parainfluenza 2 PCR Not Detected (Not Detect.); Parainfluenza 3 PCR Not Detected (Not Detect.); Parainfluenza 4 PCR Not Detected (Not Detect.); RSV PCR Not Detected (Not Detect.); Rhino/Enterovirus PCR Not Detected (Not Detect.)
[2024-07-15 16:40] LABS: SARS-CoV-2 PCR Not Detected (Not Detect.)
--- OUTSIDE RECORDS SUMMARY | 2024-07-15 17:51 | XMS_ITS | Clinical Summary ---
Author Organization [facility] Address [address] [place] [address] Care Team Providers Care Family Day Care Worker Name Role Phone Unavailable Primary Care Provider Unavailabl e Surgical History Surgery Date Site/Laterality Comments OTHER SURGICAL HISTORY 1992 PROCEDURE: MN RADIAL KERATOTOMY; COMMENT: x 6 HERNIA REPAIR 1990 PROCEDURE: REPAIR INGUINAL HERNIA; COMMENT: RT OTHER SURGICAL HISTORY 1990 PROCEDURE: LAPAROSCOPY PROCEDURE NEC; COMMENT: ENDOMETRIOSIS COLONOSCOPY 08/25/04 PROCEDURE: HISTORICAL COLONOSCOPY; COMMENT: normal with normal colonic bx (to evaluate diarrhea). COLONOSCOPY 11/16/2009 PROCEDURE: HISTORICAL COLONOSCOPY; COMMENT: no polyps; minimal diverticulosis ESOPHAGOGASTRODUODENOSCOPY 04/23/20 PROCEDURE: MN ESOPHAGOGASTRODUODENOSCOPY TRANSORAL DIAGNOSTIC; COMMENT: normal; not on PPI meds. CHOLECYSTECTOMY PROCEDURE: LAPAROSCOPY, CHOLECYSTECTOMY; COMMENT: Herve; [facility] COLONOSCOPY 2013 PROCEDURE: HISTORICAL COLONOSCOPY; COMMENT: No polyps. CERVICAL BIOPSY W/ LOOP ELECTRODE EXCISION PROCEDURE: MN CONIZATION CERVIX W/WO D&C RPR ELTRD EXC [...]
== END 2024-07-15 09:05 | disposition home or self-care (01) ==
LOC: HO.LNP 09:04
PROVIDERS: PCP Internal Medicine; Visit Provider Internal Medicine
DX: R05.9 Cough, unspecified (principal); R51.9 Headache, unspecified; R21 Rash and other nonspecific skin eruption; J45.901 Unspecified asthma with (acute) exacerbation; E78.5 Hyperlipidemia, unspecified; E03.9 Hypothyroidism, unspecified; M79.7 Fibromyalgia; G47.00 Insomnia, unspecified; L02.215 Cutaneous abscess of perineum; J98.8 Other specified respiratory disorders; Z79.899 Other long term (current) drug therapy; Z86.16 Personal history of COVID-19
CPT/HCPCS: 87633; 96127

== ENCOUNTER 2024-07-18 17:38 | Outpatient (REF) | payer BC, SELFPAY ==
--- OUTSIDE RECORDS SUMMARY | 2024-07-18 17:40 | XMS_ITS | Clinical Summary ---
Author Organization [facility] Address [address] [place] [address] Care Team Providers Care Computer Systems Information Director Name Role Phone Unavailable Primary Care Provider Unavailabl e Surgical History Surgery Date Site/Laterality Comments OTHER SURGICAL HISTORY 1992 PROCEDURE: SD RADIAL KERATOTOMY; COMMENT: x 6 HERNIA REPAIR 1990 PROCEDURE: REPAIR INGUINAL HERNIA; COMMENT: RT OTHER SURGICAL HISTORY 1990 PROCEDURE: LAPAROSCOPY PROCEDURE NEC; COMMENT: ENDOMETRIOSIS COLONOSCOPY 08/25/04 PROCEDURE: HISTORICAL COLONOSCOPY; COMMENT: normal with normal colonic bx (to evaluate diarrhea). COLONOSCOPY 11/16/2009 PROCEDURE: HISTORICAL COLONOSCOPY; COMMENT: no polyps; minimal diverticulosis ESOPHAGOGASTRODUODENOSCOPY 04/23/20 PROCEDURE: SD ESOPHAGOGASTRODUODENOSCOPY TRANSORAL DIAGNOSTIC; COMMENT: normal; not on PPI meds. CHOLECYSTECTOMY PROCEDURE: LAPAROSCOPY, CHOLECYSTECTOMY; COMMENT: Herve; [facility] COLONOSCOPY 2013 PROCEDURE: HISTORICAL COLONOSCOPY; COMMENT: No polyps. CERVICAL BIOPSY W/ LOOP ELECTRODE EXCISION PROCEDURE: SD CONIZATION CERVIX W/WO D&C RPR ELTRD EXC [...]
--- OUTSIDE RECORDS SUMMARY | 2024-07-18 17:40 | XMS_ITS | Encounter Summary ---
[facility] Address [address] [place] [address] Care Team Providers Care Storage Receipt Poster Name Role Phone Elina Mendez MD Primary Care Provider Ifrah jiang [facility], Pcp Primary Care Provider Nathen mueller Encounter Details Date Type Department Care Team Description 02/26/2018 Offal Worker Report Medical Records [address] [place] [address] Epi Jasmine MD Social History Tobacco Use [...] on filedocumented in this encounter Care Teams Storage Receipt Poster Relationship Specialty Start Date End Date Elina Mendez MD PCP - General Internal Medicine 07/21/20 05/17/21 [facility], Pcp PCP - General Internal Medicine 05/18/21 documented as of this encounter
--- OUTSIDE RECORDS SUMMARY | 2024-07-18 17:40 | XMS_ITS | Encounter Summary ---
[facility] Address [address] [place] [address] Care Team Providers Care Geometrician Name Role Phone Elina Mendez MD Primary Care Provider Ifrah [facility], Pcp Primary Care Provider Nathen mueller Encounter Details Date Type Department Care Team Description 04/14/2019 Orders Only Medicine/Pediatrics - [address] [address] Elina Mendez MD Preoperative examination; Screening for [...] EST [facility] Comment: If patient is -Kazakh, multiply result by 1.21 Chronic Kidney Disease: [...] AM EST Elina Mendez MD LAB [facility] * (ABNORMAL) CBC (AUTO DIFF PLATELET) (04/24/2019 10:40 AM EST) Pathologist [facility] WHITE BLOOD COUNT 8.3 4.8 - 10.8 [...] anemia documented in this encounter Care Teams Geometrician Relationship Specialty Start Date End Date Elina Mendez MD PCP - General Internal Medicine 07/21/20 05/17/21 [facility], Pcp PCP - General Internal Medicine 05/18/21 documented as of this encounter
--- OUTSIDE RECORDS SUMMARY | 2024-07-18 17:40 | XMS_ITS | Encounter Summary ---
[facility] Organization [facility] Address [address] [place] [address] Care Team Providers Care Clinic Business Manager Name Role Phone Bryan Vasquez MD Primary Care Provider Unavail able Elina Mendez MD Primary Care Provider Ifrah jiang [facility], Pcp [facility] Encounter Details Date Type Department Care Team Description 09/23/2014 Case Finisher Report Medical Records [address] [place] [address] Juan Manuel Brown MD Social History Tobacco [...] on filedocumented in this encounter Care Teams Clinic Business Manager Relationship Specialty Start Date End Date Bryan Vasquez MD PCP - General 05/27/02 03/11/15 Elina Mendez MD PCP - General Internal Medicine 07/21/20 05/17/21 [facility], Pcp PCP - General Internal Medicine 05/18/21 documented as of this encounter
--- OUTSIDE RECORDS SUMMARY | 2024-07-18 17:40 | XMS_ITS | Encounter Summary ---
[facility] Address [address] [place] [address] Care Team Providers Care Supervisor Stage Carpentry Name Role Phone Elina Mendez MD Primary Care Provider Unavaila [facility], Pcp Primary Care Provider Unavailabl e Reason for Visit * Reason Onset Date Comments Faxed Refill 06/23/2020 Encounter Details Date Type Department Care Team Description 06/23/2020 Refill Medicine/Pediatrics - [address] [phone] Elina Mendez MD Faxed Refill Social History [...] BASIC $30/$40 [place] / Product Type: PPO [id number] documented in this encounter Plan of Treatment Not on file documented as of this encounter Visit Diagnoses Not on filedocumented in this encounter Care Teams Supervisor Stage Carpentry Relationship Specialty Start Date End Date Elina Mendez MD PCP - General Internal Medicine 07/21/20 05/17/21 [facility]cp PCP - General Internal Medicine 05/18/21 documented as of this encounter
--- OUTSIDE RECORDS SUMMARY | 2024-07-18 17:40 | XMS_ITS | Encounter Summary ---
Author [facility] Address [address] [place] [address] Care Team Providers Care Sheet Metal Smith Name Role Phone Elina Mendez MD Primary Care Provider Ifrah [facility]illa, Pcp Primary Care Provider Nathen mueller Encounter Details Date Type Department Care Team Description 11/13/2016 PNO Controlled Substance Contract Medical Records [address] [place] [address] Abstract, Provider Social History Tobacco Use Types [...] on filedocumented in this encounter Care Teams Sheet Metal Smith Relationship Specialty Start Date End Date Elina Mendez MD PCP - General Internal Medicine 07/21/20 05/17/21 Irene, Pcp PCP - General Internal Medicine 05/18/21 documented as of this encounter
--- OUTSIDE RECORDS SUMMARY | 2024-07-18 17:40 | XMS_ITS | Encounter Summary ---
Author Organization [facility] Address [address] [place] [address] Care Team Providers Care Fountain Attendant Name Role Phone Elina Mendez MD Primary Care Provider Ifrah [facility], Pcp Primary Care Provider Nathen mueller Encounter Details Date Type Department Care Team Description 11/22/2018 Pt. Non Urgent Medical Question Medicine/Pediatrics - [address] [phone] Elina Mendez MD Social History Tobacco Use [...] on filedocumented in this encounter Care Teams Fountain Attendant Relationship Specialty Start Date End Date Elina Mendez MD PCP - General Internal Medicine 07/21/20 05/17/21 [facility], Pcp PCP - General Internal Medicine 05/18/21 documented as of this encounter
--- OUTSIDE RECORDS SUMMARY | 2024-07-18 17:40 | XMS_ITS | Encounter Summary ---
[facility] Address [address] [place] [address] Care Team Providers Care Database Manager Name Role Phone Elina Mendez MD Primary Care Provider Ifrah jiang [facility], Pcp Primary Care Provider Nathen mueller Encounter Details Date Type Department Care Team Description 12/10/2018 Splicing Machine Operator Automatic Report Medical Records [address] [place] [address] Juan Manuel Brown MD Social History Tobacco [...] on filedocumented in this encounter Care Teams Database Manager Relationship Specialty Start Date End Date Elina Mendez MD PCP - General Internal Medicine 07/21/20 05/17/21 [facility], Pcp PCP - General Internal Medicine 05/18/21 documented as of this encounter
--- OUTSIDE RECORDS SUMMARY | 2024-07-18 17:40 | XMS_ITS | Encounter Summary ---
Author Organization [facility] Address [address] [place] [address] Care Team Providers Care Maintainer Operator Name Role Phone Elina Mendez MD Primary Care Provider Ifrah Bonilla, Pcp Primary Care Provider Nathen mueller Encounter Details Date Type Department Care Team Description 11/13/2016 Release of Information Medical Records [address] [place] [id number] Abstract, Provider Social History Tobacco Use Types [...] on filedocumented in this encounter Care Teams Maintainer Operator Relationship Specialty Start Date End Date Elina Mendez MD PCP - General Internal Medicine 07/21/20 05/17/21 Irene, Pcp PCP - General Internal Medicine 05/18/21 documented as of this encounter
--- OUTSIDE RECORDS SUMMARY | 2024-07-18 17:40 | XMS_ITS | Encounter Summary ---
[facility] Address [address] [place] [address] Care Team Providers Care Motor Vehicle Or Caravan Salesperson Name Role Phone Bryan Vasquez MD Primary Care Provider Unavail able Elina Mendez MD Primary Care Provider Ifrah jiang [facility], Pcp Primary Care Provider Unavailyesenia e Encounter Details Date Type Department Care Team Description 11/10/2011 Hospital Medical Records [address] [place] [id number] David Michael PA-C Social History Tobacco Use [...] on filedocumented in this encounter Care Teams Motor Vehicle Or Caravan Salesperson Relationship Specialty Start Date End Date Bryan Vasquez MD PCP - General 05/27/02 03/11/15 Elina Mendez MD PCP - General Internal Medicine 07/21/20 05/17/21 [facility], Pcp PCP - General Internal Medicine 05/18/21 documented as of this encounter
--- OUTSIDE RECORDS SUMMARY | 2024-07-18 17:40 | XMS_ITS | Clinical Summary ---
Author Organization [facility] Address [address] [place] [address] Care Team Providers Care Fur Matcher Name Role Phone Community, Pcp Primary Care Provider Unavailabl e Allergies Active Allergy Reactions Severity Noted Date Comments Amoxicillin Trihydrate Rash/Dermatitis High 08/25/19 06 Na Benzoate-Sulfamethoxazol e-Trimethoprim Rash/Dermatitis 04/18/2013 Loratadine Hives/Urticaria,SOB, Wheezing 02/23/2015 Codeine 07/11/2005 abd pain Erythromycin 07/11/2005 Metronidazole Hcl Rash/Dermatitis 04/18/2013 Iodine Itching/Pruritus High 08/24/2005 topically, causes blistering, which lasts for months Cephalexin Monohydrate-Polysorbate 80 Anaphylaxis 04/24/2019 Naproxen Rash/Dermatitis 03/22/2009 Rash all over with OTC Aleve Simvastatin Myalgia and Joint Pain 01/30/2014 At 20mg Medications Medication Sig Dispensed Refills Start Date End Date Status fexofenadine (HALINA) 180 MG tablet Take 180 mg by mouth daily. 0 Active fluticasone (FLONASE) 50 MCG/ACT nasal spray 1-2 Sprays by Each Nare route 2 times daily. 1 Bottle 3 03/09/2014 Active omeprazole (PRILOSEC) 20 MG capsule Take 1 Cap by mouth 2 times daily. 60 Cap 1 10/15/2017 Active albuterol (PROVENTIL) (2.5 MG/3ML) 0.083% nebulizer solution Take 1 Vial by nebulization every 4 hours as needed for Wheezing for up to 180 days. 50 Vial 0 05/31/2018 Active orphenadrine (NORFLEX) 100 MG tabletIndications:F atigue, unspecified type Take 1 Tab by mouth 2 times daily as needed for Muscle spasms. 60 Tab 1 11/22/2018 Active EPINEPHrine (EPIPEN 2-ALVIN) 0.3 MG/0.3ML Solution Auto-injector Inject 1 Dose as directed as needed (anaphylaxis). 1 Each 0 09/17/2019 Active ondansetron (ZOFRAN) 4 MG tablet Take 1 Tab by mouth every 8 hours as needed for Nausea for up to 10 days. 30 Tab 0 10/27/2019 Active ALBUTEROL SULFATE (PROAIR HFA) 108 (90 Base) MCG/ACT Aero Soln Inhale 2 Puffs into the lungs every 4 hours as needed for Cough or Wheezing. 1 Inhaler 0 04/16/2020 Active montelukast (SINGULAIR) 10 MG tablet Take 1 Tab by mouth at bedtime. 30 Tab 2 05/26/2020 Active gabapentin (NEURONTIN) 100 MG capsule TAKE 1 CAPSULE BY MOUTH UP TO 3 TIMES DAILY 90 Cap 5 06/04/2020 Active fluticasone (FLOVENT HFA) 110 MCG/ACT inhaler Inhale 2 Puffs into the lungs 2 times daily. 1 Inhaler 5 06/23/2020 Active Zolpidem Tartrate 10 MG TabIndications:Othe r insomnia TAKE 1 TABLET BY MOUTH AT BEDTIME NEEDED FOR INSOMNIA 28 Tab 0 07/20/2020 Active amitriptyline (ELAVIL) 25 MG tablet Take 1 Tab by mouth at bedtime. 90 Tab 1 07/26/2020 Active sumatriptan (IMITREX) 50 MG tablet TAKE 1 TAB BY MOUTH AT ONSET OF HEADACHE, THEN REPEAT DOSE IN 2 HOURS IF NEEDED 9 tablet 0 11/08/2020 Active Active Problems Problem Noted Date S/P partial colectomy 05/02/2019 Overview: Dr. Nichols Hyperlipidemia 05/31/2018 Fibromyalgia 05/31/2018 Essential hypertension 07/16/2017 IBS (irritable bowel syndrome) 4 Diverticulitis 05/01/2013 Overview: 2009 and 04/25, / Migraines 02/14/2013 RUQ pain 04/23/2012 Overview: Onset 2011 with fever and vomiting. EGD normal 04/23/2012. Not relieved with cholecystectomy. Probable functional pain. Insomnia 11/02/2011 Fibroid uterus 09/19/2011 Family history of colonic polyps 010 Overview: Family history of malignant neoplasm of gastrointestinal tract 11/16/2009 Overview: Diverticulosis of colon (without mention of hemorrhage) 11/16/2009 Overview: Incidental finding at colonoscopy 11/16/2009. Seasonal allergies 09/18/2008 Hypercholesteremia 11/14/2007 Cyst of thyroid 09/12/2005 Overview: THYROGLOSSAL DUCT CYST Cervicalgia 09/12/2005 Overview: CHRONIC Candidiasis of vulva and vagina 09/13/19 06 Overview: CHRONIC Endometriosis, site unspecified 07/11/19 06 Overview: IMO update Raynaud's syndrome 07/11/2005 Resolved Problems Problem Noted Date Resolved Date Fibromyalgia 05/31/2018 05/31/2018 Small bowel obstruction 10/17/2013 10/21/19 14 Immunizations Name Administration Dates Next Due COVID-19 (Pfizer) 02/01/2021 COVID-19 (Pfizer) Pt Reported 08/08/2020, 021 Influenza (> 6 Months) 02/01/2021,2019,02/11/2016, 013,02/13/2012,02/27/2011 Influenza Flu (PT Reported) 02/11/2018, 7 Influenza Vaccine-preservati ve Free-quadrivalent 4 Years 03/13/2019 TD (STATE SUPPLIED FOR ADULT S AND CHILDREN) 05/14/1997 Tdap 11/22/2018,06/01/2008 Family History Medical History Relation Name Comments CA Breast Aunt paternal Hypertension Brother Arthritis Father Cancer of the Stomach Father STOMAC H 69 Colon Polyps Father dx in his 40's or 50's. Cancer of the Lung Maternal Grandfather D ECEASED Arthritis Mother CA Colon Mother dx in her 50's Cancer of the Lung Mother 69 Cancer, Other Paternal Grandfather DECEAS ED Relation Name Status Comments Aunt paternal Alive [...] Assigned at Date Recorded Not on file Last Filed Vital Signs Vital Sign Reading Time Taken Comments Blood Pressure 132/87 01/15/2024 1:34 PM EDT Pulse 86 01/15/2024 1:34 PM EDT Temperature 36.5 ??C (97.7 ??F) 01/15/2024 1:34 PM ED T Respiratory Rate 19 12/01/2019 10:2 5 AM EDT Oxygen Saturation 98% 12/01/2019 10: 25 AM EDT Inhaled Oxygen Concentration - - Weight 87.5 kg (192 lb 12.8 oz) 01/15/2024 1:34 PM EDT Height 167.6 cm (5' 6 ) 01/15/2024 1:34 PM EDT Body Mass Index 31.12 01/15/2024 1:34 PM EDT Plan of Treatment Health Maintenance Due Date Last Done Comments SHINGLES VACCINE (1 of 2) 2016 CERVICAL CANCER SCREENING 09/03/20202017, 12/29/2014, 12/30/2013, Additional history exists BASELINE HEALTH EXAM 40-64 09/04/202109/04, 08/17/2017, 08/17/2017, Additional history exists COLON CANCER SCREENING 10/04/2021 7, 06/03/2013, 06/03/2013, Additional history exists Covid-19 Vaccine (2022- 4 season) 2024 02/01/2021, 08/08/2020, 07/18/2020 INFLUENZA (#1) 2024 02/01/2021, 05/2019 (External Completion of Vaccination per patient), 01/13/2020, Additional history exists BMI CHECK/ADVISE 05/14/2024 09/05/2019, 04/2019, 05/31/2018, Additional history exists MAMMOGRAM 10/10/2024 10/11/2023, 09/12, 12/15/2019, Additional history exists CHOLESTEROL SCREENING 06/03/2025 06/03/2020 , 11/22/2018, 05/31/2018, Additional history exists DTAP/TDAP/TD (3 - Td or Tdap) 11/22/2028, 06/01/2008, 05/14/1997 PNEUMOCOCCAL VACCINE FOR HIG H RISK PATIENTS (#1) 2031 HEPATITIS C SCREENING Completed 07/20/2014 Care Teams Fur Matcher Relationship Specialty Start Date End Date Community, Pcp PCP - General Internal Medicine 05/18/21
--- OUTSIDE RECORDS SUMMARY | 2024-07-18 17:40 | XMS_ITS | Encounter Summary ---
Author Organization [facility] Address [address] [place] [address] Care Team Providers Care Track Layer Name Role Phone Elina Mendez MD Primary Care Provider Ifrah jiang [facility], Pcp Primary Care Provider Nathen mueller Encounter Details Date Type Department Care Team Description 06/23/2020 [place] [facility] [address] [phone] Elina Mendez MD Social History Tobacco Use [...] filedocumented in this encounter Care Teams Track Layer Relationship Specialty Start Date End Date Elina Mendez MD PCP - General Internal Medicine 07/21/20 05/17/21 [facility], Pcp PCP - General Internal Medicine 05/18/21 documented as of this encounter
--- OUTSIDE RECORDS SUMMARY | 2024-07-18 17:40 | XMS_ITS | Encounter Summary ---
Author Organization [facility] Address [address] [place] [address] Care Team Providers Care Marketing Information Coordinator Name Role Phone Bryan Vasquez MD Primary Care Provider Elina Caceres MD Primary Care Provider Ifrah jiang [facility], Pcp Primary Care Provider Nathen mueller Encounter Details Date Type Department Care Team Description 01/29/2014 Pt. Non Urgent Medical Question Medicine/Pediatrics - [address] [phone] Asiya Gao FNP Hypercholesteremia (Primary Dx) Social History Tobacco Use Types Packs/Day Years Used Date Smoking Tobacco: Never Smokeless Tobacco: Never Alcohol Use Standard Drinks/Week Comments Yes 0 (1 standard drink = 0.6 oz pur e alcohol) 6/ year Sex Assigned at Date Recorded Not on file documented as of this encounter Progress Notes * Belle Keys M.A. - 01/30/2014 11:50 AM EDTFrom: Quin Kohli To: NADINE Ortega Sent: 01/29/2014 5:55 PM EDT Subject: vitamin C shots, simvistatin Pipo Braden, I have been having pain in my shoulders for a while now (I mentioned it in my last visit) and afterlooking at the list of side effects of the medications I'm on and seeing that it is one of the sideeffects of Simvistatin, I stopped taking it for a few days to see if the pain would resolve. It completely did. I'm not sure if all cholesterol medication has that side effect or not so I don't know i f there is another I could try. I also wondered if I had to make an appt for the Vitamin B12 shots (it seems to help with energy) or can I just pop in when it's due to have the nurse give it? I'm working on getting the records to [place] for my mammogram which I had 2 weeks ago and my pap. The mammogram initially came back showing a lump but the second set of films were ok. The pap cameback with abnormal changes and after having a colpopscopy with Dr Pulido he recommended a LEEPprocedure. I'll have a copy of all of that forwarded after the procedure. Thanks, Quin Kohli documented in this encounter Plan of Treatment Not on file documented as of this encounter Results * TRANSAMINASE (SGPT)(ALT) UV- (07/20/2014 2:38 PM EDT) ALT( SGPT) 20 10 - 60 U/L 07/20/2014 5:52 PM EDT [facility] 07/20/2014 2:38 PM EDT 07/20/2014 2:38 PM EDT [facility] Performing Organization Address [facility] de Phone Number [address] * TRANSAMINASE (SGOT)(AST) UV- (07/20/2014 2:38 PM EDT) AST (SGOT) 16 10 - 42 U/L 07/20/2014 5:52 PM EDT [facility] 07/20/2014 2:38 PM EDT 07/20/2014 2:38 PM EDT As[facility] Performing Organization Address [facility] Co de Phone Number [facility] [address] [place] documented in this encounter Visit Diagnoses Diagnosis Hypercholesteremia- Primary Pure hypercholesterolemia documented in this encounter Care Teams Marketing Information Coordinator Relationship Specialty Start Date End Date Bryan Vasquez MD PCP - General 05/27/02 03/11/15 Elina Mendez MD PCP - General Internal Medicine 07/21/20 05/17/21 [facility], Pcp PCP - General Internal Medicine 05/18/21 documented as of this encounter
--- OUTSIDE RECORDS SUMMARY | 2024-07-18 17:40 | XMS_ITS | Encounter Summary ---
Author Organization [facility] Address [address] [place] [address] Care Team Providers Care Transportation Operations Manager Name Role Phone Elina Mendez MD Primary Care Provider Ifrah Bonilla, Pcp Primary Care Provider Nathen mueller Encounter Details Date Type Department Care Team Description 06/18/2018 Walk In Clinic Visit Medical Records [address] [place] [address] [place], [facility] [address] [place] [phone] Social History Tobacco Use Types Packs/Day Years [...] on filedocumented in this encounter Care Teams Transportation Operations Manager Relationship Specialty Start Date End Date Elina Mendez MD PCP - General Internal Medicine 07/21/20 05/17/21 Irene, Pcp PCP - General Internal Medicine 05/18/21 documented as of this encounter
--- OUTSIDE RECORDS SUMMARY | 2024-07-18 17:40 | XMS_ITS | Encounter Summary ---
[facility] Address [address] [place] [address] Care Team Providers Care Supervisor Ticket Sales Name Role Phone Elina Mendez MD Primary Care Provider Ifrah jiang Pending [facility], Pcp Primary Care Provider Nathen mueller Encounter Details Date Type Department Care Team Description 03/24/2019 Embossing Press Operator Molded Goods Report Medical Records [address] [place] [address] Juan Manuel Brown MD Social History Tobacco [...] filedocumented in this encounter Care Teams Supervisor Ticket Sales Relationship Specialty Start Date End Date Elina Mendez MD PCP - General Internal Medicine 07/21/20 05/17/21 Pending [facility], Pcp PCP - General Internal Medicine 05/18/21 documented as of this encounter
--- OUTSIDE RECORDS SUMMARY | 2024-07-18 17:40 | XMS_ITS | Encounter Summary ---
Author Organization [facility] Address [address] [place] [address] Care Team Providers Care Manager Local Name Role Phone Elina Mendez MD Primary Care Provider [facility], Pcp [facility] Reason for Visit * Reason Comments E-prescribe Rx Request Encounter Details Date Type Department Care Team Description 01/14/2016 Refill Medicine/Pediatrics - [address] [phone] Elina Mendez MD E-prescribe Rx Request Social [...] BASIC $30/$40 [place] / Product Type: PPO [id number] documented in this encounter Plan of Treatment Not on file documented as of this encounter Visit Diagnoses Not on filedocumented in this encounter Care Teams Manager Local Relationship Specialty Start Date End Date Elina Mendez MD PCP - General Internal Medicine 07/21/20 05/17/21 Count Includes [facility], Pcp PCP - General Internal Medicine 05/18/21 documented as of this encounter
--- OUTSIDE RECORDS SUMMARY | 2024-07-18 17:40 | XMS_ITS | Encounter Summary ---
Author Organization [facility] Address [address] [place] [address] Care Team Providers Care Layout Worker Name Role Phone Bryan Vasquez MD Primary Care Provider Unavail Elina Segura MD Primary Care Provider Ifrah [facility], Pcp Primary Care Provider Unavailabl Reason for Visit * Reason Onset Date Comments Provider Call Back 11/10/2011 Encounter Details Date Type Department Care Team Description 11/10/2011 Telephone General Surgery [address] [place] [address] Chris Edgar MD [address] [place] [address] Provider Call Back Social History Tobacco Use [...] Edgar [facility] * Telephone Encounter - [...] on filedocumented in this encounter Care Teams Layout Worker Relationship Specialty Start Date End Date Bryan Vasquez MD PCP - General 05/27/02 03/11/15 Elina Mendez MD PCP - General Internal Medicine 07/21/20 05/17/21 [facility], Pcp PCP - General Internal Medicine 05/18/21 documented as of this encounter
--- OUTSIDE RECORDS SUMMARY | 2024-07-18 17:40 | XMS_ITS | Encounter Summary ---
[facility] Address [address] [place] [address] Care Team Providers Care Compressor Station Engineer Name Role Phone Elina Mendez MD Primary Care Provider Ifrah Bonilla, Pcp Primary Care Provider Nathen mueller Encounter Details Date Type Department Care Team Description 12/10/2018 [facility] Medical Records [address] [place] [address] Abstract, Provider Social History Tobacco Use Types [...] on filedocumented in this encounter Care Teams Compressor Station Engineer Relationship Specialty Start Date End Date Elina Mendez MD PCP - General Internal Medicine 07/21/20 05/17/21 Irene, Pcp PCP - General Internal Medicine 05/18/21 documented as of this encounter
--- OUTSIDE RECORDS SUMMARY | 2024-07-18 17:40 | XMS_ITS | Encounter Summary ---
[facility] Address [address] [place] [address] Care Team Providers Care Cathode Washer Name Role Phone Bryan Vasquez MD Primary Care Provider Unavail able Elina Mendez MD Primary Care Provider Ifrah jiang [facility], Pcp Primary Care Provider Unavailabl e Encounter Details Date Type Department Care Team Description 09/24/2011 Release of Information Medical Records [address] [place] [address] Abstract, Provider Social History Tobacco Use Types [...] on filedocumented in this encounter Care Teams Cathode Washer Relationship Specialty Start Date End Date Bryan Vasquez MD PCP - General 05/27/02 03/11/15 Elina Mendez MD PCP - General Internal Medicine 07/21/20 05/17/21 [facility], Pcp PCP - General Internal Medicine 05/18/21 documented as of this encounter
--- OUTSIDE RECORDS SUMMARY | 2024-07-18 17:40 | XMS_ITS | Encounter Summary ---
[facility] Address [address] [place] [address] Care Team Providers Care Shearing Supervisor Name Role Phone Bryan Vasquez MD Primary Care Provider Unavail able Elina Mendez MD Primary Care Provider Ifrah jiang [facility], Pcp Primary Care Provider Unavailyesenia e Encounter Details Date Type Department Care Team Description 08/20/2014 Release of Information Medical Records [address] [place] [address] Abstract, Provider Social History Tobacco Use Types [...] on filedocumented in this encounter Care Teams Shearing Supervisor Relationship Specialty Start Date End Date Bryan Vasquez MD PCP - General 05/27/02 03/11/15 Elina Mendez MD PCP - General Internal Medicine 07/21/20 05/17/21 [facility], Pcp PCP - General Internal Medicine 05/18/21 documented as of this encounter
--- OUTSIDE RECORDS SUMMARY | 2024-07-18 17:40 | XMS_ITS | Encounter Summary ---
[facility] Address [address] [place] [address] Care Team Providers Care Before School Name Role Phone Bryan Vasquez MD Primary Care Provider Unavail able Elina Mendez MD Primary Care Provider Unavailmisty jiang [facility], Pcp Primary Care Provider Unavailabl e Encounter Details Date Type Department Care Team Description 02/06/2013 Gray Tender Report Medical Records [address] [place] [address] Social History Tobacco Use Types Packs/Day Years [...] on filedocumented in this encounter Care Teams Before School Relationship Specialty Start Date End Date Bryan Vasquez MD PCP - General 05/27/02 03/11/15 Elina Mendez MD PCP - General Internal Medicine 07/21/20 05/17/21 [facility], Pcp PCP - General Internal Medicine 05/18/21 documented as of this encounter
--- OUTSIDE RECORDS SUMMARY | 2024-07-18 17:40 | XMS_ITS | Encounter Summary ---
[facility] Address [address] [place] [address] Care Team Providers Care Violent Crimes Detective Name Role Phone Elina Mendez MD Primary Care Provider Ifrah jiang [facility], Pcp Primary Care Provider Nathen mueller Encounter Details Date Type Department Care Team Description 05/01/2017 Certified Registered Locksmith Report Medical Records [address] [place] [address] Trevor Bundy MD Social History Tobacco Use [...] on filedocumented in this encounter Care Teams Violent Crimes Detective Relationship Specialty Start Date End Date Elina Mendez MD PCP - General Internal Medicine 07/21/20 05/17/21 [facility], Pcp PCP - General Internal Medicine 05/18/21 documented as of this encounter
--- OUTSIDE RECORDS SUMMARY | 2024-07-18 17:40 | XMS_ITS | Encounter Summary ---
[facility] Address [address] [place] [address] Care Team Providers Care Laundry Machine Operator Name Role Phone Bryan Vasquez MD Primary Care Provider Unavail able Elina Mendez MD Primary Care Provider Ifrah jiang [facility], Pcp Primary [facility] Encounter Details Date Type Department Care Team Description 12/11/2013 Developmental Behavioral Physician Report Medical Records [address] [place] [address] Juan Manuel Brown MD Social History Tobacco [...] on filedocumented in this encounter Care Teams Laundry Machine Operator Relationship Specialty Start Date End Date Bryan Vasquez MD PCP - General 05/27/02 03/11/15 Elina Mendez MD PCP - General Internal Medicine 07/21/20 05/17/21 [facility], Pcp PCP - General Internal Medicine 05/18/21 documented as of this encounter
--- OUTSIDE RECORDS SUMMARY | 2024-07-18 17:40 | XMS_ITS | Encounter Summary ---
[facility] Address [address] [place] [address] Care Team Providers Care Mild Disabilities Teacher Name Role Phone Elina Mendez MD Primary Care Provider Ifrah jiang [facility], Pcp Primary Care Provider Nathen mueller Encounter Details Date Type Department Care Team Description 09/06/2018 New Car Salesperson Report Medical Records [address] [place] [address] Juan Manuel Brown MD Social History [...] on filedocumented in this encounter Care Teams Mild Disabilities Teacher Relationship Specialty Start Date End Date Elina Mendez MD PCP - General Internal Medicine 07/21/20 05/17/21 [facility], Pcp PCP - General Internal Medicine 05/18/21 documented as of this encounter
--- OUTSIDE RECORDS SUMMARY | 2024-07-18 17:40 | XMS_ITS | Encounter Summary ---
[facility] Address [address] [place] [address] Care Team Providers Care Director Workers Compensation Name Role Phone Bryan Vasquez MD Primary Care Provider Unavail able Elina Mendez MD Primary Care Provider Ifrah jiang [facility], Pcp Primary Care Provider [facility] Encounter Details Date Type Department Care Team Description 01/20/2014 Mercantile Reporter Report Medical Records [address] [place] [address] Juan Manuel Brown MD Social History Tobacco [...] filedocumented in this encounter Care Teams Director Workers Compensation Relationship Specialty Start Date End Date Bryan Vasquez MD PCP - General 05/27/02 03/11/15 Elina Mendez MD PCP - General Internal Medicine 07/21/20 05/17/21 [facility], Pcp PCP - General Internal Medicine 05/18/21 documented as of this encounter
--- OUTSIDE RECORDS SUMMARY | 2024-07-18 17:40 | XMS_ITS | Encounter Summary ---
[facility] Address [address] [place] [address] Care Team Providers Care Java Security Architect Name Role Phone Elina Mendez MD Primary Care Provider Ifrah jiang [facility], Pcp Primary Care Provider Nathen mueller Encounter Details Date Type Department Care Team Description 11/15/2017 Neurophysiologist Report Medical Records [address] [place] [address] Juan Manuel Brown MD Social History Tobacco [...] on filedocumented in this encounter Care Teams Java Security Architect Relationship Specialty Start Date End Date Elina Mendez MD PCP - General Internal Medicine 07/21/20 05/17/21 [facility], Pcp PCP - General Internal Medicine 05/18/21 documented as of this encounter
--- OUTSIDE RECORDS SUMMARY | 2024-07-18 17:40 | XMS_ITS | Encounter Summary ---
[facility] Address [address] [place] [address] Care Team Providers Care Diamond Setter Apprentice Name Role Phone Elina Mendez MD Primary Care Provider Ifrah Bonilla, Pcp Primary Care Provider Nathen mueller Encounter Details Date Type Department Care Team Description 06/25/2015 Controlled Substance Contract with Plan Medical Records [address] [place] [id number] Abstract, Provider Social History Tobacco Use Types [...] filedocumented in this encounter Care Teams Diamond Setter Apprentice Relationship Specialty Start Date End Date Elina Mendez MD PCP - General Internal Medicine 07/21/20 05/17/21 Irene, Pcp PCP - General Internal Medicine 05/18/21 documented as of this encounter
--- OUTSIDE RECORDS SUMMARY | 2024-07-18 17:40 | XMS_ITS | Encounter Summary ---
[facility] Address [address] [place] [address] Care Team Providers Care Mica Machine Operator Name Role Phone Elina Mendez MD Primary Care Provider Ifrah jiang [facility], Pcp Primary Care Provider Nathen mueller Encounter Details Date Type Department Care Team Description 03/06/2018 Equipment Superintendent Report Medical Records [address] [place] [address] Epi Jasmine MD Social History Tobacco Use [...] on filedocumented in this encounter Care Teams Mica Machine Operator Relationship Specialty Start Date End Date Elina Mendez MD PCP - General Internal Medicine 07/21/20 05/17/21 [facility], Pcp PCP - General Internal Medicine 05/18/21 documented as of this encounter
--- OUTSIDE RECORDS SUMMARY | 2024-07-18 17:40 | XMS_ITS | Encounter Summary ---
[facility] Address [address] [place] [address] Care Team Providers Care Retail Client Solutions Consultant Name Role Phone Bryan Vasquez MD Primary Care Provider Unavail able Elina Mendez MD Primary Care Provider Ifrah jiang [facility], Pcp Primary Care Provider Unavailyesenia e Encounter Details Date Type Department Care Team Description 02/19/2014 Hospital Medical Records [address] [place] [phone] Micah Pulido MD Social History Tobacco Use [...] on filedocumented in this encounter Care Teams Retail Client Solutions Consultant Relationship Specialty Start Date End Date Bryan Vasquez MD PCP - General 05/27/02 03/11/15 Elina Mendez MD PCP - General Internal Medicine 07/21/20 05/17/21 [facility], Pcp PCP - General Internal Medicine 05/18/21 documented as of this encounter
--- OUTSIDE RECORDS SUMMARY | 2024-07-18 17:40 | XMS_ITS | Encounter Summary ---
[facility] Address [address] [place] [address] Care Team Providers Care Epidemiology Investigator Name Role Phone Elina Mendez MD Primary Care Provider Ifrah jiang [facility], Pcp Primary Care Provider Nathen mueller Encounter Details Date Type Department Care Team Description 05/25/2015 Exhaust Emissions Automotive Technician Report Medical Records [address] [place] [address] [address] [place] [address] Social History Tobacco Use Types Packs/Day Years [...] on filedocumented in this encounter Care Teams Epidemiology Investigator Relationship Specialty Start Date End Date Elina Mendez MD PCP - General Internal Medicine 07/21/20 05/17/21 Irene, Pcp PCP - General Internal Medicine 05/18/21 documented as of this encounter
--- OUTSIDE RECORDS SUMMARY | 2024-07-18 17:40 | XMS_ITS | Encounter Summary ---
[facility] Address [address] [place] [address] Care Team Providers Care Operations Intern Name Role Phone Bryan Vasquez MD Primary Care Provider Unavail able Elina Mendez MD Primary Care Provider Unavaila deidre [facility], Pcp [facility] Encounter Details Date Type Department Care Team Description 1965 Studio Couch Frame Builder Report Medical Records [address] [place] [id number] Epi Jasmine MD Social History Tobacco Use Types Packs/Day Years Used Date Smoking Tobacco: Never Assessed Sex Assigned at Date Recorded Not on file documented as of this encounter Plan of Treatment Not on file documented as of this encounter Visit Diagnoses Not on filedocumented in this encounter Care Teams Operations Intern Relationship Specialty Start Date End Date Bryan Vasquez MD PCP - General 05/27/02 03/11/15 Elina Mendez MD PCP - General Internal Medicine 07/21/20 05/17/21 [facility], Pcp PCP - General Internal Medicine 05/18/21 documented as of this encounter
--- OUTSIDE RECORDS SUMMARY | 2024-07-18 17:40 | XMS_ITS | Encounter Summary ---
[facility] Address [address] [place] [address] Care Team Providers Care Executive Talent Acquisition Consultant Name Role Phone Bryan Vasquez MD Primary Care Provider Unavail able Elina Mendez MD Primary Care Provider Ifrah jiang [facility], Pcp Primary Care Provider Unavailyesenia e Encounter Details Date Type Department Care Team Description 07/04/2014 Walk In Clinic Visit Medical Records [address] [place] [id number] Social History Tobacco Use Types Packs/Day Years [...] on filedocumented in this encounter Care Teams Executive Talent Acquisition Consultant Relationship Specialty Start Date End Date Bryan Vasquez MD PCP - General 05/27/02 03/11/15 Elina Mendez MD PCP - General Internal Medicine 07/21/20 05/17/21 [facility], Pcp PCP - General Internal Medicine 05/18/21 documented as of this encounter
--- OUTSIDE RECORDS SUMMARY | 2024-07-18 17:40 | XMS_ITS | Encounter Summary ---
[facility] Address [address] [place] [address] Care Team Providers Care Buckle Strap Drum Operator Name Role Phone Elina Mendez MD [facility] Reason for Visit * Reason Comments E-prescribe Rx Request Encounter Details Date Type Department Care Team Description 07/15/2019 Refill Medicine/Pediatrics - [address] [phone] Karen Krueger PA-C E-prescribe Rx Request Social [...] BASIC $30/$40 [place] / Product Type: PPO [id number] documented in this encounter Plan of Treatment Not on file documented as of this encounter Visit Diagnoses Not on filedocumented in this encounter Care Teams Buckle Strap Drum Operator Relationship Specialty Start Date End Date Elina Mendez MD PCP - General Internal Medicine 07/21/20 [facility]17[facility]21 [facility] - [facility] Internal Medicine 05/18/21 documented as of this encounter
== END 2024-07-18 17:39 | disposition home or self-care (01) ==
LOC: HO.LNP 17:38
PROVIDERS: Visit Provider Internal Medicine
DX: R21 Rash and other nonspecific skin eruption (principal); L02.215 Cutaneous abscess of perineum
CPT/HCPCS: 87252; 87254; 87255

== ENCOUNTER 2024-08-19 11:01 | Outpatient (REF) | payer BC, SELFPAY ==
--- OUTSIDE RECORDS SUMMARY | 2024-08-19 15:23 | XMS_ITS | Encounter Summary ---
[facility] Address [address] [place] [address] Care Team Providers Care Campaign Manager Name Role Phone Elina Mendez MD Primary Care Provider Ifrah jiang [facility], Pcp Primary Care Provider Nathen mueller Encounter Details Date Type Department Care Team Description 11/15/2017 Iridologist Report Medical Records [address] [place] [address] Juan Manuel Brown MD Social History Tobacco [...] on filedocumented in this encounter Care Teams Campaign Manager Relationship Specialty Start Date End Date Elina Mendez MD PCP - General Internal Medicine 07/21/20 05/17/21 [facility], Pcp PCP - General Internal Medicine 05/18/21 documented as of this encounter
--- OUTSIDE RECORDS SUMMARY | 2024-08-19 15:23 | XMS_ITS | Encounter Summary ---
Author Organization [facility] Address [address] [place] [address] Care Team Providers Care Cardroom Manager Name Role Phone Bryan Vasquez MD Primary Care Provider Elina Caceres MD Primary Care Provider Ifrah jiang [facility], Pcp Primary Care Provider Nathen mueller Encounter Details Date Type Department Care Team Description 01/29/2014 Pt. Non Urgent Medical Question Medicine/Pediatrics - [address] [phone] Asiya Gao FNP Hypercholesteremia (Primary Dx) Social [...] I'm working on getting the records to [place] for my mammogram which I had 2 [...] - 60 U/L 07/20/2014 5:52 PM EDT [facility] 07/20/2014 2:38 PM EDT 07/20/2014 2:38 PM EDT Asiya [facility] Performing Organization Address [facility] de Phone Number [address] * TRANSAMINASE (SGOT)(AST) UV- (07/20/2014 2:38 PM EDT) AST (SGOT) 16 10 - 42 U/L 07/20/2014 5:52 PM EDT [facility] 07/20/2014 2:38 PM EDT 07/20/2014 2:38 PM EDT Asiya [facility] Performing Organization Address [facility] Co de Phone Number [facility] [address] [place] documented in this encounter Visit Diagnoses Diagnosis Hypercholesteremia- Primary Pure hypercholesterolemia documented in this encounter Care Teams Cardroom Manager Relationship Specialty Start Date End Date Bryan Vasquez MD PCP - General 05/27/02 03/11/15 Elina Mendez MD PCP - General Internal Medicine 07/21/20 05/17/21 [facility], Pcp PCP - General Internal Medicine 05/18/21 documented as of this encounter
--- OUTSIDE RECORDS SUMMARY | 2024-08-19 15:23 | XMS_ITS | Encounter Summary ---
[facility] Organization [facility] Address [address] [place] [address] Care Team Providers Care Legislative Analyst Name Role Phone Elina Mendez MD Primary Care Provider Ifrah jiang [facility], Pcp Primary Care Provider Nathen mueller Encounter Details Date Type Department Care Team Description 03/15/2017 Transactional Paralegal Report Medical Records [address] [place] [phone] Trevor Bundy MD Social History Tobacco Use [...] on filedocumented in this encounter Care Teams Legislative Analyst Relationship Specialty Start Date End Date Elina Mendez MD PCP - General Internal Medicine 07/21/20 05/17/21 [facility], Pcp PCP - General Internal Medicine 05/18/21 documented as of this encounter
--- OUTSIDE RECORDS SUMMARY | 2024-08-19 15:23 | XMS_ITS | Encounter Summary ---
[facility] Organization [facility] Address [address] [place] [address] Care Team Providers Care Director Drug Safety Name Role Phone Elina Mendez MD Primary Care Provider Ifrah [facility], Pcp Primary Care Provider Nathen mueller Encounter Details Date Type Department Care Team Description 06/25/2015 Controlled Substance Contract with Plan Medical Records [address] [place] [address] Abstract, Provider Social History Tobacco Use Types [...] filedocumented in this encounter Care Teams Director Drug Safety Relationship Specialty Start Date End Date Elina Mendez MD PCP - General Internal Medicine 07/21/20 05/17/21 [facility], Pcp PCP - General Internal Medicine 05/18/21 documented as of this encounter
--- OUTSIDE RECORDS SUMMARY | 2024-08-19 15:23 | XMS_ITS | Encounter Summary ---
[facility] Organization [facility] Address [address] [place] [address] Care Team Providers Care High School Math Tutor Name Role Phone Elina Mendez MD Primary Care Provider Ifrah jiang [facility], Pcp Primary Care Provider Nathen mueller Encounter Details Date Type Department Care Team Description 06/01/2020 Transfer Records Medical Records [address] [place] [address] Abstract, Provider Social History Tobacco Use Types [...] on filedocumented in this encounter Care Teams High School Math Tutor Relationship Specialty Start Date End Date Elina Mendez MD PCP - General Internal Medicine 07/21/20 05/17/21 [facility], Pcp PCP - General Internal Medicine 05/18/21 documented as of this encounter
--- OUTSIDE RECORDS SUMMARY | 2024-08-19 15:23 | XMS_ITS | Encounter Summary ---
Author Organization [facility] Address [address] [place] [address] Care Team Providers Care Home Health Administrator Name Role Phone Bryan Vasquez MD Primary Care Provider Elina Caceres MD Primary Care Provider Ifrah [facility], Pcp Primary Care Provider Unavailabl e Reason for Visit * Reason Onset Date Comments Work note 07/14/2014 Encounter Details Date Type Department Care Team Description 07/14/2014 Telephone Medicine/Pediatrics - [address] [phone] Bryan Vasquez MD Work note Social History [...] like note to be: Placed in patient sheepskin pickler PATIENT WOULD LIKE TO KNOW IF THIS IS GOING TO BE AVAILABLE FOR HER TO PRINT OFF MYCHART, PLEASE ADVISE documented in this encounter Plan of Treatment Not on file documented as of this encounter Visit Diagnoses Not on filedocumented in this encounter Care Teams Home Health Administrator Relationship Specialty Start Date End Date Bryan Vasquez MD PCP - General 05/27/02 03/11/15 Elina Mendez MD PCP - General Internal Medicine 07/21/20 05/17/21 [facility], Pcp PCP - General Internal Medicine 05/18/21 documented as of this encounter
--- OUTSIDE RECORDS SUMMARY | 2024-08-19 15:23 | XMS_ITS | Clinical Summary ---
Author Organization [facility] Address [address] [place] [address] Care Team Providers Care Code Inspector Name Role Phone Unavailable Primary Care Provider Unavailabl e Surgical History Surgery Date Site/Laterality Comments OTHER SURGICAL HISTORY 1992 PROCEDURE: OR RADIAL KERATOTOMY; COMMENT: x 6 HERNIA REPAIR 1990 PROCEDURE: REPAIR INGUINAL HERNIA; COMMENT: RT OTHER SURGICAL HISTORY 1990 PROCEDURE: LAPAROSCOPY PROCEDURE NEC; COMMENT: ENDOMETRIOSIS COLONOSCOPY 08/25/04 PROCEDURE: HISTORICAL COLONOSCOPY; COMMENT: normal with normal colonic bx (to evaluate diarrhea). COLONOSCOPY 11/16/2009 PROCEDURE: HISTORICAL COLONOSCOPY; COMMENT: no polyps; minimal diverticulosis ESOPHAGOGASTRODUODENOSCOPY 04/23/20 PROCEDURE: OR ESOPHAGOGASTRODUODENOSCOPY TRANSORAL DIAGNOSTIC; COMMENT: normal; not on PPI meds. CHOLECYSTECTOMY PROCEDURE: LAPAROSCOPY, CHOLECYSTECTOMY; COMMENT: Herve; [facility] COLONOSCOPY 2013 PROCEDURE: HISTORICAL COLONOSCOPY; COMMENT: No polyps. CERVICAL BIOPSY W/ LOOP ELECTRODE EXCISION PROCEDURE: OR CONIZATION CERVIX W/WO D&C RPR ELTRD EXC [...]
--- OUTSIDE RECORDS SUMMARY | 2024-08-19 15:23 | XMS_ITS | Encounter Summary ---
[facility] Organization [facility] Address [address] [place] [address] Care Team Providers Care Agriculture Internship Name Role Phone Elina Mendez MD Primary Care Provider Ifrah jiang [facility], Pcp Primary Care Provider Nathen mueller Encounter Details Date Type Department Care Team Description 02/26/2018 Physiology Teacher Report Medical Records [address] [place] [address] Epi Jasmine MD Social History Tobacco Use [...] on filedocumented in this encounter Care Teams Agriculture Internship Relationship Specialty Start Date End Date Elina Mendez MD PCP - General Internal Medicine 07/21/20 05/17/21 [facility], Pcp PCP - General Internal Medicine 05/18/21 documented as of this encounter
--- OUTSIDE RECORDS SUMMARY | 2024-08-19 15:23 | XMS_ITS | Encounter Summary ---
[facility] Address [address] [place] [address] Care Team Providers Care Certified Green Building Engineer Name Role Phone Bryan Vasquez MD Primary Care Provider Unavail able Elina Mendez MD Primary Care Provider Unavailmisty jiang [facility], Pcp Primary Care Provider Unavailabl e Encounter Details Date Type Department Care Team Description 01/24/2013 Physical Sciences Professor Report Medical Records [address] [place] [address] Social History Tobacco Use Types Packs/Day Years [...] on filedocumented in this encounter Care Teams Certified Green Building Engineer Relationship Specialty Start Date End Date Bryan Vasquez MD PCP - General 05/27/02 03/11/15 Elina Mendez MD PCP - General Internal Medicine 07/21/20 05/17/21 [facility], Pcp PCP - General Internal Medicine 05/18/21 documented as of this encounter
--- OUTSIDE RECORDS SUMMARY | 2024-08-19 15:23 | XMS_ITS | Encounter Summary ---
[facility] Address [address] [place] [address] Care Team Providers Care Brick Off Bearer Name Role Phone Elina Mendez MD Primary Care Provider Ifrah jiang [facility], Pcp Primary Care Provider Nathen mueller Encounter Details Date Type Department Care Team Description 05/01/2017 Patient Services Specialist Report Medical Records [address] [place] [address] Trevor Bundy MD Social History Tobacco Use [...] on filedocumented in this encounter Care Teams Brick Off Bearer Relationship Specialty Start Date End Date Elina Mendez MD PCP - General Internal Medicine 07/21/20 05/17/21 [facility], Pcp PCP - General Internal Medicine 05/18/21 documented as of this encounter
--- OUTSIDE RECORDS SUMMARY | 2024-08-19 15:23 | XMS_ITS | Encounter Summary ---
[facility] Address [address] [place] [address] Care Team Providers Care Long Chain Beamer Name Role Phone Elina Mendez MD Primary Care Provider Unavaila [facility], Pcp Primary Care Provider Unavailabl e Reason for Visit * Reason Onset Date Comments Faxed Refill 06/23/2020 Encounter Details Date Type Department Care Team Description 06/23/2020 Refill Medicine/Pediatrics - [address] [phone] Elina Mendez MD Faxed Refill Social History [...] BASIC $30/$40 [place] / Product Type: PPO [id number] documented in this encounter Plan of Treatment Not on file documented as of this encounter Visit Diagnoses Not on filedocumented in this encounter Care Teams Long Chain Beamer Relationship Specialty Start Date End Date Elina Mendez MD PCP - General Internal Medicine 07/21/20 05/17/21 [facility] Pcp PCP - General Internal Medicine 05/18/21 documented as of this encounter
--- OUTSIDE RECORDS SUMMARY | 2024-08-19 15:23 | XMS_ITS | Encounter Summary ---
[facility] Address [address] [place] [address] Care Team Providers Care Nutrition Manager Name Role Phone Bryan Vasquez MD Primary Care Provider Unavail able Elina Mendez MD Primary Care Provider Ifrah jiang [facility], Pcp Primary Care Provider [facility] e Encounter Details Date Type Department Care Team Description 09/23/2014 Soil Tester Report Medical Records [address] [place] [address] Juan Manuel Brown MD Social History Tobacco [...] on filedocumented in this encounter Care Teams Nutrition Manager Relationship Specialty Start Date End Date Bryan Vasquez MD PCP - General 05/27/02 03/11/15 Elina Mendez MD PCP - General Internal Medicine 07/21/20 05/17/21 [facility], Pcp PCP - General Internal Medicine 05/18/21 documented as of this encounter
--- OUTSIDE RECORDS SUMMARY | 2024-08-19 15:23 | XMS_ITS | Encounter Summary ---
[facility] Address [address] [place] [address] Care Team Providers Care Software Release Engineer Name Role Phone Elina Mendez MD Primary Care Provider Ifrah [facility], Pcp Primary Care Provider Nathen mueller Encounter Details Date Type Department Care Team Description 04/14/2019 Orders Only Medicine/Pediatrics - [address] [address] Elina Mendez MD Preoperative examination; Screening for [...] EST [facility] Comment: If patient is -Lao, multiply result by 1.21 Chronic Kidney Disease: [...] AM EST Elina Mendez MD LAB [facility] * (ABNORMAL) CBC (AUTO DIFF PLATELET) (04/24/2019 10:40 AM EST) Pathologist [facility] WHITE BLOOD COUNT 8.3 4.8 - 10.8 [...] anemia documented in this encounter Care Teams Software Release Engineer Relationship Specialty Start Date End Date Elina Mendez MD PCP - General Internal Medicine 07/21/20 05/17/21 [facility], Pcp PCP - General Internal Medicine 05/18/21 documented as of this encounter
--- OUTSIDE RECORDS SUMMARY | 2024-08-19 15:23 | XMS_ITS | Encounter Summary ---
[facility] Organization [facility] Address [address] [place] [address] Care Team Providers Care Teletypist Name Role Phone Bryna Vasquez MD Primary Care Provider Unavail able Elina Mendez MD Primary Care Provider Ifrah jiang [facility], Pcp Primary Care Provider Unavailabl e Encounter Details Date Type Department Care Team Description 09/19/2011 Splitter Head Report Medical Records [address] [place] [address] Micah Pulido MD Social History Tobacco Use [...] on filedocumented in this encounter Care Teams Teletypist Relationship Specialty Start Date End Date Bryan Vasquez MD PCP - General 05/27/02 03/11/15 Elina Mendez MD PCP - General Internal Medicine 07/21/20 05/17/21 [facility], Pcp PCP - General Internal Medicine 05/18/21 documented as of this encounter
--- OUTSIDE RECORDS SUMMARY | 2024-08-19 15:23 | XMS_ITS | Encounter Summary ---
Author Organization [facility] Address [address] [place] [address] Care Team Providers Care Forge Shop Machine Repairer Name Role Phone Bryan Vasquez MD Primary Care Provider Unavail able Elina Mendez MD Primary Care Provider Ifrah jiang [facility], Pcp Primary Care Provider Unavailyesenia e Encounter Details Date Type Department Care Team Description 02/19/2014 Hospital Medical Records [address] [place] [address] Micah Pulido MD Social History Tobacco Use [...] on filedocumented in this encounter Care Teams Forge Shop Machine Repairer Relationship Specialty Start Date End Date Bryan Vasquez MD PCP - General 05/27/02 03/11/15 Elina Mendez MD PCP - General Internal Medicine 07/21/20 05/17/21 [facility], Pcp PCP - General Internal Medicine 05/18/21 documented as of this encounter
--- OUTSIDE RECORDS SUMMARY | 2024-08-19 15:23 | XMS_ITS | Encounter Summary ---
[facility] Organization [facility] Address [address] [place] [address] Care Team Providers Care Pharmaceutical Assistant Name Role Phone Elina Mendez MD Primary Care Provider Ifrah jiang [facility], Pcp Primary Care Provider Nathen mueller Encounter Details Date Type Department Care Team Description 04/06/2015 Application Manager Report Medical Records [address] [place] [address] Kelly Castillo NP Social History Tobacco Use [...] on filedocumented in this encounter Care Teams Pharmaceutical Assistant Relationship Specialty Start Date End Date Elina Mendez MD PCP - General Internal Medicine 07/21/20 05/17/21 [facility], Pcp PCP - General Internal Medicine 05/18/21 documented as of this encounter
--- OUTSIDE RECORDS SUMMARY | 2024-08-19 15:23 | XMS_ITS | Encounter Summary ---
[facility] Address [address] [place] [address] Care Team Providers Care Ditch Rider Name Role Phone Elina Mendez MD Primary Care Provider Ifrah [facility], Pcp Primary Care Provider Nathen mueller Encounter Details Date Type Department Care Team Description 11/13/2016 Release of Information Medical Records [address] [place] [phone] Abstract, Provider Social History Tobacco Use Types [...] on filedocumented in this encounter Care Teams Ditch Rider Relationship Specialty Start Date End Date Elina Mendez MD PCP - General Internal Medicine 07/21/20 05/17/21 [facility], Pcp PCP - General Internal Medicine 05/18/21 documented as of this encounter
--- OUTSIDE RECORDS SUMMARY | 2024-08-19 15:23 | XMS_ITS | Encounter Summary ---
Author [facility] Address [address] [place] [address] Care Team Providers Care Student Records Specialist Name Role Phone Bryan Vasquez MD Primary Care Provider Unavail able Elina Mendez MD Primary Care Provider Ifrah jiang [facility], Pcp Primary Care Provider Unavailyesenia e Encounter Details Date Type Department Care Team Description 03/07/2013 Costume Mistress Report Medical Records [address] [place] [phone] Mark Olivas Social History Tobacco Use Types [...] on filedocumented in this encounter Care Teams Student Records Specialist Relationship Specialty Start Date End Date Bryan Vasquez MD PCP - General 05/27/02 03/11/15 Elina Mendez MD PCP - General Internal Medicine 07/21/20 05/17/21 [facility], Pcp PCP - General Internal Medicine 05/18/21 documented as of this encounter
--- OUTSIDE RECORDS SUMMARY | 2024-08-19 15:23 | XMS_ITS | Encounter Summary ---
Author [facility] Address [address] [place] [address] Care Team Providers Care Division Field Inspector Name Role Phone Bryan Vasquez MD Primary Care Provider Unavail able Elina Mendez MD Primary Care Provider Ifrah jiang [facility], Pcp Primary Care Provider Unavailyesenia e Encounter Details Date Type Department Care Team Description 04/30/2014 [facility] Medical Records [address] [place] [phone] Sonal Lee Social History Tobacco Use Types [...] on filedocumented in this encounter Care Teams Division Field Inspector Relationship Specialty Start Date End Date Bryan Vasquez MD PCP - General 05/27/02 03/11/15 Elina Mendez MD PCP - General Internal Medicine 07/21/20 05/17/21 [facility], Pcp PCP - General Internal Medicine 05/18/21 documented as of this encounter
--- OUTSIDE RECORDS SUMMARY | 2024-08-19 15:23 | XMS_ITS | Encounter Summary ---
[facility] Organization [facility] Address [address] [place] [address] Care Team Providers Care Handmade Tile Artist Name Role Phone Bryan Vasquez MD Primary Care Provider Unavail able Elina Mendez MD Primary Care Provider Ifrah jiang [facility], Pcp [facility] Encounter Details Date Type Department Care Team Description 01/20/2014 Prospecting Driller Helper Report Medical Records [address] [place] [id number] Juan Manuel Brown MD Social History Tobacco [...] on filedocumented in this encounter Care Teams Handmade Tile Artist Relationship Specialty Start Date End Date Bryan Vasquez MD PCP - General 05/27/02 03/11/15 Elina Mendez MD PCP - General Internal Medicine 07/21/20 05/17/21 [facility], Pcp PCP - General Internal Medicine 05/18/21 documented as of this encounter
--- OUTSIDE RECORDS SUMMARY | 2024-08-19 15:23 | XMS_ITS | Encounter Summary ---
[facility] Address [address] [place] [address] Care Team Providers Care Tray Casting Machine Operator Name Role Phone Elina Mendez MD Primary Care Provider Ifrah jiang [facility], Pcp Primary Care Provider Nathen mueller Encounter Details Date Type Department Care Team Description 05/05/2019 [facility] Medical Records [address] [place] [address] Social History Tobacco Use Types Packs/Day Years [...] on filedocumented in this encounter Care Teams Tray Casting Machine Operator Relationship Specialty Start Date End Date Elina Mendez MD PCP - General Internal Medicine 07/21/20 05/17/21 [facility], Pcp PCP - General Internal Medicine 05/18/21 documented as of this encounter
--- OUTSIDE RECORDS SUMMARY | 2024-08-19 15:23 | XMS_ITS | Encounter Summary ---
[facility] Address [address] [place] [address] Care Team Providers Care Clerk Rating Name Role Phone Elina Mendez MD Primary Care Provider Ifrah jiang [facility], Pcp Primary Care Provider Nathen mueller Encounter Details Date Type Department Care Team Description 03/24/2019 Cable Cutter And Swager Report Medical Records [address] [place] [address] Juan Manuel Brown MD Social History Tobacco [...] on filedocumented in this encounter Care Teams Clerk Rating Relationship Specialty Start Date End Date Elina Mendez MD PCP - General Internal Medicine 07/21/20 05/17/21 [facility], Pcp PCP - General Internal Medicine 05/18/21 documented as of this encounter
--- OUTSIDE RECORDS SUMMARY | 2024-08-19 15:23 | XMS_ITS | Encounter Summary ---
[facility] Address [address] [place] [address] Care Team Providers Care Supervisor Warping Department Name Role Phone Elina Mendez MD Primary Care Provider Ifrah Bonilla, Pcp Primary Care Provider Nathen mueller Encounter Details Date Type Department Care Team Description 11/29/2018 [facility] Controlled Substance Contract Medical Records [address] [place] [address] Abstract, Provider Social History Tobacco Use Types [...] filedocumented in this encounter Care Teams Supervisor Warping Department Relationship Specialty Start Date End Date Elina Mendez MD PCP - General Internal Medicine 07/21/20 05/17/21 [facility], Pcp PCP - General Internal Medicine 05/18/21 documented as of this encounter
--- OUTSIDE RECORDS SUMMARY | 2024-08-19 15:23 | XMS_ITS | Encounter Summary ---
[facility] Address [address] [place] [address] Care Team Providers Care Furniture Finisher Helper Name Role Phone Elina Mendez MD Primary Care Provider Ifrah jiang [facility], Pcp Primary Care Provider Nathen mueller Encounter Details Date Type Department Care Team Description 08/16/2017 [facility] Medical Records [address] [place] [address] Abstract, Provider Social History Tobacco Use Types [...] on filedocumented in this encounter Care Teams Furniture Finisher Helper Relationship Specialty Start Date End Date Elina Mendez MD PCP - General Internal Medicine 07/21/20 05/17/21 [facility], Pcp PCP - General Internal Medicine 05/18/21 documented as of this encounter
--- OUTSIDE RECORDS SUMMARY | 2024-08-19 15:23 | XMS_ITS | Encounter Summary ---
[facility] Address [address] [place] [address] Care Team Providers Care Valve Repairer Reclamation Name Role Phone Elina Mendez MD Primary Care Provider Ifrah jiang [facility], Pcp Primary Care Provider aNthen mueller Encounter Details Date Type Department Care Team Description 12/02/2015 [employer]TH GRADE TEACHER/[employer] Report Medical Records [address] [place] [address] Elina Mendez MD Social History Tobacco Use [...] on filedocumented in this encounter Care Teams Valve Repairer Reclamation Relationship Specialty Start Date End Date Elina Mendez MD PCP - General Internal Medicine 07/21/20 05/17/21 [facility], Pcp PCP - General Internal Medicine 05/18/21 documented as of this encounter
--- OUTSIDE RECORDS SUMMARY | 2024-08-19 15:23 | XMS_ITS | Encounter Summary ---
[facility] Address [address] [place] [address] Care Team Providers Care Wellness Ambassador Name Role Phone Elina Mendez MD Primary Care Provider Ifrah jiang [facility], Pcp Primary Care Provider Nathen mueller Encounter Details Date Type Department Care Team Description 07/10/2017 Switchboard Receptionist Report Medical Records [address] [place] [address] Trevor Bundy MD Social History Tobacco Use [...] filedocumented in this encounter Care Teams Wellness Ambassador Relationship Specialty Start Date End Date Elina Mendez MD PCP - General Internal Medicine 07/21/20 05/17/21 [facility], Pcp PCP - General Internal Medicine 05/18/21 documented as of this encounter
--- OUTSIDE RECORDS SUMMARY | 2024-08-19 15:23 | XMS_ITS | Encounter Summary ---
Author Organization [facility] Address [address] [place] [address] Care Team Providers Care Ampoule Inspector Name Role Phone Elina Mendez MD Primary Care Provider Ifrah jiang [facility], Pcp Primary Care Provider Nathen mueller Encounter Details Date Type Department Care Team Description 06/23/2020 [place] [facility] [address] [phone] Elina eMndez MD Social History Tobacco Use Types Packs/Day [...] on filedocumented in this encounter Care Teams Ampoule Inspector Relationship Specialty Start Date End Date Elina Mendez MD PCP - General Internal Medicine 07/21/20 05/17/21 [facility], Pcp PCP - General Internal Medicine 05/18/21 documented as of this encounter
--- OUTSIDE RECORDS SUMMARY | 2024-08-19 15:23 | XMS_ITS | Encounter Summary ---
[facility] Address [address] [place] [address] Care Team Providers Care Java Lead Engineer Name Role Phone Elina Mendez MD Primary Care Provider Ifrah Bonilla, Pcp Primary Care Provider Nathen mueller Encounter Details Date Type Department Care Team Description 07/23/2020 [facility] Medical Records [address] [place] [address] Abstract, Provider Social History Tobacco Use Types [...] filedocumented in this encounter Care Teams Java Lead Engineer Relationship Specialty Start Date End Date Elina Mendez MD PCP - General Internal Medicine 07/21/20 05/17/21 [facility], Pcp PCP - General Internal Medicine 05/18/21 documented as of this encounter
--- OUTSIDE RECORDS SUMMARY | 2024-08-19 15:23 | XMS_ITS | Encounter Summary ---
[facility] Address [address] [place] [address] Care Team Providers Care Drop Hammer Pile Driver Operator Name Role Phone Elina Mendez MD [facility] Reason for Visit * Reason Comments E-prescribe Rx Request Encounter Details Date Type Department Care Team Description 07/15/2019 Refill Medicine/Pediatrics - [address] [phone] Karen Krueger PA-C E-prescribe Rx Request Social [...] BASIC $30/$40 [place] / Product Type: PPO [id number] documented in this encounter Plan of Treatment Not on file documented as of this encounter Visit Diagnoses Not on filedocumented in this encounter Care Teams Drop Hammer Pile Driver Operator Relationship Specialty Start Date End Date Elina Mendez MD PCP - General Internal Medicine 07/21/20 [facility] 05/18/21 documented as of this encounter
--- OUTSIDE RECORDS SUMMARY | 2024-08-19 15:23 | XMS_ITS | Encounter Summary ---
Author Organization [facility] [employer] [facility] Address [address] [place] [address] Care Team Providers Care Loader Machine Name Role Phone Elina Mendez MD Primary Care Provider Ifrah Bonilla, Pcp Primary Care Provider Nathen mueller Encounter Details Date Type Department Care Team Description 06/18/2018 Walk In Clinic Visit Medical Records [address] [place] [address] [place], [facility] [address] [place] [phone] Social History Tobacco Use Types Packs/Day Years [...] on filedocumented in this encounter Care Teams Loader Machine Relationship Specialty Start Date End Date Elina Mendez MD PCP - General Internal Medicine 07/21/20 05/17/21 Irene, Pcp PCP - General Internal Medicine 05/18/21 documented as of this encounter
--- OUTSIDE RECORDS SUMMARY | 2024-08-19 15:24 | XMS_ITS | Clinical Summary ---
Author Organization [facility] Address [address] [place] [address] Care Team Providers Care Weeder Thinner Name Role Phone [facility], Pcp Primary Care [...] HEPATITIS C SCREENING Completed 07/20/2014 Care Teams Weeder Thinner Relationship Specialty Start Date End Date [facility], Pcp PCP - General Internal Medicine 05/18/21
[2024-08-19 19:05] LABS: Alanine Aminotransferase 29 U/L (0-31); Aspartate Amino Transferase 27 U/L (5-31); Uric Acid 4.4 mg/dL (2.4-5.7)
== END 2024-08-19 11:02 | disposition home or self-care (01) ==
LOC: HO.HKASLDS 11:01
PROVIDERS: PCP Internal Medicine; Visit Provider Internal Medicine Rheumatology
DX: E79.0 Hyperuricemia without signs of inflammatory arthritis and tophaceous disease (principal); M21.611 Bunion of right foot; M21.612 Bunion of left foot
CPT/HCPCS: 36415; 84450; 84460; 84550

== ENCOUNTER 2024-08-19 11:01 | Outpatient (AMB) | payer BC, SELFPAY ==
[2024-08-19 11:03] VITALS: BP 130/90; PULSE 91; O2SAT 99; BMI 30.6
--- NOTE | 2024-08-19 11:03 | A.OFFVIS_ITS ---
Vital Signs 08/19/24 11:03 Height 5 ft 6 in Weight 189 lb 13.088 oz BMI 30.6 BP 130/90 H Blood Pressure Location Lt brachial Position Sitting Pulse 91 Pulse Source Pulse Oximeter Pulse Oximetry (%) 99 Oxygen Delivery Method Room Air Intake Visit Reasons: Bl foot pain/internal ref Intake Note: Patient presents today for fibromyalgia. Pt states that her big oe bone is starting to protrude and are very sore she states pcp allopurinol 100mg but she states that it is not working. Allergies erythromycin base Allergy (Severe, Verified 08/19/24 11:07) Abdominal Pain amoxicillin Allergy (Intermediate, Verified 08/19/24 11:07) Rash codeine Allergy (Unknown, Verified 08/19/24 11:07) Back Pain metronidazole [From Flagyl] Allergy (Unknown, Verified 08/19/24 11:07) Unknown povidone-iodine [From Betadine] Allergy (Unknown, Verified 08/19/24 11:07) Rash sulfamethoxazole [From Bactrim] Allergy (Unknown, Verified 08/19/24 11:07) Rash trimethoprim [From Bactrim] Allergy (Unknown, Verified 08/19/24 11:07) Rash cephalexin [From Keflex] Allergy (Verified 08/19/24 11:07) throat closing shellfish Allergy (Unknown, Uncoded 07/15/24 09:14) skin reaction HPI HPI Bl foot pain/internal ref: Details: In December/january she developed pain and erythema in bilateral 1st toes. She noticed then that there was bony protrusion of her bilateral 1st MTPs. Her whole toe was not swollen. She saw PCP in April due to constant pain who diagnosed patient with gout and started allopurinol 100 mg daily. She has not noted any change since being on allopurinol. She experiences pain when she flexes her toes. Pain is constant. It is relieved when she is wearing her hiking boots at work. She changes her shoes every 3-4 months. 3 weeks ago she was on prednisone 10 day course for bronchitis, which resolved her pain in her foot. She reports that her pain all over resolved. When she touches her fingers in her PIP she notices pain. No pain in her hands with activity. She has no functional limitation with the pain. She wears slippers at home but prefers to be barefoot. Hikes 2-4 times a week with weather improving. Denies triggers associated with onset of pain. She has been working on weight loss but has had a hard time losing weight on her own with healthy eating and exercise. She was on a medication for weight loss but insurance will not cover the cost of the medication and she has a 600 dollar monthly co-pay, which is unaffordable for patient. 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 She has had family history of arthritis likely degenerative etiology. She reports that a lot of her family members have . She has a brother that lives in [place] who has a lot of health conditions but they do not speak. No family history of gout. Past medical history of hyperthyroidism, shingles 2024, hyperlipidemia, hypertension, chest pain controlled on diltiazem, insomnia Medication list reviewed with patient. [facility] Surgical History History of esophagogastroduodenoscopy (EGD) Hx of resection of large bowel Hx of colonoscopy Family History Mother Lung cancer Colon cancer Father Stomach cancer Paternal Aunt Breast cancer Brother Autoimmune disorder Social History Housing: House Alcohol intake: current Patient Tobacco Use Status: Never used Tobacco e-Cigarette/Vaping Use: Never Used Second Hand Smoke Exposure: Yes (past) service: No Current occupational status: employed Current occupational exposures/hazards: No (past) Cognitive needs: No Hearing needs: No Vision needs: No Review of Systems Const All systems reviewed & are unremarkable except as noted in HPI and below Physical Exam Vital Signs: Last Vital Signs Pulse 91 08/19/24 11:03 BP 130/90 H 08/19/24 11:03 Pulse Ox 99 08/19/24 11:03 Oxygen Delivery Method Room Air 08/19/24 11:03 BMI result Body Mass Index 30.6 Const Other: General: Comfortable CVS: RRR Respiratory: clear to auscultation bilaterally. Good respiratory effort Skin: No lesions seen MSK: Tender 4th and 5th PIP, 3rd DIPJ of right hand. Tender left 2nd and 4th PIP. Normal range of motion of upper extremities and lower extremities. No synovitis. She has tenderness to palpate of bilateral 1st MTPs with erythema present. Bilateral hallux valgus deformity present. pes planus bilateral. She has bony hypertrophy of midfoot without tenderness. Valgus deformity of bilateral knees present. Assessment & Plan Assessment & Plan (1) Bilateral foot pain: Comment: Likely secondary to hallux valgus deformity. 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 We discussed further evaluation and conservative management. From her history, her clinical presentation is not consistent with classic acute gout attack. She has chronic pain localized to her bilateral 1st MTPs with hallux valgus deformity present. She had mild hyperuricemia at 6.5 with typical target if uric acid for gout being less than 6 in most cases. I will be checking uric acid level while she is on allopurinol 100 mg daily and I will consider discontinuing it after lab results are back with plan to monitor patient clinically for acute gout episode. Code(s): M79.671 - Pain in right foot; M79.672 - Pain in left foot Category: Medical Plan: X-rays bilateral feet ordered Wear supportive why footwear at work and at home with arch support We discussed considering podiatry referral for further treatment for pain from hallux valgus deformity with consideration of cortisone injection. Patient will think about it We discussed the importance of weight loss in contributing to reduce pain in weight bearing joints and progression of osteoarthritis. She has had difficulty losing weight with diet and exercise. I recommend PCP follow-up for consideration of alternative medications used for weight loss that would be covered by her insurance plan. Return to clinic in 1-2 months for results or sooner if she has acute on chronic joint pain and swelling for evaluation (2) Bilateral bunions: Code(s): M21.611 - Bunion of right foot; M21.612 - Bunion of left foot Category: Medical Plan: Discussed conservative management (3) Hyperuricemia: Comment: Uric acid was 6.5 04/2024 Code(s): E79.0 - Hyperuricemia without signs of inflammatory arthritis and tophaceous disease Category: Medical Plan: I am rechecking uric acid level on allopurinol 100 mg daily. I will consider discontinuing allopurinol after lab results are back and monitor patient clinically for gout (4) Pes planus of both feet: Code(s): M21.41 - Flat foot [pes planus] (acquired), right foot; M21.42 - Flat foot [pes planus] (acquired), left foot Category: Medical Plan: See above Orders: Orders XR foot LT min 3V Today E79.0 - Hyperuricemia without signs of inflammatory arthritis and tophaceous disease, M21.611 - Bunion of right foot, M21.612 - Bunion of left foot Alanine Aminotransferase Today E79.0 - Hyperuricemia without signs of inflammatory arthritis and tophaceous disease XR foot RT min 3V Today E79.0 - Hyperuricemia without signs of inflammatory arthritis and tophaceous disease, M21.611 - Bunion of right foot, M21.612 - Bunion of left foot Uric Acid Today E79.0 - Hyperuricemia without signs of inflammatory arthritis and tophaceous disease, M21.611 - Bunion of right foot, M21.612 - Bunion of left foot Aspartate Amino Transferase Today E79.0 - Hyperuricemia without signs of inflammatory arthritis and tophaceous disease Coding Level of Care Code New Pt Level 4 (02017) Diagnoses Bilateral foot pain M79.671; M79.672 Bilateral bunions M21.611; M21.612 Hyperuricemia E79.0 Pes planus of both feet M21.41; M21.42
--- OUTSIDE RECORDS SUMMARY | 2024-08-19 13:24 | XMS_ITS | Encounter Summary ---
[facility] Address [address] [place] [address] Care Team Providers Care Carpenter'S Helper Name Role Phone Elina Mendez MD Primary Care Provider Ifrah jiang [facility], Pcp Primary Care Provider Nathen mueller Encounter Details Date Type Department Care Team Description 05/03/2015 Cabin Worker Report Medical Records [address] [place] [address] Kelly Castillo NP Social History Tobacco Use [...] on filedocumented in this encounter Care Teams Carpenter'S Helper Relationship Specialty Start Date End Date Elina Mendez MD PCP - General Internal Medicine 07/21/20 05/17/21 Irene, Pcp PCP - General Internal Medicine 05/18/21 documented as of this encounter
--- OUTSIDE RECORDS SUMMARY | 2024-08-19 13:24 | XMS_ITS | Encounter Summary ---
[facility] Address [address] [place] [address] Care Team Providers Care Hydroblaster Name Role Phone Elina Mendez MD Primary Care Provider Ifrah jiang [facility], Pcp Primary Care Provider Nathen mueller Encounter Details Date Type Department Care Team Description 04/06/2015 Correctional Officer Sergeant Report Medical Records [address] [place] [address] Kelly Castillo NP Social History Tobacco Use [...] on filedocumented in this encounter Care Teams Hydroblaster Relationship Specialty Start Date End Date Elina Mendez MD PCP - General Internal Medicine 07/21/20 05/17/21 Irene, Pcp PCP - General Internal Medicine 05/18/21 documented as of this encounter
--- OUTSIDE RECORDS SUMMARY | 2024-08-19 13:24 | XMS_ITS | Encounter Summary ---
Author Organization [facility] Address [address] [place] [address] Care Team Providers Care Farm Reporter Name Role Phone Elina Mendez MD Primary Care Provider Ifrah [facility], Pcp Primary Care Provider Nathen mueller Encounter Details Date Type Department Care Team Description 11/22/2018 Pt. Non Urgent Medical Question Medicine/Pediatrics - [address] [phone] Elina Mendez MD Social History Tobacco Use [...] on filedocumented in this encounter Care Teams Farm Reporter Relationship Specialty Start Date End Date Elina Mendez MD PCP - General Internal Medicine 07/21/20 05/17/21 [facility], Pcp PCP - General Internal Medicine 05/18/21 documented as of this encounter
--- OUTSIDE RECORDS SUMMARY | 2024-08-19 13:24 | XMS_ITS | Encounter Summary ---
[facility] Address [address] [place] [address] Care Team Providers Care Wool Presser Name Role Phone Elina Mendez MD Primary Care Provider Ifrah jiang [facility], Pcp Primary Care Provider Nathen mueller Encounter Details Date Type Department Care Team Description 11/15/2017 Russian Rubber Report Medical Records [address] [place] [address] Juan Manuel Brown MD Social History Tobacco [...] on filedocumented in this encounter Care Teams Wool Presser Relationship Specialty Start Date End Date Elina Mendez MD PCP - General Internal Medicine 07/21/20 05/17/21 [facility], Pcp PCP - General Internal Medicine 05/18/21 documented as of this encounter
--- OUTSIDE RECORDS SUMMARY | 2024-08-19 13:24 | XMS_ITS | Encounter Summary ---
[facility] Address [address] [place] [address] Care Team Providers Care Safety Manager Name Role Phone Elina Mendez MD Primary Care Provider Ifrah jiang [facility], Pcp Primary Care Provider Nathen mueller Encounter Details Date Type Department Care Team Description 07/11/2016 Sugar Cane Planter Report Medical Records [address] [place] [address] Kelly Castillo NP Social History Tobacco Use [...] on filedocumented in this encounter Care Teams Safety Manager Relationship Specialty Start Date End Date Elina Mendez MD PCP - General Internal Medicine 07/21/20 05/17/21 Irene, Pcp PCP - General Internal Medicine 05/18/21 documented as of this encounter
--- OUTSIDE RECORDS SUMMARY | 2024-08-19 13:24 | XMS_ITS | Encounter Summary ---
[facility] Address [address] [place] [address] Care Team Providers Care Metal Window Frame Maker Name Role Phone Elina Mendez MD Primary Care Provider Ifrah Bonilla, Pcp Primary Care Provider Nathen mueller Encounter Details Date Type Department Care Team Description 11/13/2016 [place] Controlled Substance Contract Medical Records [address] [place] [address] Abstract, Provider Social History Tobacco Use Types [...] on filedocumented in this encounter Care Teams Metal Window Frame Maker Relationship Specialty Start Date End Date Elina Mendez MD PCP - General Internal Medicine 07/21/20 05/17/21 Irene, Pcp PCP - General Internal Medicine 05/18/21 documented as of this encounter
--- OUTSIDE RECORDS SUMMARY | 2024-08-19 13:24 | XMS_ITS | Encounter Summary ---
[facility] Address [address] [place] [address] Care Team Providers Care Inspector Of Dredging Name Role Phone Elina Mendez MD Primary Care Provider Ifrah Bonilla, Pcp Primary Care Provider Nathen mueller Encounter Details Date Type Department Care Team Description 11/29/2018 [place] Controlled Substance Contract Medical Records [address] [place] [address] Abstract, Provider Social History Tobacco Use Types [...] filedocumented in this encounter Care Teams Inspector Of Dredging Relationship Specialty Start Date End Date Elina Mendez MD PCP - General Internal Medicine 07/21/20 05/17/21 Irene, Pcp PCP - General Internal Medicine 05/18/21 documented as of this encounter
--- OUTSIDE RECORDS SUMMARY | 2024-08-19 13:24 | XMS_ITS | Encounter Summary ---
[facility] Address [address] [place] [address] Care Team Providers Care Bench Molder Apprentice Name Role Phone Bryan Vasquez MD Primary Care Provider Unavail able Elina Mendez MD Primary Care Provider Unavailmisty jiang [facility], Pcp Primary Care Provider Unavailabl e Encounter Details Date Type Department Care Team Description 01/24/2013 Cook House Laborer Report Medical Records [address] [place] [address] Social History Tobacco Use Types Packs/Day Years [...] in this encounter Care Teams Bench Molder Apprentice Relationship Specialty Start Date End Date Bryan Vasquez MD PCP - General 05/27/02 03/11/15 Elina Mendez MD PCP - General Internal Medicine 07/21/20 05/17/21 [facility], Pcp PCP - General Internal Medicine 05/18/21 documented as of this encounter
--- OUTSIDE RECORDS SUMMARY | 2024-08-19 13:24 | XMS_ITS | Encounter Summary ---
Author Organization [facility] Address [address] [place] [address] Care Team Providers Care Manager Med Surg Name Role Phone Elina Mendez MD Primary Care Provider [facility], Pcp [facility] Reason for Visit * Reason Comments E-prescribe Rx Request Encounter Details Date Type Department Care Team Description 01/14/2016 Refill Medicine/Pediatrics - [address] [phone] Elina Mendez MD E-prescribe Rx Request Social [...] BASIC $30/$40 [place] / Product Type: PPO [id number] documented in this encounter Plan of Treatment Not on file documented as of this encounter Visit Diagnoses Not on filedocumented in this encounter Care Teams Manager Med Surg Relationship Specialty Start Date End Date Elina Mendez MD PCP - General Internal Medicine 07/21/20 05/17/21 [facility], Pcp PCP - General Internal Medicine 05/18/21 documented as of this encounter
--- OUTSIDE RECORDS SUMMARY | 2024-08-19 13:24 | XMS_ITS | Encounter Summary ---
[facility] Address [address] [place] [address] Care Team Providers Care Manual Arts Teacher Name Role Phone Elina Mendez MD Primary Care Provider Ifrah Bonilla, Pcp Primary Care Provider Nathen mueller Encounter Details Date Type Department Care Team Description 11/13/2016 Release of Information Medical Records [address] [place] [phone] Abstract, Provider Social History Tobacco Use Types [...] on filedocumented in this encounter Care Teams Manual Arts Teacher Relationship Specialty Start Date End Date Elina Mendez MD PCP - General Internal Medicine 07/21/20 05/17/21 Irene, Pcp PCP - General Internal Medicine 05/18/21 documented as of this encounter
--- OUTSIDE RECORDS SUMMARY | 2024-08-19 13:24 | XMS_ITS | Encounter Summary ---
Author Organization [facility] Address [address] [place] [address] Care Team Providers Care Pick Out Hand Name Role Phone Elina Mendez MD Primary Care Provider Ifrah jiang [facility], Pcp Primary Care Provider Nathen mueller Encounter Details Date Type Department Care Team Description 11/15/2017 Bus Attendant Report Medical Records [address] [place] [address] Juan Manuel Brown MD Social History Tobacco [...] on filedocumented in this encounter Care Teams Pick Out Hand Relationship Specialty Start Date End Date Elina Mendez MD PCP - General Internal Medicine 07/21/20 05/17/21 [facility], Pcp PCP - General Internal Medicine 05/18/21 documented as of this encounter
--- OUTSIDE RECORDS SUMMARY | 2024-08-19 13:24 | XMS_ITS | Encounter Summary ---
Author Organization [facility] Address [address] [place] [address] Care Team Providers Care Drawing In Machine Tender Helper Name Role Phone Elina Mendez MD Primary Care Provider Ifrah jiang [facility], Pcp Primary Care Provider Nathen mueller Encounter Details Date Type Department Care Team Description 02/26/2018 Guard Captain Report Medical Records [address] [place] [address] Epi Jasmine MD Social History Tobacco Use [...] on filedocumented in this encounter Care Teams Drawing In Machine Tender Helper Relationship Specialty Start Date End Date Elina Mendez MD PCP - General Internal Medicine 07/21/20 05/17/21 [facility], Pcp PCP - General Internal Medicine 05/18/21 documented as of this encounter
--- OUTSIDE RECORDS SUMMARY | 2024-08-19 13:25 | XMS_ITS | Encounter Summary ---
[facility] Address [address] [place] [address] Care Team Providers Care Machine Assembler Supervisor Name Role Phone Elina Mendez MD Primary Care Provider Ifrah Bonilla, Pcp Primary Care Provider Nathen mueller Encounter Details Date Type Department Care Team Description 03/27/2017 Release of Information Medical Records [address] [place] [address] Abstract, Provider Social History Tobacco Use Types [...] filedocumented in this encounter Care Teams Machine Assembler Supervisor Relationship Specialty Start Date End Date Elina Mendez MD PCP - General Internal Medicine 07/21/20 05/17/21 [facility], Pcp PCP - General Internal Medicine 05/18/21 documented as of this encounter
--- OUTSIDE RECORDS SUMMARY | 2024-08-19 13:25 | XMS_ITS | Encounter Summary ---
Author Organization [employer] [facility] Address [address] [place] [address] Care Team Providers Care Dairy Helper Name Role Phone [facility], Pcp Primary Care Provider Unavailabl e Encounter Details Date Type Department Care Team Description 11/20/2023 Orders Only Medical Records [address] [place] [address] Garry Randhawa Social History Tobacco Use Types Packs/Day Years [...] Procedure Name Priority Date/Time Associated Diagnosis Comments OUTSIDE MAMMO Routine 10/11/2023 OUTSIDE MAMMO Routine 10/01/2023 documented in this encounter Results * OUTSIDE MAMMO (10/11/2023) Garry Randhawa RADIOLOGY * OUTSIDE MAMMO (10/01/2023) Garry Randhawa RADIOLOGY documented in this encounter Visit Diagnoses Not on filedocumented in this encounter Care Teams Dairy Helper Relationship Specialty Start Date End Date [facility], Pcp PCP - General Internal Medicine 05/18/21 documented as of this encounter
--- OUTSIDE RECORDS SUMMARY | 2024-08-19 13:25 | XMS_ITS | Encounter Summary ---
[facility] Organization [facility] Address [address] [place] [address] Care Team Providers Care Retail Sales Merchandiser Name Role Phone Elina Mendez MD Primary Care Provider Ifrah jiang [facility], Pcp Primary Care Provider Nathen mueller Encounter Details Date Type Department Care Team Description 03/15/2017 Cloth Picker Report Medical Records [address] [place] [address] Trevor Bundy MD Social History Tobacco Use [...] filedocumented in this encounter Care Teams Retail Sales Merchandiser Relationship Specialty Start Date End Date Elina Mendez MD PCP - General Internal Medicine 07/21/20 05/17/21 [facility], Pcp PCP - General Internal Medicine 05/18/21 documented as of this encounter
--- OUTSIDE RECORDS SUMMARY | 2024-08-19 13:25 | XMS_ITS | Encounter Summary ---
[facility] Address [address] [place] [address] Care Team Providers Care Physical Therapy Assistant Name Role Phone Bryan Vasquez MD Primary Care Provider Unavail able Elina Mendez MD Primary Care Provider Ifrah jiang [facility], Pcp Primary Care Provider Nathen mueller Encounter Details Date Type Department Care Team Description 02/19/2012 Pt. Referral Request [facility] MyChart [address] [place] [address] Md Edmar Social History Tobacco Use Types Packs/Day Years [...] on filedocumented in this encounter Care Teams Physical Therapy Assistant Relationship Specialty Start Date End Date Bryan Vasquez MD PCP - General 05/27/02 03/11/15 Elina Mendez MD PCP - General Internal Medicine 07/21/20 05/17/21 Irene, Pcp PCP - General Internal Medicine 05/18/21 documented as of this encounter
--- OUTSIDE RECORDS SUMMARY | 2024-08-19 13:25 | XMS_ITS | Encounter Summary ---
[facility] Organization [facility] Address [address] [place] [address] Care Team Providers Care Meter Repairer Name Role Phone Elina Mendez MD Primary Care Provider Ifrah Bonilla, Pcp Primary Care Provider Nathen mueller Encounter Details Date Type Department Care Team Description 07/23/2020 [facility] Medical Records [address] [place] [address] Abstract, Provider Social History Tobacco Use Types [...] on filedocumented in this encounter Care Teams Meter Repairer Relationship Specialty Start Date End Date Elina Mendez MD PCP - General Internal Medicine 07/21/20 05/17/21 Irene, Pcp PCP - General Internal Medicine 05/18/21 documented as of this encounter
--- OUTSIDE RECORDS SUMMARY | 2024-08-19 13:25 | XMS_ITS | Clinical Summary ---
Author Organization [facility] Address [address] [place] [address] Care Team Providers Care Campaign Management Specialist Name Role Phone Unavailable Primary Care Provider [...] age to complete this topic Meningococcal B Vaccine Aged Out No l onger eligible based on patient's age to complete [...]
--- OUTSIDE RECORDS SUMMARY | 2024-08-19 13:25 | XMS_ITS | Encounter Summary ---
Author Organization [facility] Address [address] [place] [address] Care Team Providers Care Farm Equipment Assembler Name Role Phone Bryan Vasquez MD Primary Care Provider Unavail able Elina Mendez MD Primary Care Provider Ifrah jiang [facility], Pcp Primary Care Provider Unavailyesenia e Encounter Details Date Type Department Care Team Description 08/20/2014 Release of Information Medical Records [address] [place] [address] Abstract, Provider Social History Tobacco Use Types [...] filedocumented in this encounter Care Teams Farm Equipment Assembler Relationship Specialty Start Date End Date Bryan Vasquez MD PCP - General 05/27/02 03/11/15 Elina Mendez MD PCP - General Internal Medicine 07/21/20 05/17/21 [facility], Pcp PCP - General Internal Medicine 05/18/21 documented as of this encounter
--- OUTSIDE RECORDS SUMMARY | 2024-08-19 13:25 | XMS_ITS | Encounter Summary ---
Author Organization [facility] Address [address] [place] [address] Care Team Providers Care Liaison Planner Name Role Phone Bryan Vasquez MD Primary Care Provider Unavail able Elina Mendez MD Primary Care Provider Ifrah jiang [facility], Pcp Primary Care [facility] Encounter Details Date Type Department Care Team Description 11/02/2011 Controlled Substance Contract with Plan Medical Records [address] [place] [address] Abstract, Provider Social History Tobacco Use Types [...] on filedocumented in this encounter Care Teams Liaison Planner Relationship Specialty Start Date End Date Bryan Vasquez MD PCP - General 05/27/02 03/11/15 Elina Mendez MD PCP - General Internal Medicine 07/21/20 05/17/21 [facility], Pcp PCP - General Internal Medicine 05/18/21 documented as of this encounter
--- OUTSIDE RECORDS SUMMARY | 2024-08-19 13:25 | XMS_ITS | Encounter Summary ---
[facility] Address [address] [place] [address] Care Team Providers Care Efficiency Expert Name Role Phone Bryan Vasquez MD Primary Care Provider Unavail able Elina Mendez MD Primary Care Provider Ifrah jiang [facility], Pcp Primary [facility] Encounter Details Date Type Department Care Team Description 12/11/2013 Sales And Leasing Consultant Report Medical Records [address] [place] [address] Juan Manuel Brown MD Social History Tobacco [...] on filedocumented in this encounter Care Teams Efficiency Expert Relationship Specialty Start Date End Date Bryan Vasquez MD PCP - General 05/27/02 03/11/15 Elina Mendez MD PCP - General Internal Medicine 07/21/20 05/17/21 [facility], Pcp PCP - General Internal Medicine 05/18/21 documented as of this encounter
--- OUTSIDE RECORDS SUMMARY | 2024-08-19 13:25 | XMS_ITS | Encounter Summary ---
[facility] Organization [facility] Address [address] [place] [address] Care Team Providers Care Renal Case Manager Name Role Phone Bryan Vasquez MD Primary Care Provider Unavail able Elina Mendez MD Primary Care Provider Ifrah jiang [facility], Pcp Primary Care Provider Unavailabl e Encounter Details Date Type Department Care Team Description 07/27/2014 Transfer Records Medical Records [address] [place] [address] Abstract, Provider Social History Tobacco Use Types [...] on filedocumented in this encounter Care Teams Renal Case Manager Relationship Specialty Start Date End Date Bryan Vasquez MD PCP - General 05/27/02 03/11/15 Elina Mendez MD PCP - General Internal Medicine 07/21/20 05/17/21 [facility], Pcp PCP - General Internal Medicine 05/18/21 documented as of this encounter
--- OUTSIDE RECORDS SUMMARY | 2024-08-19 13:25 | XMS_ITS | Encounter Summary ---
Author Organization [facility] Address [address] [place] [address] Care Team Providers Care Vice President Corporate Communications Name Role Phone Elina Mendez MD Primary Care Provider Ifrah jiang [facility], Pcp Primary Care Provider Nathen mueller Encounter Details Date Type Department Care Team Description 03/24/2019 Clay Modeler Report Medical Records [address] [place] [address] Juan Manuel Brown MD Social History Tobacco [...] on filedocumented in this encounter Care Teams Vice President Corporate Communications Relationship Specialty Start Date End Date Elina Mendez MD PCP - General Internal Medicine 07/21/20 05/17/21 [facility], Pcp PCP - General Internal Medicine 05/18/21 documented as of this encounter
--- OUTSIDE RECORDS SUMMARY | 2024-08-19 13:25 | XMS_ITS | Continuity of Care Document ---
Author Organization [facility] Address [address] [facility] [place] [address]- Care Team Providers Care Student Services Counselor Name Role Phone Hal ZAIDI, Elina Ingram Primary Care Physician [phone] Encounter 08/08/24 - 08/15/24 [facility] [address] [facility] [place] [address]- Attending Physician: Samina Hernandez MD Admitting Physician: Samina Hernandez MD Referring Physician: Samina Hernandez MD Encounter Type: OutPatient One Time Allergies, Adverse Reactions, Alerts Substance Criticality Severity Reaction Reaction Severity Status codeine BACK PAIN PER PT Act danita erythromycin SEVERE ABD PAIN AND DISCOMFORT Active Flagyl Active Betadine SKIN REACTION Active iodine Active iodinated radiocontrast dyes Active shellfish BREATHING PROBL EMS, SKIN REACTION Active Keflex makes throat fe el like it is closing Active Bactrim SKIN RASH Active Immunizations Given and Recorded Vaccine Date Status Refusal Reason zoster vaccine, inactivated 12/08/22 Recorded zoster vaccine, inactivated 09/15/22 Recorded pneumococcal 20-valent conjugate vaccine 09/15/22 Recorded [id number] bivalent booster vax 02/09/22 Recorded influenza virus [...] AM EST, Route to Pharmacy Electronically, [facility]/pharmacy #[id number], 165, cm, 06/05/23 11:37:00 EST, Height Start Date: 06/06/23 Status: Ordered Quantity: 90.0 Unit: tablet Repeat number: 1 Dilt-XR 120 mg/24 hours oral capsule, extended release 1 capsule = 120 mg, By Mouth, Daily, # 90 capsule, 3 Refills, Maintenance, 06/04/24 2:09:00 PM EST, ER Capsule, [facility]/pharmacy #[id number], Partial fill upon patient request if [...] Refills, Maintenance, 06/25/24 10:49:00 AM EST, Tablet, [facility]/pharmacy #[id number], Partial fill upon patient request if [...] Refills, Maintenance, 09/27/22 2:24:00 PM EDT, [facility] STORE [id number], 165, cm, 08/09/22 14:42:00 EDT, Height Start Date: 09/27/22 Status: Ordered Quantity: 12.0 Unit: each Repeat number: 1 gabapentin 100 mg oral capsule 100 mg, 1, capsule, By Mouth, 3 times a day, # 270 capsule, Refills 3, Tot. Refills 3, Maintenance,04/04/22 8:26:00 AM EST, Route to Pharmacy Electronically, [facility]/pharmacy #[id number], Partial fill upon patient request if the prescription is for a schedule II opioid drug., 165, cm, 12/08/21 8:40:00 EDT, H eight Start Date: 04/04/22 Stop Date: 03/30/23 Status: Ordered Quantity: 270.0 Unit: capsule Repeat number: 4 levothyroxine 0.05 mg oral tablet 1 tablet = 50 mcg, By Mouth, Daily, # 90 tablet, 1 Refills, Maintenance, 06/29/23 8:55:00 AM EST, Tablet, [facility]/pharmacy #[id number], Partial fill upon patient request if the prescription is for a schedule IIopioid drug., 165, cm, 06/27/23 12:58:00 EST, Height, 81.7, kg, 06/27/23 12:58:00 EST, Dry Weight Start Date: 06/29/23 Status: Ordered Quantity: 90.0 Unit: tablet Repeat number: 2 montelukast 10 mg oral tablet 1, tablet, By Mouth, Daily, # 90 tablet, Refills 1, Maintenance, 04/23/23 10:15:00 AM EST, Route toPharmacy Electronically, [id number], 165, cm, 04/09/23 11:41:00 EST, Height Start [...] bite Confirmed Active Vaginal discharge Confirmed Active Results Radiology Reports * Exam Date Time Procedure Performing Provider Status 08/08/24 11:[address] Heart W/O Dye Alicia Chen dino; Auth (Verified) Notes: (CT Heart W/O Dye Tone Eval) Reason For Exam: CAD Screening, High CAD Risk, Not Treadmill Candidate;Other: RESULT: CT Heart W/O Dye Tone Eval CT Heart W/O Dye Tone Eval INDICATION: Reason: Other:; CAD Screening, High CAD Risk, Not Treadmill Candidate; Clinical Question(s): Other:. Female of age 59 , race White COMPARISON: None TECHNIQUE: Coronary artery Calcium Scoring. After a localizing wardrobe supervisor image was obtained, an ECG-gated noncontrast exam was obtained of the heart in late diastole. The region of interest was limited to the heart in order to optimize image quality. Weight-based protocol using automatic tube modulation was used to optimize exposure parameters. A Silent Circle 64 scanner was used, with Agatston scoring performed using [employer]) web-based software. This procedure is not being performed on thispatient for preoperative evaluation for low-risk surgery within 30 days. CTDIvol Body: 7.52 mGy, DLP Body: 105 mGy*cm. FINDINGS: Coronary Calcium Scoring Summary: Left Main: Score 0 . LAD: Score 0 . Circumflex: Score 0 . Right: Score 0 . Ramus: Score 0 . TOTAL: Score 0 . Non-coronary Findings: Mild scattered atelectasis. Unremarkable chest wall. Normal size heart. Normal size aorta. No adenopathy. Upper abdomen is unremarkable. No acute bony findings. IMPRESSION: The Agatston coronary calcium score is 0 . WSN: [id number] Ordering Physician: Samina Hernandez Dictated By: Eileen Jones MD Dictated Date/Time: 08/12/24 9:37 pm Reviewed By: Eileen Jones MD Signed By: Eileen Jones MD Signed Date/Time: 08/12/24 9:37 pm Transcribed By: JOHN Transcribed Date/Time: 08/12/24 9:35 pm Social History Social History Type Response Smoking Status Never (less than 100 in lifetime) entered on: 06/16/19 Sex Sex Representation Female (finding) Patient Care team information Care Team Personnel Name: Roxi Pal Position: [facility] Outreach Member Role: Lifetime Consulting Physician Name: Quin Mitchell RN Position: S RN Member Role: Primary Care Nurse Name: Chante Pimentel RN Position: [facility] RN Member Role: Primary Care Nurse Name: Hal ZAIDI, Elina Ingram Position: Reference Physician Member Role: PCP Address: [address] [place] [id number] Telecom: Care Team Related Persons Name: ELOY STONE Insurance Providers Guarantor name: [facility] [employer] [facility] Information #: 1 Payer: [employer]: ADVANCED PAYMENT EXAM Member Number: [id number] Policy Number: NA Group Number: NA Health Plan Information #: 2 Payer: [employer]: ADVANCED PAYMENT EXAM Member Number: [id number] Policy Number: NA Group Number: NA
--- OUTSIDE RECORDS SUMMARY | 2024-08-19 13:25 | XMS_ITS | Encounter Summary ---
Author [facility] Address [address] [place] [address] Care Team Providers Care Wellness Program Coordinator Name Role Phone Bryan Vasquez MD Primary Care Provider Unavail able Elina Mendez MD Primary Care Provider Ifrah jiang [facility], Pcp Primary Care Provider Unavailyesenia e Encounter Details Date Type Department Care Team Description 02/19/2014 Hospital Medical Records [address] [place] [address] Micah Pulido MD Social History Tobacco Use [...] on filedocumented in this encounter Care Teams Wellness Program Coordinator Relationship Specialty Start Date End Date Bryan Vasquez MD PCP - General 05/27/02 03/11/15 Elina Mendez MD PCP - General Internal Medicine 07/21/20 05/17/21 [facility], Pcp PCP - General Internal Medicine 05/18/21 documented as of this encounter
--- OUTSIDE RECORDS SUMMARY | 2024-08-19 13:25 | XMS_ITS | Encounter Summary ---
Author Organization [facility] Address [address] [place] [address] Care Team Providers Care Veneer Drier Tailer Name Role Phone Elina Mendez MD Primary Care Provider Ifrah jiang [facility], Pcp Primary Care Provider Nathen mueller Encounter Details Date Type Department Care Team Description 06/23/2020 [facility] [address] [address] Elina Mendez MD Social History Tobacco Use [...] on filedocumented in this encounter Care Teams Veneer Drier Tailer Relationship Specialty Start Date End Date Elina Mendez MD PCP - General Internal Medicine 07/21/20 05/17/21 [facility], Pcp PCP - General Internal Medicine 05/18/21 documented as of this encounter
--- OUTSIDE RECORDS SUMMARY | 2024-08-19 13:25 | XMS_ITS | Encounter Summary ---
Author Organization [facility] Address [address] [place] [address] Care Team Providers Care Bladder Cleaner Name Role Phone Elina Mendez MD Primary Care Provider Ifrah jiang [facility], Pcp Primary Care Provider Nathen mueller Encounter Details Date Type Department Care Team Description 06/01/2020 Transfer Records Medical Records [address] [place] [address] Abstract, Provider Social History Tobacco Use Types [...] on filedocumented in this encounter Care Teams Bladder Cleaner Relationship Specialty Start Date End Date Elina Mendez MD PCP - General Internal Medicine 07/21/20 05/17/21 [facility], Pcp PCP - General Internal Medicine 05/18/21 documented as of this encounter
--- OUTSIDE RECORDS SUMMARY | 2024-08-19 13:25 | XMS_ITS | Encounter Summary ---
[facility] Organization [facility] Address [address] [place] [address] Care Team Providers Care Factory Process Workers Name Role Phone Bryan Vasquez MD Primary Care Provider Unavail able Elnia Mendez MD Primary Care Provider Ifrah jiang [facility], Pcp Primary Care Provider Unavailyeseina e Encounter Details Date Type Department Care Team Description 02/19/2014 Hospital Medical Records [address] [place] [address] Micah Pulido MD Social History Tobacco Use [...] on filedocumented in this encounter Care Teams Factory Process Workers Relationship Specialty Start Date End Date Bryan Vasquez MD PCP - General 05/27/02 03/11/15 Elina Mendez MD PCP - General Internal Medicine 07/21/20 05/17/21 [facility], Pcp PCP - General Internal Medicine 05/18/21 documented as of this encounter
--- OUTSIDE RECORDS SUMMARY | 2024-08-19 13:25 | XMS_ITS | Encounter Summary ---
Author Organization [facility] Address [address] [place] [address] Care Team Providers Care Shoeblack Name Role Phone Elina Mendez MD Primary Care Provider Ifrah jiang [facility], Pcp Primary Care Provider Nathen mueller Encounter Details Date Type Department Care Team Description 08/16/2017 [facility] Medical Records [address] [place] [address] Abstract, Provider Social History Tobacco Use Types [...] on filedocumented in this encounter Care Teams Shoeblack Relationship Specialty Start Date End Date Elina Mendez MD PCP - General Internal Medicine 07/21/20 05/17/21 [facility], Pcp PCP - General Internal Medicine 05/18/21 documented as of this encounter
--- OUTSIDE RECORDS SUMMARY | 2024-08-19 13:25 | XMS_ITS | Encounter Summary ---
Author Organization [facility] Address [address] [place] [address] Care Team Providers Care Rod Placer Name Role Phone Bryan Vasquez MD Primary Care Provider Unavail able Elina Mendez MD Primary Care Provider Ifrah jiang [facility], Pcp Primary Care Provider Unavailabl e Encounter Details Date Type Department Care Team Description 09/24/2011 Release of Information Medical Records [address] [place] [address] Abstract, Provider Social History Tobacco Use Types [...] on filedocumented in this encounter Care Teams Rod Placer Relationship Specialty Start Date End Date Bryan Vasquez MD PCP - General 05/27/02 03/11/15 Elina Mendez MD PCP - General Internal Medicine 07/21/20 05/17/21 [facility], Pcp PCP - General Internal Medicine 05/18/21 documented as of this encounter
--- OUTSIDE RECORDS SUMMARY | 2024-08-19 13:25 | XMS_ITS | Encounter Summary ---
[facility] Address [address] [place] [address] Care Team Providers Care Pricing Specialist Name Role Phone Bryan Vasquez MD Primary Care Provider Unavail able Elina Mendez MD Primary Care Provider Unavaila deidre [facility], Pcp Primary Care Provider [facility] Encounter Details Date Type Department Care Team Description 1966 Edge Sawyer Report Medical Records [address] [place] [address] Epi Jasmine MD Social History Tobacco Use Types Packs/Day Years Used Date Smoking Tobacco: Never Assessed Sex Assigned at Date Recorded Not on file documented as of this encounter Plan of Treatment Not on file documented as of this encounter Visit Diagnoses Not on filedocumented in this encounter Care Teams Pricing Specialist Relationship Specialty Start Date End Date Bryan Vasquez MD PCP - General 05/27/02 03/11/15 Elina Mendez MD PCP - General Internal Medicine 07/21/20 05/17/21 [facility], Pcp PCP - General Internal Medicine 05/18/21 documented as of this encounter
--- OUTSIDE RECORDS SUMMARY | 2024-08-19 13:25 | XMS_ITS | Clinical Summary ---
Author Organization [facility] Address [address] [place] [address] Care Team Providers Care Systems Testing Laboratory Technician Name Role Phone Community, Pcp Primary Care [...] (2022- 4 season) 2024 02/01/2021, 08/08/2020, 07/18/2020 BMI CHECK/ADVISE 05/14/2024 09/05/2019, 04/2019, 05/31/2018, Additional history exists MAMMOGRAM 10/10/2024 10/11/2023, 09/12, 12/15/2019, Additional history exists INFLUENZA (Season Ended) 2025 021, 01/13/2020 (External Completion of Vaccination per patient), 01/13/2020, Additional history exists CHOLESTEROL SCREENING 06/03/2025 06/03/2020 , 11/22/2018, 05/31/2018, Additional history exists DTAP/TDAP/TD (3 - Td or Tdap) 11/22/2028, 06/01/2008, 05/14/1997 PNEUMOCOCCAL VACCINE FOR HIG H RISK PATIENTS (#1) 2031 HEPATITIS C SCREENING Completed 07/20/2014 Care Teams Systems Testing Laboratory Technician Relationship Specialty Start Date End Date Community, Pcp PCP - General Internal Medicine 05/18/21
--- OUTSIDE RECORDS SUMMARY | 2024-08-19 13:25 | XMS_ITS | Encounter Summary ---
[facility] Organization [facility] Address [address] [place] [address] Care Team Providers Care Gasket Notcher Name Role Phone Bryan Vasquez MD Primary Care Provider Unavail able Elina Mendez MD Primary Care Provider Ifrah jiang [facility], Pcp Primary [facility] Encounter Details Date Type Department Care Team Description 01/20/2014 Platform Power Technician Report Medical Records [address] [place] [address] Juan Manuel Brown MD Social History Tobacco [...] on filedocumented in this encounter Care Teams Gasket Notcher Relationship Specialty Start Date End Date Bryan Vasquez MD PCP - General 05/27/02 03/11/15 Elina Mendez MD PCP - General Internal Medicine 07/21/20 05/17/21 [facility], Pcp PCP - General Internal Medicine 05/18/21 documented as of this encounter
--- OUTSIDE RECORDS SUMMARY | 2024-08-19 13:25 | XMS_ITS | Encounter Summary ---
Author Organization [facility] Address [address] [place] [address] Care Team Providers Care Garbage Truck Dispatcher Name Role Phone Elina Mendez MD [facility] Reason for Visit * Reason Comments E-prescribe Rx Request Encounter Details Date Type Department Care Team Description 07/15/2019 Refill Medicine/Pediatrics - [address] [phone] Karen Krueger PA-C E-prescribe Rx Request Social [...] BASIC $30/$40 [place] / Product Type: PPO [id number] documented in this encounter Plan of Treatment Not on file documented as of this encounter Visit Diagnoses Not on filedocumented in this encounter Care Teams Garbage Truck Dispatcher Relationship Specialty Start Date End Date Elina Mendez MD PCP - General Internal Medicine 07/21/20 [facility] - [facility] 05/18/21 documented as of this encounter
--- OUTSIDE RECORDS SUMMARY | 2024-08-19 13:25 | XMS_ITS | Encounter Summary ---
[facility] Organization [facility] Address [address] [place] [address] Care Team Providers Care Web Services Professional Name Role Phone Bryan Vasquez MD Primary Care Provider Unavail able Elina Mendez MD Primary Care Provider Ifrah jiang [facility], Pcp Primary Care Provider Unavailyesenia e Encounter Details Date Type Department Care Team Description 02/19/2014 Hospital Medical Records [address] [place] [address] Micah Pulido MD Social History Tobacco Use [...] on filedocumented in this encounter Care Teams Web Services Professional Relationship Specialty Start Date End Date Bryan Vasquez MD PCP - General 05/27/02 03/11/15 Elnia Mendez MD PCP - General Internal Medicine 07/21/20 05/17/21 [facility], Pcp PCP - General Internal Medicine 05/18/21 documented as of this encounter
--- OUTSIDE RECORDS SUMMARY | 2024-08-19 13:25 | XMS_ITS | Encounter Summary ---
[facility] Organization [facility] Address [address] [place] [address] Care Team Providers Care Tax Professional Name Role Phone Elina Mendez MD Primary Care Provider Ifrah jiang [facility], Pcp Primary Care Provider Nathen mueller Encounter Details Date Type Department Care Team Description 03/24/2019 Government Instructor Report Medical Records [address] [place] [address] Juan Manuel Brown MD Social History Tobacco [...] on filedocumented in this encounter Care Teams Tax Professional Relationship Specialty Start Date End Date Elina Mendez MD PCP - General Internal Medicine 07/21/20 05/17/21 [facility], Pcp PCP - General Internal Medicine 05/18/21 documented as of this encounter
== END 2024-08-19 12:28 | disposition home or self-care (01) ==
PROVIDERS: PCP Internal Medicine; Visit Provider Internal Medicine Rheumatology
DX: M79.671 Pain in right foot (principal); M79.672 Pain in left foot; M21.611 Bunion of right foot; M21.612 Bunion of left foot; E79.0 Hyperuricemia without signs of inflammatory arthritis and tophaceous disease; M21.41 Flat foot [pes planus] (acquired), right foot; M21.42 Flat foot [pes planus] (acquired), left foot
CPT/HCPCS: 99204

== ENCOUNTER 2024-08-20 08:39 | Outpatient (REF) | payer BC, SELFPAY ==
--- NOTE | ~2024-08-20 | XR_ITS ---
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 FINDINGS: Six views of the bilateral feet are submitted. Osseous mineralization is normal. There is no fracture or dislocation. There is mild narrowing of the MTP joints of the bilateral great toes. There are no erosions. The remaining joint spaces are maintained. The soft tissues are unremarkable. XR/XR Foot Armen 3V IMPRESSION: Mild narrowing of the MTP joints of the bilateral great toes. Otherwise unremarkable examination of the bilateral feet. Electronically signed by: Javi Skinner MD 08/21/2024 08:26 AM EDT
--- NOTE | ~2024-08-20 | FL_ITS ---
EXAMINATION: XR FLUOROSCOPY ESOPHAGRAM. CLINICAL INFORMATION: Gastritis, unspecified. 59-year-old female complaining of GERD. Episodic chest pain. History of colonic resection. COMPARISON: None TECHNIQUE: Fluoroscopic air contrast upper GI examination was performed utilizing standard techniques with thin and thick barium and effervescent granules. Numerous spot images were obtained. Several fluoroscopic image hold cine sequences were also obtained. FINDINGS: UPPER GI SERIES: Lateral cine images of the oropharynx and hypopharynx demonstrate normal swallow mechanism with normal epiglottic inversion and soft palate elevation. No laryngeal penetration, glottic or subglottic aspiration identified. No nasopharyngeal reflux present. Hypopharyngeal structures appear normal without evidence of mass or diverticulum. There was no significant cricopharyngeal achalasia. Dual and single contrast images of the esophagus demonstrate normal caliber, contour, and mucosal pattern. No evidence of stricture, mass, or ulcerations identified. Esophageal peristalsis was normal. Small type I hiatus hernia. Mild gastroesophageal reflux noted during the course of the examination, to the level of the maria d. Dual contrast and single contrast images of the stomach demonstrated normal contour and rugal fold pattern without evidence of mass, ulceration, or mucosal abnormality. Contrast freely passed into the gastric antrum and duodenal bulb without delay. Single and air-contrast images of the duodenal bulb demonstrate no abnormality. The duodenal sweep has a normal appearance, course, and mucosal fold appearance. Cholecystectomy clips incidentally noted. FLUOROSCOPY TIME: 3 minutes, 1 second Number of Spot Images:10 Number of cines obtained: 14 DOSE AREA PRODUCT: 257.2 uGy-m2 (microgray-meter squared) FL/FL barium swallow with air IMPRESSION: 1. Small type I hiatus hernia. 2. Mild gastroesophageal reflux identified. 3. Remainder of the examination is normal. Electronically signed by: Osmin Salazar MD 08/20/2024 10:04 AM EDT
--- OUTSIDE RECORDS SUMMARY | 2024-08-20 08:56 | XMS_ITS | Clinical Summary ---
Author Organization [facility] Address [address] [place] [address] Care Team Providers Care Reference Archivist Name Role Phone Unavailable Primary Care Provider Unavailabl e Surgical History Surgery Date Site/Laterality Comments OTHER SURGICAL HISTORY 1992 PROCEDURE: OK RADIAL KERATOTOMY; COMMENT: x 6 HERNIA REPAIR 1990 PROCEDURE: REPAIR INGUINAL HERNIA; COMMENT: RT OTHER SURGICAL HISTORY 1990 PROCEDURE: LAPAROSCOPY PROCEDURE NEC; COMMENT: ENDOMETRIOSIS COLONOSCOPY 08/25/04 PROCEDURE: HISTORICAL COLONOSCOPY; COMMENT: normal with normal colonic bx (to evaluate diarrhea). COLONOSCOPY 11/16/2009 PROCEDURE: HISTORICAL COLONOSCOPY; COMMENT: no polyps; minimal diverticulosis ESOPHAGOGASTRODUODENOSCOPY 04/23/20 PROCEDURE: OK ESOPHAGOGASTRODUODENOSCOPY TRANSORAL DIAGNOSTIC; COMMENT: normal; not on PPI meds. CHOLECYSTECTOMY PROCEDURE: LAPAROSCOPY, CHOLECYSTECTOMY; COMMENT: Herve; [facility] COLONOSCOPY 2013 PROCEDURE: HISTORICAL COLONOSCOPY; COMMENT: No polyps. CERVICAL BIOPSY W/ LOOP ELECTRODE EXCISION PROCEDURE: OK CONIZATION CERVIX W/WO D&C RPR ELTRD EXC [...]
== END 2024-08-20 08:40 | disposition home or self-care (01) ==
LOC: HO.XRAY 08:39
PROVIDERS: PCP Internal Medicine; Visit Provider Internal Medicine
DX: K29.70 Gastritis, unspecified, without bleeding (principal); M21.611 Bunion of right foot; M21.612 Bunion of left foot; E79.0 Hyperuricemia without signs of inflammatory arthritis and tophaceous disease
CPT/HCPCS: 73630; 74221

== ENCOUNTER → 2024-08-20 08:40 | Outpatient (BNV) | payer BC, SELFPAY | PROVIDERS: PCP Internal Medicine; Visit Provider Radiology Diagnostic Radiology | DX: E79.0 Hyperuricemia without signs of inflammatory arthritis and tophaceous disease (principal) | CPT/HCPCS: 73630; 74221 ==

== ENCOUNTER 2024-09-02 08:55 | Day surgery (SDC) | payer BC, SELFPAY ==
[2024-08-28 14:09] VITALS: BMI 30.2
--- NOTE | 2024-08-29 08:52 | HO.ANESPROP2 ---
Documented by User: Tamie Ospina NP 08/29/24 08:54 HPI - Anesthesia Eval Consult details Narrative: 59yo F for Upper Endoscopy and Colonoscopy PMFSH Active Problems Active Problems: All Active Problems Pes planus of both feet (Acute) Hyperuricemia (Acute) Bilateral bunions (Acute) Respiratory infection (Acute) Abscess of perineum (Acute) Rash (Acute) Flu-like symptoms (Acute) Obesity (Acute) Family history of colon cancer (Acute) Family history of gastric cancer (Acute) Dyspepsia (Acute) Bilateral foot pain (Acute) Fundic gland polyps of stomach, benign (Acute) Gastritis (Acute) Hospital discharge follow-up (Acute) Abnormal EKG (Acute) Chest pain (Acute) Anaphylaxis (Acute) Enlarged thyroid (Acute) Shortness of breath (Acute) At high risk for breast cancer (Acute) Axillary lymphadenopathy (Acute) Mass of right breast (Acute) Hypothyroid (Acute) 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 (Acute) Diverticulitis (Acute) Asthma (Acute) Migraine (Acute) Insomnia (Acute) Hyperlipidemia (Acute) Hypertension (Acute) Past Medical History Medical History Encounter for cholecystectomy Hypothyroid Asthma Hyperlipidemia Hypertension Family History Family History Mother Lung cancer Colon cancer Father Stomach cancer Paternal Aunt Breast cancer Brother Autoimmune disorder Surgical History Surgical History History of gynecologic surgery History of skin surgery H/O hernia repair History of surgery on arm H/O eye surgery History of esophagogastroduodenoscopy (EGD) Hx of resection of large bowel Hx of colonoscopy Social History Social History Housing: House Are you a primary critical care clinical nurse specialist to a significant other at home: No Do you presently have visiting nurse or other home services: No Alcohol intake: current Alcohol intake frequency: holidays/special occasions only Patient Tobacco Use Status: Never used Tobacco e-Cigarette/Vaping Use: Never Used Second Hand Smoke Exposure: Yes (past) service: No Current occupational status: employed Current occupational exposures/hazards: No (past) Cognitive needs: No Hearing needs: No Vision needs: No Meds Allergies Allergy/AdvReac Type Severity Reaction Status Date / Time cephalexin [From Keflex] Allergy Severe Anaphylaxis Verified 09/02/24 09:31 erythromycin base Allergy Severe Abdominal Verified 09/02/24 09:31 Pain oxycodone [From Percocet] Allergy Severe Severe Verified 09/02/24 09:36 Back Pain/Pressure povidone-iodine Allergy Severe Rash Verified 09/02/24 09:31 [From Betadine] sulfamethoxazole Allergy Severe Rash/Hand Verified 09/02/24 09:31 [From Bactrim] Cramps trimethoprim [From Bactrim] Allergy Severe Rash/Hand Verified 09/02/24 09:31 Cramps acetaminophen [From Percocet] Allergy Intermediate Rash Verified 09/02/24 09:32 amoxicillin Allergy Intermediate Rash Verified 09/02/24 09:31 codeine Allergy Intermediate Severe Verified 09/02/24 09:36 Back Pain/Pressure iodine Allergy Intermediate SOB/Blister Verified 09/02/24 09:31 ing metronidazole [From Flagyl] Allergy Intermediate Anaphylaxis Verified 09/02/24 09:31 shellfish Allergy Intermediate SOB Uncoded 09/02/24 09:31 Home Medications ?Medication ?Instructions ?Recorded ?Confirmed ?Last Taken ?Type diltiazem HCl 180 mg 180 mg PO DAILY 05/05/24 09/02/24 09/02/24 History capsule,extended release 24 hr, controlled (DILT-XR) ezetimibe 10 mg tablet 10 mg PO DAILY 06/02/24 09/02/24 Unknown History lifitegrast 5 % eye drops in a 1 drp ophthalmic (eye) BID 06/02/24 09/02/24 Unknown History dropperette (Xiidra) Exam Height,Weight and Vital Signs: Height 5 ft 6 in Weight 84.822 kg Narrative Narrative: Exercise Stress 2023 Protocol: JOHN Max HR: 146 BPM 89% of Pred: 163 BPM Max BP: 180/080 mmHG Max Work Load: 7.0 METS Exercise stress test exercise 5 min 15 sec of John protocol achieving 89% MPHR, with mild to moderate SOB, no chest discomfort, without arrhtyhmias, with resting HTN - appropriate response, without EKG changes from baseline. Test reviewed with Dr. Schwartz. Assessment and Plan Assessment Anesthesia Assessment: Chart Reviewed Documented by User: Herb Streeter MD 09/03/24 14:35 [facility] Past Medical History Medical History Encounter for cholecystectomy Hypothyroid Asthma Hyperlipidemia Hypertension Family History Family History Mother Lung cancer Colon cancer Father Stomach cancer Paternal Aunt Breast cancer Brother Autoimmune disorder Family history of problems with anesthesia: No Surgical History Surgical History History of gynecologic surgery History of skin surgery H/O hernia repair History of surgery on arm H/O eye surgery History of esophagogastroduodenoscopy (EGD) Hx of resection of large bowel Hx of colonoscopy History of Problems with Anesthesia: No Social History Social History Housing: House Are you a primary critical care clinical nurse specialist to a significant other at home: No Do you presently have visiting nurse or other home services: No Alcohol intake: current Alcohol intake frequency: holidays/special occasions only Patient Tobacco Use Status: Never used Tobacco e-Cigarette/Vaping Use: Never Used Second Hand Smoke Exposure: Yes (past) service: No Current occupational status: employed Current occupational exposures/hazards: No (past) Cognitive needs: No Hearing needs: No Vision needs: No Meds Allergies Allergy/AdvReac Type Severity Reaction Status Date / Time cephalexin [From Keflex] Allergy Severe Anaphylaxis Verified 09/02/24 09:31 erythromycin base Allergy Severe Abdominal Verified 09/02/24 09:31 Pain oxycodone [From Percocet] Allergy Severe Severe Verified 09/02/24 09:36 Back Pain/Pressure povidone-iodine Allergy Severe Rash Verified 09/02/24 09:31 [From Betadine] sulfamethoxazole Allergy Severe Rash/Hand Verified 09/02/24 09:31 [From Bactrim] Cramps trimethoprim [From Bactrim] Allergy Severe Rash/Hand Verified 09/02/24 09:31 Cramps acetaminophen [From Percocet] Allergy Intermediate Rash Verified 09/02/24 09:32 amoxicillin Allergy Intermediate Rash Verified 09/02/24 09:31 codeine Allergy Intermediate Severe Verified 09/02/24 09:36 Back Pain/Pressure iodine Allergy Intermediate SOB/Blister Verified 09/02/24 09:31 ing metronidazole [From Flagyl] Allergy Intermediate Anaphylaxis Verified 09/02/24 09:31 shellfish Allergy Intermediate SOB Uncoded 09/02/24 09:31 Home Medications ?Medication ?Instructions ?Recorded ?Confirmed ?Last Taken ?Type diltiazem HCl 180 mg 180 mg PO DAILY 05/05/24 09/02/24 09/02/24 History capsule,extended release 24 hr, controlled (DILT-XR) ezetimibe 10 mg tablet 10 mg PO DAILY 06/02/24 09/02/24 Unknown History lifitegrast 5 % eye drops in a 1 drp ophthalmic (eye) BID 06/02/24 09/02/24 Unknown History dropperette (Xiidra) Exam Airway Mallampati Class: II TM Dist: >3cm Neck ROM: Full Assessment and Plan Assessment Anesthesia Assessment: Anesthesia Plan Discussed Final Anesthetic Review Family History of Problems with Anesthesia: No History of Problems with Anesthesia: No NPO: Yes ASA Class: III Final Preanesthetic Review: No Changes in Pt Med Stat, Meds/Allgs Chart Reviewed, Consent Obtained/Reviewed and Anes Risks/Benef Reviewed Patient Risk: Intermediate Procedure Risk: Low Anesthetic Plan Anesthetic Plan: MAC: Disposition: Standard PACU
[2024-09-02 09:40] VITALS: BP 148/82; PULSE 85; RESP 16; TEMP 36.5; O2SAT 99; BMI 30.3
--- NOTE | 2024-09-02 09:45 | MHC.SHP ---
Pre-Procedural Eval Section A - 24 Hr Update-Section A only Date of Service: 09/02/24 Section B - Complete if H&P > 30 days Chief Complaint: Gastritis, w/o bleeding,Epigastric pain, Details of Present Illness: Fam hx: Mother: CRC in her 50s Father: gastric ca in his 60s. Paternal aunt: breast ca PFSH Surgical History History of esophagogastroduodenoscopy (EGD) Hx of resection of large bowel Hx of colonoscopy Present Medications: see Short Stay Collaborative assessment Allergies: Allergies Allergy/AdvReac Type Severity Reaction Status Date / Time cephalexin [From Keflex] Allergy Severe Anaphylaxis Verified 09/02/24 09:31 erythromycin base Allergy Severe Abdominal Verified 09/02/24 09:31 Pain oxycodone [From Percocet] Allergy Severe Severe Verified 09/02/24 09:36 Back Pain/Pressure povidone-iodine Allergy Severe Rash Verified 09/02/24 09:31 [From Betadine] sulfamethoxazole Allergy Severe Rash/Hand Verified 09/02/24 09:31 [From Bactrim] Cramps trimethoprim [From Bactrim] Allergy Severe Rash/Hand Verified 09/02/24 09:31 Cramps acetaminophen [From Percocet] Allergy Intermediate Rash Verified 09/02/24 09:32 amoxicillin Allergy Intermediate Rash Verified 09/02/24 09:31 codeine Allergy Intermediate Severe Verified 09/02/24 09:36 Back Pain/Pressure iodine Allergy Intermediate SOB/Blister Verified 09/02/24 09:31 ing metronidazole [From Flagyl] Allergy Intermediate Anaphylaxis Verified 09/02/24 09:31 shellfish Allergy Intermediate SOB Uncoded 09/02/24 09:31 Review of Systems Review of Systems Comment: Ten point ROS negative Exam Exam Comment: Gen appear: No acute distress HEENT: no icterus Chest: No overt resp distress Abd: soft, nontender, nondistended Psych: Stable affect, answering questions appropriately Neuro: A/Ox3 noted to move all extremities spontaneously Ext: no peripheral edema Plan Diagnosis/Plan: Unchanged I have reviewed the history and physical and performed a pertinent physical examination on my patient. No changes have occurred unless specified. Time Spent With Patient Time: Total time managing care of this patient today ____ minutes.
[2024-09-02] MEDS: Lactated Ringers 1,000 ML 100 ML IVCONT (10:01)
--- NOTE | 2024-09-02 11:37 | P.OPN-COLO_ITS ---
Colonoscopy Operative Note Operative Note Date of Service: 09/02/24 Narrative: Procedure: Upper endoscopy and colonoscopy Indication: Epigastric pain, fam hx of gastric ca, fam hx of colon ca Endoscopist: Deja Ruzi MD Anesthesia Provider: Dr Herb Streeter Anesthesia type: MAC Instrument: [id number] and PCF-[id number] EGD Procedure:?? The procedure, indications, preparation and potential complications were reviewed with the patient, who indicated understanding and gave written informed consent to proceed. The endoscope was introduced through the mouth, and advanced to the 2nd part of the duodenum. The mucosa was carefully examined on slow withdrawal of the endoscope. The patient tolerated the procedure well. There were no immediate complications.? EGD Findings:? * Esophagus:? Normal esophageal mucosa was noted. The Z-line was at 35 cm displaced upwards with a hiatal hernia with the diaphragmatic pinch at 40 cm. * Stomach:? Erythema and erosions in the body and antrum were noted including a small 3 mm healing ulcer in pre-pyloric antrum at 6 o clock. Retroflexion was performed in the cardia. Cold forceps mapping biopsies were taken from the stomach as per Marlys protocol due to family history of gastric cancer. * Duodenum:? Normal duodenal mucosa. Cold forceps biopsies were taken from the duodenal bulb and 2nd portion of the duodenum to rule out celiac sprue. Colonoscopy Procedure:? The patient was then turned for the colonoscopy. A digital rectal exam was performed which was abnormal for ext hemorrhoids.? A distal attachment cap was affixed to the tip of the scope and the colonoscope was then inserted through the anus and advanced through the colon and advanced to the cecum at 75 cm.? Appendiceal orifice and ileocecal valve were identified. Mucosa was carefully examined under high definition white light as the instrument was slowly withdrawn in a retrograde panoramic fashion. Retroflexion was performed in rectum. The procedure was not difficult. The quality of the prep was BBPS: 0+2+1 = inadequate Withdrawal time 6 minutes Limitations: Poor prep Findings: Mucosa: Copious liquid and solid stool present ara in the cecal pouch and sigmoid colon obscuring near-complete visualization. Protruding lesions: * Medium internal hemorrhoids with stigmata of recent bleeding. Excavated lesions: * Rare diverticula in R colon Impression: 1. Normal esophagus 2. Hiatal hernia 3. Gastritis (biopsy) 4. Normal duodenum (biopsy) 5. Poor prep 6. Diverticulosis 7. Internal and external hemorrhoids Recommendations:?? * Follow-up path results * Start PPI therapy * H Pylori eradication if positive * Repeat colonoscopy within 6-12 months due to poor prep
[2024-09-02 11:40] VITALS: BP 107/64; PULSE 77; RESP 15; TEMP 36.6; O2SAT 100
[2024-09-02 11:55] VITALS: BP 132/79; PULSE 82; RESP 16; TEMP 36.7; O2SAT 100
== END 2024-09-02 12:33 | disposition home or self-care (01) ==
PROVIDERS: PCP Internal Medicine; Visit Provider Internal Medicine
PROC: (CPT 45378; principal; 2024-09-02 10:40)
DX: Z12.11 Encounter for screening for malignant neoplasm of colon (principal); Z80.0 Family history of malignant neoplasm of digestive organs; K57.30 Diverticulosis of large intestine without perforation or abscess without bleeding; K64.8 Other hemorrhoids; K64.4 Residual hemorrhoidal skin tags; Z87.19 Personal history of other diseases of the digestive system; Z90.49 Acquired absence of other specified parts of digestive tract; R10.13 Epigastric pain; K29.70 Gastritis, unspecified, without bleeding; K25.9 Gastric ulcer, unspecified as acute or chronic, without hemorrhage or perforation; K29.80 Duodenitis without bleeding; K44.9 Diaphragmatic hernia without obstruction or gangrene; I10 Essential (primary) hypertension; E78.5 Hyperlipidemia, unspecified; E03.9 Hypothyroidism, unspecified; Z79.899 Other long term (current) drug therapy; Z88.1 Allergy status to other antibiotic agents; Z88.2 Allergy status to sulfonamides; Z88.5 Allergy status to narcotic agent
CPT/HCPCS: 45378; 43239; 88305; 88313; 88342; J2003; J2704

== ENCOUNTER → 2024-09-02 08:55 | Outpatient (BNV) | payer BC, SELFPAY | PROVIDERS: PCP Internal Medicine; Visit Provider Internal Medicine | DX: R10.13 Epigastric pain (principal); K29.70 Gastritis, unspecified, without bleeding; Z80.0 Family history of malignant neoplasm of digestive organs; K57.90 Diverticulosis of intestine, part unspecified, without perforation or abscess without bleeding; K64.8 Other hemorrhoids; Z91.199 Patient's noncompliance with other medical treatment and regimen due to unspecified reason | CPT/HCPCS: 43239; 45378 ==

== ENCOUNTER 2024-10-01 09:18 | Outpatient (AMB) | payer BC, SELFPAY ==
--- NOTE | 2024-10-01 09:19 | A.OFFVIS_ITS ---
Vital Signs 10/01/24 09:31 Height 5 ft 6 in Weight 192 lb 10.944 oz BMI 31.1 BP 137/84 Blood Pressure Location Lt brachial Position Sitting Pulse 88 Pulse Source Pulse Oximeter Pulse Oximetry (%) 98 Oxygen Delivery Method Room Air Intake Visit Reasons: S/P double; Dr. Ruiz Intake Note: Pt presents to the office today for a s/p double. 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 Allergies cephalexin [From Keflex] Allergy (Severe, Verified 10/01/24 09:19) Anaphylaxis erythromycin base Allergy (Severe, Verified 10/01/24 09:19) Abdominal Pain oxycodone [From Percocet] Allergy (Severe, Verified 10/01/24 09:19) Severe Back Pain/Pressure povidone-iodine [From Betadine] Allergy (Severe, Verified 10/01/24 09:19) Rash sulfamethoxazole [From Bactrim] Allergy (Severe, Verified 10/01/24 09:19) Rash/Hand Cramps trimethoprim [From Bactrim] Allergy (Severe, Verified 10/01/24 09:19) Rash/Hand Cramps acetaminophen [From Percocet] Allergy (Intermediate, Verified 10/01/24 09:19) Rash amoxicillin Allergy (Intermediate, Verified 10/01/24 09:19) Rash codeine Allergy (Intermediate, Verified 10/01/24 09:19) Severe Back Pain/Pressure iodine Allergy (Intermediate, Verified 10/01/24 09:19) SOB/Blistering metronidazole [From Flagyl] Allergy (Intermediate, Verified 10/01/24 09:19) Anaphylaxis shellfish Allergy (Intermediate, Uncoded 10/01/24 09:19) SOB HPI Comments Details: 59 y.o F with PMH of diverticulitis s/p partial resection 2019, mother with CRC in her 50s, who is here for persistent chest/abd pain x 1 year. Has hx of prev sx in 2018 when cardiac work up was negative and EGD (Dr Nixon) gastritis and hyperplastic polyps. No H pylori. Now the sx have returned for almost a year. Has been seen by Cardiology and being empirically tx for microvascular angina - stress test and echo neg. Pt has not tried any PPI as wants to get investigated first. Never smoked. Rare etOH use. No IVDU. Fam hx: Mother: CRC in her 50s Father: gastric ca in his 60s. Paternal aunt: breast ca 09/02/24: 1. Normal esophagus 2. Hiatal hernia 3. Gastritis (biopsy) 4. Normal duodenum (biopsy) 5. Poor prep 6. Diverticulosis 7. Internal and external hemorrhoids Path: A. Duodenum, biopsy: Chronic inactive duodenitis. B. Stomach, antrum greater curvature, biopsy: Antral type mucosa with mild chronic inactive inflammation and intestinal metaplasia; negative for dysplasia; no Helicobacter organisms identified. C. Stomach, antrum lesser curvature, biopsy: Antral-type mucosa with mild chronic inactive inflammation; no Helicobacter organisms seen. D. Stomach, incisura, biopsy: Oxyntic mucosa with mild chronic inactive inflammation; no Helicobacter organisms seen. E. Stomach, body greater curvature, biopsy: Oxyntic mucosa with mild chronic inactive inflammation; no Helicobacter organisms seen. F. Stomach, body lesser curvature, biopsy: Oxyntic mucosa with mild chronic inactive inflammation; no Helicobacter organisms seen 10/01/24: Here for follow up.Reports modest reponse to PPI therapy. Still gets occasional chest pain mostly related to stress or sometimes the type of food she is eating. Sx are not frequent, occur less than once a week. [facility] Medical History Encounter for cholecystectomy Hypothyroid Asthma Hyperlipidemia Hypertension Surgical History History of gynecologic surgery History of skin surgery H/O hernia repair History of surgery on arm H/O eye surgery History of esophagogastroduodenoscopy (EGD) Hx of resection of large bowel Hx of colonoscopy Family History Mother Lung cancer Colon cancer Father Stomach cancer Paternal Aunt Breast cancer Brother Autoimmune disorder Social History Housing: House Are you a primary hospice patient care secretary to a significant other at home: No Do you presently have visiting nurse or other home services: No Alcohol intake: current Alcohol intake frequency: holidays/special occasions only Patient Tobacco Use Status: Never used Tobacco e-Cigarette/Vaping Use: Never Used Second Hand Smoke Exposure: Yes (past) service: No Current occupational status: employed Current occupational exposures/hazards: No (past) Cognitive needs: No Hearing needs: No Vision needs: No Review of Systems Const All systems reviewed & are unremarkable except as noted in HPI and below Physical Exam Vital Signs: Last Vital Signs Pulse 88 10/01/24 09:31 BP 137/84 10/01/24 09:31 Pulse Ox 98 10/01/24 09:31 Oxygen Delivery Method Room Air 10/01/24 09:31 BMI result Body Mass Index 31.1 No apparent distress Nonicteric Abdomen soft, nondistended Alert and oriented x3, normal gait Assessment & Plan Assessment & Plan (1) Gastritis: Code(s): K29.70 - Gastritis, unspecified, without bleeding Category: Medical (2) Dyspepsia: Code(s): R10.13 - Epigastric pain Category: Medical (3) Family history of gastric cancer: Code(s): Z80.0 - Family history of malignant neoplasm of digestive organs Category: Medical (4) Family history of colon cancer: Code(s): Z80.0 - Family history of malignant neoplasm of digestive organs Category: Medical Plan 1. Epigastric pain: Occasional. Likely 2/2 GERD and gastritis. However intermittent chest pain 2/2 stressful triggers likely not related to luminal causes. Recommend trying OTC menthol based supplement such as FD savana. If effective, can even use generic. Plan: - Omeprazole 20 BID x total 8-12 weeks and then once daily - will likely need indefinitely due to known gerd. - FD savana or similar PRN 2. Fam hx of CRC: Last colo 2019 at [facility]. [facility] august 2024 was poor prep. Needs to be booked for a repeat. Plan: - Msg sent to book repeat colo. - PEG prep will be given closer to the procedure date Follow up after colo Coding Level of Care Code Est Pt Level 4 (81729) Diagnoses Gastritis K29.70 Dyspepsia R10.13 Family history of gastric cancer Z80.0 Family history of colon cancer Z80.0
[2024-10-01 09:31] VITALS: BP 137/84; PULSE 88; O2SAT 98; BMI 31.1
--- OUTSIDE RECORDS SUMMARY | 2024-10-01 10:39 | XMS_ITS | Clinical Summary ---
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 COLONOSCOPY 11/16/2009 PROCEDURE: HISTORICAL COLONOSCOPY; COMMENT: no polyps; minimal diverticulosis ESOPHAGOGASTRODUODENOSCOPY 04/23/20 PROCEDURE: [place] ESOPHAGOGASTRODUODENOSCOPY TRANSORAL DIAGNOSTIC; COMMENT: normal; not on PPI meds. CHOLECYSTECTOMY PROCEDURE: LAPAROSCOPY, CHOLECYSTECTOMY; COMMENT: Herve; [facility] COLONOSCOPY 2013 PROCEDURE: HISTORICAL COLONOSCOPY; COMMENT: No polyps. CERVICAL BIOPSY W/ LOOP ELECTRODE EXCISION PROCEDURE: UT CONIZATION CERVIX W/WO D&C RPR ELTRD EXC [...] - 2023- season) 2024 02/01/2021, 08/08/2020, 07/18/2020 Cholesterol Screening (Lipid Panel) 04/08/2024 Colorectal Cancer Screening: Colonoscopy 04/08/2024 Depression Screening 04/08/2024 HIV Screening 04/08/2024 Hepatitis C Screening 04/08/2024 Hypertension/CHF/CAD Annual BMP Blood Test 04/08/2024 Social Influencers of Health Screening 04/08/2024 Influenza Vaccine (Season Ended) 2025 02/01/2021, 01/13/2020, 03/13/2019, Additional history exists DTaP,Tdap,and Td Vaccines (4 - Td or [...]
== END 2024-10-01 10:48 | disposition home or self-care (01) ==
LOC: HO.HGI 09:18
PROVIDERS: PCP Internal Medicine; Visit Provider Internal Medicine
DX: K29.70 Gastritis, unspecified, without bleeding (principal); R10.13 Epigastric pain; Z80.0 Family history of malignant neoplasm of digestive organs
CPT/HCPCS: 99214

== ENCOUNTER → 2024-10-01 09:18 | Outpatient (BNVA) | payer BC, SELFPAY | PROVIDERS: PCP Internal Medicine; Visit Provider Internal Medicine ==

== ENCOUNTER 2024-11-04 08:14 | Outpatient (AMB) | payer BC, SELFPAY ==
--- NOTE | 2024-11-04 08:17 | A.OFFVIS_ITS ---
Vital Signs 11/04/24 08:18 Height 5 ft 6 in Weight 192 lb BMI 31.0 BP 130/80 Blood Pressure Location Lt brachial Position Sitting Pulse 88 Pulse Source Pulse Oximeter Pulse Oximetry (%) 99 Oxygen Delivery Method Room Air Intake Visit Reasons: 1-2 months Intake Note: Patient presents today for fibromyalgia. Allergies cephalexin (From Keflex) Allergy (Severe, Verified 11/04/24 08:17) Anaphylaxis erythromycin base Allergy (Severe, Verified 11/04/24 08:17) Abdominal Pain oxycodone (From Percocet) Allergy (Severe, Verified 11/04/24 08:17) Severe Back Pain/Pressure povidone-iodine (From Betadine) Allergy (Severe, Verified 11/04/24 08:17) Rash sulfamethoxazole (From Bactrim) Allergy (Severe, Verified 11/04/24 08:17) Rash/Hand Cramps trimethoprim (From Bactrim) Allergy (Severe, Verified 11/04/24 08:17) Rash/Hand Cramps acetaminophen (From Percocet) Allergy (Intermediate, Verified 11/04/24 08:17) Rash amoxicillin Allergy (Intermediate, Verified 11/04/24 08:17) Rash codeine Allergy (Intermediate, Verified 11/04/24 08:17) Severe Back Pain/Pressure iodine Allergy (Intermediate, Verified 11/04/24 08:17) SOB/Blistering metronidazole (From Flagyl) Allergy (Intermediate, Verified 11/04/24 08:17) Anaphylaxis shellfish Allergy (Intermediate, Uncoded 10/01/24 09:19) SOB HPI HPI 1-2 months: Details: She saw her finisher tailor apprentice who gave her a cortisone injections to bilateral 1st MTPs. She also increased her shoe size from 8-8-1/2 wide. She has almost no pain in right MTP. She feels well. [facility] Medical History Encounter for cholecystectomy Hypothyroid Asthma Hyperlipidemia Hypertension Surgical History History of gynecologic surgery History of skin surgery H/O hernia repair History of surgery on arm H/O eye surgery History of esophagogastroduodenoscopy (EGD) Hx of resection of large bowel Hx of colonoscopy Family History Mother Lung cancer Colon cancer Father Stomach cancer Paternal Aunt Breast cancer Brother Autoimmune disorder Social History Housing: House Are you a primary progressive care nurse to a significant other at home: No Do you presently have visiting nurse or other home services: No Alcohol intake: current Alcohol intake frequency: holidays/special occasions only Patient Tobacco Use Status: Never used Tobacco e-Cigarette/Vaping Use: Never Used Second Hand Smoke Exposure: Yes (past) service: No Current occupational status: employed Current occupational exposures/hazards: No (past) Cognitive needs: No Hearing needs: No Vision needs: No Physical Exam Vital Signs: Last Vital Signs Pulse 88 11/04/24 08:18 BP 130/80 11/04/24 08:18 Pulse Ox 99 11/04/24 08:18 Oxygen Delivery Method Room Air 11/04/24 08:18 BMI result Body Mass Index 31.0 Const Other: General: Comfortable Skin: No lesions seen MSK: No synovitis. No tenderness to palpation of bilateral 1st MTPs. Bilateral hallux valgus deformity present. pes planus bilateral. She has bony hypertrophy of midfoot without tenderness. Valgus deformity of bilateral knees present. Normal range of motion of lower extremities. Assessment & Plan Assessment & Plan (1) Bilateral foot pain: Comment: Due to uncontrolled pain from 1st MTP osteoarthritis and pes planus, which has resolved with cortisone injections and being on meloxicam from finisher tailor apprentice. X- rays of bilateral feet revealed mild degenerative changes of 1st MTPs. She has had no gout flares per history and off of allopurinol she feels well. Code(s): M79.671 - Pain in right foot; M79.672 - Pain in left foot Category: Medical Plan: Wear supportive why footwear at work and at home with arch support She will follow up with finisher tailor apprentice and discuss continuing meloxicam as it has helped control pain from both her osteoarthritis in her feet and fibromyalgia We discussed the importance of weight loss in contributing to reduce pain in weight bearing joints and progression of osteoarthritis. She has had difficulty losing weight with diet and exercise. I recommend PCP follow-up for nutri tionist referral and consideration of medications used for weight loss. Consider trying josue NOOM or weight watchers Return to clinic PRN (2) Bilateral bunions: Code(s): M21.611 - Bunion of right foot; M21.612 - Bunion of left foot Category: Medical Plan: See above (3) Pes planus of both feet: Code(s): M21.41 - Flat foot [pes planus] (acquired), right foot; M21.42 - Flat foot [pes planus] (acquired), left foot Category: Medical Plan: See above (4) Hyperuricemia: Comment: Uric acid was 6.5 04/2024. Off of allopurinol she has not had any gout episodes. At this time there is no indication to recheck uric acid level as I would not be treating uric acid level in context of her not having a gout attack. Code(s): E79.0 - Hyperuricemia without signs of inflammatory arthritis and tophaceous disease Category: Medical Plan: Monitor for gout flares clinically. She will return to clinic if she experiences a gout flare for evaluation and management Coding Level of Care Code Est Pt Level 4 (43060) Complex EM visit Add On G2211 Diagnoses Bilateral foot pain M79.671; M79.672 Bilateral bunions M21.611; M21.612 Pes planus of both feet M21.41; M21.42 Hyperuricemia E79.0
[2024-11-04 08:18] VITALS: BP 130/80; PULSE 88; O2SAT 99; BMI 31.0
--- OUTSIDE RECORDS SUMMARY | 2024-11-04 08:21 | XMS_ITS | Clinical Summary ---
Author Organization [facility] Address [address] [place] [id number] Phone Care Team Providers Care Big Data Solutions Architect Name Role Phone Physician, No Pcp Primary Care Provider Unavaila ble Encounters Date Type Department Care Team Description 10/15/2024 Lab Requisition [facility] - Main Lab [address] [facility] [place] [address] Garry Randhawa MD Encounter for gynecological examination (general) (routine) without abnormal findings from Last 3 Months Surgical History Surgery Date Site/Laterality Comments OTHER SURGICAL HISTORY 1992 PROCEDURE: [place] RADIAL KERATOTOMY; COMMENT: x 6 HERNIA REPAIR 1990 PROCEDURE: REPAIR INGUINAL HERNIA; COMMENT: RT OTHER SURGICAL HISTORY 1990 PROCEDURE: LAPAROSCOPY PROCEDURE NEC; COMMENT: ENDOMETRIOSIS COLONOSCOPY 08/25/04 PROCEDURE: HISTORICAL COLONOSCOPY; COMMENT: normal with normal colonic bx (to evaluate diarrhea). COLONOSCOPY 11/16/2009 PROCEDURE: HISTORICAL COLONOSCOPY; COMMENT: no polyps; minimal diverticulosis ESOPHAGOGASTRODUODENOSCOPY 04/23/20 12 PROCEDURE: [place] ESOPHAGOGASTRODUODENOSCOPY TRANSORAL DIAGNOSTIC; COMMENT: normal; not on PPI meds. CHOLECYSTECTOMY 2 PROCEDURE: LAPAROSCOPY, CHOLECYSTECTOMY; COMMENT: Herve; [facility] COLONOSCOPY 2013 PROCEDURE: HISTORICAL COLONOSCOPY; COMMENT: No polyps. CERVICAL BIOPSY W/ LOOP ELECTRODE EXCISION PROCEDURE: [place] CONIZATION CERVIX W/WO D&C RPR ELTRD EXC [...] of 3 - 19+ 3-dose series) 1985 Pneumococcal Vaccine: 50+ Years (1 of 1 - PCV) 2016 Zoster Vaccines (1 of 2) 2016 COVID-19 Vaccine (4 - season) 2024 02/01/2021, 08/08/2020, 07/18/2020 Cholesterol Screening (Lipid Panel) 04/08/2024 Colorectal Cancer Screening: Colonoscopy 04/08/2024 Depression Screening 04/08/2024 HIV Screening 04/08/2024 Hepatitis C Screening 04/08/2024 Hypertension/CHF/CAD Annual BMP Blood Test 04/08/2024 Social Influencers of Health Screening 04/08/2024 Influenza Vaccine (Season Ended) 2025 02/01/2021, 01/13/2020, 03/13/2019, Additional history exists Cervical Cancer Screening: Pap Smear 10/15/2027 10/14/2024 DTaP,Tdap,and Td Vaccines (4 - Td or [...] on patient's age to complete this topic Procedures Procedure Name Priority Date/Time Associated Diagnosis Comments PAP SMEAR Routine 10/14/2024 12:00 AM EDT Encounter for gynecological examination (general) (routine) without abnormal findings from Last 3 Months Results * Pap smear (10/14/2024 12:00 AM EDT) Interpretation Negative for intraepithelial lesion or malignancy 10/20/2024 9:53 AM EDT [facility] General Categorization Negative [facility] Other Findings Atrophy 10/20/2024 9:53 AM [facility] Specimen Adequacy Satisfactory for evaluation 10/20/2024 9:53 AM [facility] Pap Methodology Liquid Based Pap Test 10/20/2024 9:53 AM [facility] Disclaimer Note: This pap test could not be imaged utilizing the [employer] System and required a manual review. The Pap test is a screening test which carries an inherent false negative rate. These test results should be correlated with the patient's clinical findings and history. This Pap test was processed using an automated screening system. Technical cytopathology services provided by [facility], at [address] [place] [address] (CLIA # [id number]/Fermin Vasquez MD, Employment Educational Coord.) 10/20/2024 9:53 AM [facility] Console Pap Interpretation Reported 10/20/2024 9:53 AM [facility] Brushing/Spatula Cervix uteri structure / Unknown 10/14/2024 10/15/2024 6:50 AM EDT Garry Randhawa MD LAB CYTOLOGY ORDERABLES Final Result Performing Organization Address City/State/[facility] Co de Phone Number [place] [place] ([facility] [address] [place] [address], [place] [phone] from Last 3 Months Insurance [facility] Care Teams Big Data Solutions Architect Relationship Specialty Start Date End Date Physician, No Pcp PCP - General 10/21/24
== END 2024-11-04 08:49 | disposition home or self-care (01) ==
LOC: HO.RHES 08:14
PROVIDERS: PCP Internal Medicine; Visit Provider Internal Medicine Rheumatology
DX: M79.671 Pain in right foot (principal); M79.672 Pain in left foot; M21.611 Bunion of right foot; M21.612 Bunion of left foot; M21.41 Flat foot [pes planus] (acquired), right foot; M21.42 Flat foot [pes planus] (acquired), left foot; E79.0 Hyperuricemia without signs of inflammatory arthritis and tophaceous disease
CPT/HCPCS: 99214

== ENCOUNTER 2025-01-20 09:09 | Outpatient (AMB) | payer BC, SELFPAY ==
--- NOTE | 2025-01-20 09:32 | MHC.PC.OV ---
Vital Signs 01/20/25 09:33 Height 5 ft 6 in Weight 192 lb 6 oz BMI 31.0 BP 122/74 Blood Pressure Location Rt brachial Position Sitting Respiration 14 Pulse 94 Pulse Source Pulse Oximeter Pulse Oximetry (%) 96 Oxygen Delivery Method Room Air Intake Visit Reasons: Follow Up Fibromyalgia Intake Note: Follow up. Right pinky finger swelling. Air Conditioning Unit Tester Required: No Allergies cephalexin (From Keflex) Allergy (Severe, Verified 01/20/25 09:33) Anaphylaxis erythromycin base Allergy (Severe, Verified 01/20/25 09:33) Abdominal Pain oxycodone (From Percocet) Allergy (Severe, Verified 01/20/25 09:33) Severe Back Pain/Pressure povidone-iodine (From Betadine) Allergy (Severe, Verified 01/20/25 09:33) Rash sulfamethoxazole (From Bactrim) Allergy (Severe, Verified 01/20/25 09:33) Rash/Hand Cramps trimethoprim (From Bactrim) Allergy (Severe, Verified 01/20/25 09:33) Rash/Hand Cramps acetaminophen (From Percocet) Allergy (Intermediate, Verified 01/20/25 09:33) Rash amoxicillin Allergy (Intermediate, Verified 01/20/25 09:33) Rash codeine Allergy (Intermediate, Verified 01/20/25 09:33) Severe Back Pain/Pressure iodine Allergy (Intermediate, Verified 01/20/25 09:33) SOB/Blistering metronidazole (From Flagyl) Allergy (Intermediate, Verified 01/20/25 09:33) Anaphylaxis shellfish Allergy (Intermediate, Uncoded 01/20/25 09:33) SOB Tobacco use date assessed: 01/20/25 Dental Screening Dental Screen Date: 01/20/25 Did you have a dental visit in the last 12 months?: No Did you have a dental problem in the last 6 months where you did not have access to dental care?: No Was dental information given to patient?: Patient has dentist HPI HPI Comments History of Present Illness Details The patient is a 59 year old female with a past medical history off fibromyalgia, OA, asthma, hyplipidemia, diveriticulitis, migraine, insomnia presenting for follow up CV: Hyperlipidemia. Following with cardiology. Being treated for microvascular angina. Stress test and echo were reassuring. Tried multiple statins-lipitor, simvastatin, pravastatin. All led to increased myalgia. Recently tried pravastatin again with onset of significant muscle pain. Insurance has not covered PCSK9 inhibitors. Currently on zetia. Hypothyroid: Stable on levothyroxine 50mcg daily. Thyroid u/s reassuring 2023. Chronic pain: 2/2 OA, fibromyalgia. She was recently placed on meloxicam by podiatry with very good relief of pain. Continues gabapentin, elavil. Heme/Onc: abnormal mammogram and u/s. MRI without evidence of malignancy. Surgery consult was undertaken. This shows an indeterminate but not entirely suspicious appearing right breast mass. These were performed in response for abnormal u/s six months ago prior to which she reports normal mammograms. Gets these done at [facility]. She has been having tender axillary lymph nodes of the left breast. She has a family history of breast cancer. The original recommendation was for repeat testing in six months Asthma: stable. Slow recovery from COVID May 2020. COVID 06/2023. On flovent, albuterol prn History of diverticulitis s/p colonic resection 2018 without recent issue Insomnia: Well controlled on ambien Mammo 09/2023 Colonoscopy 08/2024 (with EGD) ROS CONSTITUTIONAL: Denies weight loss, fever and chills. HEENT: Denies changes in vision and hearing. RESPIRATORY: Denies SOB and cough. CV: Denies palpitations and CP GI: Denies abdominal pain, nausea, vomiting and diarrhea. : Denies dysuria and urinary frequency. MSK: Denies new myalgia and joint pain. SKIN: Denies rash and pruritus. NEUROLOGICAL: Denies headache PSYCHIATRIC: Denies recent changes in mood. PHYSICAL EXAM: GENERAL: Alert and oriented x 3. NAD EYES: EOMI. Anicteric. HENT: Moist mucous membranes. No scleral icterus. No cervical lymphadenopathy. LUNGS: Clear to auscultation bilaterally. CARDIOVASCULAR: Regular rate and rhythm. No murmur. No JVD. ABDOMEN: Soft, non-tender +bs EXTREMITIES: No edema. Non-tender. SKIN: No rashes or lesions. Warm. NEUROLOGIC: No focal neurological deficits. CN II-XII grossly intact PSYCHIATRIC: Cooperative. Appropriate mood and affect [facility] Medical History Hypothyroid Encounter for cholecystectomy Asthma Hyperlipidemia Hypertension Surgical History History of gynecologic surgery History of skin surgery H/O hernia repair History of surgery on arm H/O eye surgery History of esophagogastroduodenoscopy (EGD) Hx of resection of large bowel Hx of colonoscopy Family History Mother Lung cancer Colon cancer Father Stomach cancer Paternal Aunt Breast cancer Brother Autoimmune disorder Social History Housing: House Are you a primary school childcare attendant to a significant other at home: No Do you presently have visiting nurse or other home services: No Alcohol intake: current Alcohol intake frequency: holidays/special occasions only Patient Tobacco Use Status: Never used Tobacco e-Cigarette/Vaping Use: Never Used Second Hand Smoke Exposure: Yes (past) service: No Current occupational status: employed Current occupational exposures/hazards: No (past) Cognitive needs: No Hearing needs: No Vision needs: No Questionnaire Thrive Questionnaire Date Thrive assessed: 07/15/24 I am a: Patient What is your living situation today?: I have a steady place to live Within the past 12 months, did the food you bought not last and you didn't have the money to get more?: Never true Within the past 12 months, did you worry whether your food would run out before you got money to buy more?: Never true Do you have trouble paying for medicines?: No Do you have trouble getting transportation to medical appointments?: No Do you have trouble paying your heating and electricity bill?: No Do you have trouble taking care of your child, family member or friend?: No Do you have trouble with day-to-day activities such as bathing, preparing meals, shopping, managing finances, etc.?: No Are you currently unemployed and looking for a job?: No Are you interested in more education?: No Please select the resources that you would like help with: None Currently or been in a relationship where the following occur: No concerns reported THRIVE Score: 0 AUDIT C Alcohol Use Questionnaire (AUDIT-C) 1. How often do you have a drink containing alcohol?: Monthly or less 2. How many drinks containing alcohol do you have on a typical day when you are drinking?: 1 or 2 3. How often do you have six or more drinks on one occasion?: Never Total Score: 1 SUMMER-7 AMB Questionnaire SUMMER-7 Date SUMMER - 7 assessed: 07/15/24 Source: Developed by Drs. Javi Whatley, Yaneth Salomon, Speedy Ward and colleagues, with an educational selvin from [employer]. Physical exam (Primary Care) Vital Signs: Last Vital Signs Pulse 94 01/20/25 09:33 Resp 14 01/20/25 09:33 BP 122/74 01/20/25 09:33 Pulse Ox 96 01/20/25 09:33 Oxygen Delivery Method Room Air 01/20/25 09:33 BMI result Body Mass Index 31.0 Tobacco/Smoking Status: Tobacco use Status Tobacco use date assessed 01/20/25 01/20/25 09:39 Patient Tobacco Use Status Never used Tobacco 01/20/25 09:39 e-Cigarette/Vaping Use Never Used 01/20/25 09:39 Thrive Assessment: Date of Thrive Assessment Date Thrive assessed 07/15/24 01/20/25 09:39 Currently or been in a relationship where the following occur: No concerns reported Coding Level of Care Code Est Pt Level 4 (09483) Complex EM visit Add On G2211 Diagnoses Fibromyalgia M79.7 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; 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; E06.3 Hypothyroidism type: due to Gracie's thyroiditis Migraine without status migrainosus, not intractable, unspecified migraine type G43.909 Migraine type: unspecified Status migrainosus presence: without status migrainosus Intractability: not intractable Primary insomnia F51.01 Insomnia type: primary Assessment & Plan Assessment & Plan (1) Fibromyalgia: Code(s): M79.7 - Fibromyalgia Category: Medical (2) Statin-induced myositis: Code(s): M60.9 - Myositis, unspecified; T46.6X5A - Adverse effect of antihyperlipidemic and antiarteriosclerotic drugs, initial encounter Category: Medical (3) Hypothyroid: Code(s): E03.9 - Hypothyroidism, unspecified Category: Medical Qualifiers: Hypothyroidism type: due to Gracie's thyroiditis Qualified Code(s): E03.8 - Other specified hypothyroidism; E06.3 - Autoimmune thyroiditis (4) Migraine: Code(s): G43.909 - Migraine, unspecified, not intractable, without status migrainosus Category: Medical Qualifiers: Migraine type: unspecified Status migrainosus presence: without status migrainosus Intractability: not intractable Qualified Code(s): G43.909 - Migraine, unspecified, not intractable, without status migrainosus (5) Insomnia: Code(s): G47.00 - Insomnia, unspecified Category: Medical Qualifiers: Insomnia type: primary Qualified Code(s): F51.01 - Primary insomnia Plan Fibromyalgia, arthritis improved on meloxicam GERD-stable. Migraines are stable on current medications HLD/HTN-stable on current medications Orders: Orders Rheumatoid Factor 01/20/25 M79.641 - Pain in right hand Complete Blood Count Auto Diff 01/20/25 M79.641 - Pain in right hand Erythrocyte Sedimentation Rate 01/20/25 M25.50 - Pain in unspecified joint, M60.9 - Myositis, unspecified, T46.6X5A - Adverse effect of antihyperlipidemic and antiarteriosclerotic drugs, initial encounter TSH reflex Free T4 01/20/25 M79.641 - Pain in right hand Comprehensive Met. Panel 01/20/25 M79.641 - Pain in right hand Cyclic Citrullinated Peptide 01/20/25 M79.641 - Pain in right hand XR hand RT min 3V 01/20/25 M79.641 - Pain in right hand
[2025-01-20 09:33] VITALS: BP 122/74; PULSE 94; RESP 14; O2SAT 96; BMI 31.0
--- OUTSIDE RECORDS SUMMARY | 2025-01-20 10:32 | XMS_ITS | Clinical Summary ---
Author Organization [address] Address [address] [place] [phone] Phone Care Team Providers Care Termite Technician Name Role Phone Physician, No Pcp Primary Care Provider Unavaila ble Surgical History Surgery Date Site/Laterality Comments OTHER [...] 2016 Zoster Vaccines (1 of 2) 2016 Cholesterol Screening (Lipid Panel) 04/08/2024 Colorectal Cancer Screening: Colonoscopy 04/08/2024 HIV Screening 04/08/2024 Hepatitis C Screening 04/08/2024 Hypertension/CHF/CAD Annual BMP Blood Test 04/08/2024 Social Influencers of Health Screening 04/08/2024 Depression Screening 05/14/2024 COVID-19 Vaccine (4 - season) 2025 02/01/2021, 08/08/2020, 07/18/2020 Influenza Vaccine (#1) 2025 , 01/13/2020, 03/13/2019, Additional history exists Cervical Cancer [...] without abnormal findings from Last 3 Months or Most Recently Relevant to Health Maintenance Results * Pap smear (10/14/2024 12:00 AM EDT) Interpretation Negative for intraepithelial lesion or malignancy 10/20/2024 9:53 AM EDT [facility] General Categorization Negative 10/20/2024 9:53 AM EDT [facility] Other Findings Atrophy 10/20/2024 9:53 AM EDT [facility] Specimen Adequacy Satisfactory for evaluation 10/20/2024 9:53 AM EDT [facility] Pap Methodology Liquid Based Pap Test 10/20/2024 9:53 AM EDT [facility] Disclaimer Note: This pap test could not be imaged utilizing the [employer] Imaging System and required a manual review. The Pap test is a screening test which carries an inherent false negative rate. These test results should be correlated with the patient's clinical findings and history. This Pap test was processed using an automated screening system. Technical cytopathology services provided by [facility], at [address] [place] [id number] (CLIA # [id number]/Fermin Vasquez MD, Veterinarian Poultry.) 10/20/2024 9:53 AM T [facility] Console Pap Interpretation Reported 10/20/2024 9:53 AM T [facility] Brushing/Spatula Cervix uteri structure / Unknown 10/14/2024 10/15/2024 6:50 AM EDT us Garry Randhawa MD LAB CYTOLOGY ORDERABLES Final Result [facility] [address] [place] [address], from Last 3 Months or Most Recently Relevant to Health Maintenance Insurance [facility] Care Teams Termite Technician Relationship Specialty Start Date End Date Physician, No Pcp PCP - General 10/21/24
--- OUTSIDE RECORDS SUMMARY | 2025-01-20 10:32 | XMS_ITS | Clinical Summary ---
Author Organization [facility] Address [address] [place] [address] Phone Care Team Providers Care Furniture Delivery Driver Name Role Phone Elina Mendez MD Primary Care Provider [phone] Social History Tobacco Use Types Packs/Day Years Used Date Smoking Tobacco: Never Assessed Education Answer Date Recorded Are you interested in more education? Not on kanika e 09/08/2022 Are you concerned about learning? Not on file 09/08/2022 No 09/08/2022 No 09/08/2022 Digital Access Answer Date Recorded No 10/10/2022 No 10/10/2022 No 10/10/2022 Reliable internet access at home? Not on file 10/10/2022 Device with a working camera? Not on file Comments Unknown Sex and Gender Information Value Date Recorded Sex Assigned at Not on file Legal Sex Female 3:05 PM EDT Gender Identity Not on file Sexual Orientation Not on file Plan of Treatment Not on file Medical Devices Not on file Insurance [facility] [address] [place] [address] [place] [address] [place] [address] [employer] [address] [place] [address] Care Teams Furniture Delivery Driver Relationship Specialty Start Date End Date Elina Mendez MD PCP - General Internal Medicine 02/21/18 Additional Source Comments The information contained in this document represents components of the legal health record. It is not the complete legal health record.[facility]
--- OUTSIDE RECORDS SUMMARY | 2025-01-20 10:32 | XMS_ITS | Encounter Summary ---
Author Organization [facility] Address [address] [place] [address] Care Team Providers Care Research Development Director Name Role Phone Physician, No Pcp Primary Care Provider Unavaila ble Encounter Details Date Type Department Care Team (Latest Contact Info) Description 10/15/2024 Lab Requisition [facility] - Main Lab [address] [place] [address] Garry Randhawa MD [address] [address] Encounter for gynecological examination (general) (routine) without abnormal findings Social History Tobacco Use Types Packs/Day Years Used Date Smoking Tobacco: Never Smokeless Tobacco: Never Alcohol Use Standard Drinks/Week Comments Yes 0 (1 standard drink = 0.6 oz pur e alcohol) Comments Unknown Sex and Gender Information Value Date Recorded Sex Assigned at Not on file Legal Sex Female 5:07 PM EST Gender Identity Not on file Sexual Orientation Not on file documented as of this encounter Plan of Treatment Not on file documented as of this encounter Procedures Procedure Name Priority Date/Time Associated Diagnosis Comments PAP SMEAR Routine 10/14/2024 12:00 AM EDT Encounter for gynecological examination (general) (routine) without abnormal findings documented in this encounter Results * Pap smear (10/14/2024 12:00 AM EDT) Interpretation Negative for intraepithelial lesion or malignancy 10/20/2024 9:53 AM EDT [facility] General Categorization Negative 10/20/2024 9:53 AM EDT [facility] Other Findings Atrophy 10/20/2024 9:53 AM [facility] Specimen Adequacy Satisfactory for evaluation 10/20/2024 9:53 AM [facility] Pap Methodology Liquid Based Pap Test 10/20/2024 9:53 AM EDT [facility] Disclaimer Note: This pap test could not be imaged utilizing the [employer] Imaging System and required a manual review. The Pap test is a screening test which carries an inherent false negative rate. These test results should be correlated with the patient's clinical findings and history. This Pap test was processed using an automated screening system. Technical cytopathology services provided by [facility], at [address] [place] [address] (CLIA # [id number]/Fermin Vasquez MD, Chairman & Chief Executive Officer.) 10/20/2024 9:53 AM T [facility] Console Pap Interpretation Reported 10/20/2024 9:53 AM [facility] Brushing/Spatula Cervix uteri structure / Unknown 10/14/2024 10/15/2024 6:50 AM EDT us Garry Randhawa MD LAB CYTOLOGY ORDERABLES Final Result [facility] [address] [place] [address], documented in this encounter Visit Diagnoses Diagnosis Encounter for gynecological examination (general) (routine) without abnormal findings documented in this encounter Care Teams Research Development Director Relationship Specialty Start Date End Date Physician, No Pcp PCP - General 10/21/24 documented as of this encounter
--- OUTSIDE RECORDS SUMMARY | 2025-01-20 10:32 | XMS_ITS | Encounter Summary ---
Author Organization [facility] Address [address] [place] [phone] Phone Care Team Providers Care Artist Woodblock Name Role Phone Elina Mendez MD Primary Care Provider Encounter Details Date Type Department Care Team (Latest Contact Info) Description 02/21/2018 Transcribe Orders [facility] [address] [place] [address] Carolee Sanon MD [address] [place] [address] [email or web address] Neurotrophic keratoconjunctivitis of both eyes (Primary Dx) Social History Tobacco Use Types Packs/Day Years Used Date Smoking Tobacco: Never Assessed Comments Unknown Sex and Gender Information Value Date Recorded Sex Assigned at Not on file Legal Sex Female 3:05 PM EDT Gender Identity Not on file Sexual Orientation Not on file documented as of this encounter Plan of Treatment Not on file documented as of this encounter Results * SS-A/SS-B antibodies (02/21/2018 3:20 PM EDT) SS-A/RO IGG <0.2 <1.0 (Negative) U [facility] DPT OF LAB MED AND PAT+ SS-B/LA IGG <0.2 <1.0 (Negative) U [facility] DPT OF LAB MED AND PAT+ Blood 02/21/2018 3:20 PM EDT 02/21/2018 3:27 PM EDT us Carolee Sanon MD LAB BLOOD ORDERABLES Final Resu lt [facility] DPT OF LAB MED AND PAT+ [address] [place] [address] * Rheumatoid factor (02/21/2018 3:20 PM EDT) RHEUMATOID FACTOR <10.0 0.0 - 14.0 IU/ml [facility] Blood 02/21/2018 3:20 PM EDT 02/21/2018 3:26 PM EDT us Carolee Sanon MD LAB BLOOD ORDERABLES Final Resu lt Performing Organization Address [facility]/ZIP Co de Phone Number [address] [address] * Antinuclear antibody (BLAINE) (02/21/2018 3:20 PM EDT) BLAINE SCREEN ON HEP 2 Negative Negative [facility] Blood 02/21/2018 3:20 PM EDT 02/21/2018 3:26 PM EDT Carolee Sanon MD LAB BLOOD ORDERABLES Final Resu lt Performing Organization Address [facility] Co de Phone Number [address] [address] documented in this encounter Visit Diagnoses Diagnosis Neurotrophic keratoconjunctivitis of both eyes- Primary documented in this encounter Care Teams Artist Woodblock Relationship Specialty Start Date End Date Elina Mendez MD PCP - General Internal Medicine 02/21/18 documented as of this encounter Additional Source Comments The information contained in this document represents components of the legal health record. It is not the complete legal health record.[facility]
== END 2025-01-20 10:06 | disposition home or self-care (01) ==
LOC: HO.HMCFM 09:10
PROVIDERS: PCP Internal Medicine; Visit Provider Internal Medicine
DX: M79.7 Fibromyalgia (principal); M60.9 Myositis, unspecified; T46.6X5A Adverse effect of antihyperlipidemic and antiarteriosclerotic drugs, initial encounter; E03.8 Other specified hypothyroidism; E06.3 Autoimmune thyroiditis; G43.909 Migraine, unspecified, not intractable, without status migrainosus; F51.01 Primary insomnia

== ENCOUNTER 2025-01-20 09:09 | Outpatient (REF) | payer BC, SELFPAY ==
[2025-01-20 14:11] LABS: MANUAL DIFF FLAG NO
[2025-01-20 14:23] LABS: Hematocrit 40.1 % (37.0-47.0); Hemoglobin 12.7 g/dl (12.0-16.0); Imm Gran Abs Auto 0.05 X10*3/uL (0.00-0.03); Imm Gran Pct Auto 0.7 % (0.0-0.4); Lymphocytes Absolute Auto 1.8 X10*3/uL (1.2-4.9); Mean Corpuscular HGB Conc 31.7 g/dl (31.0-35.0); Mean Corpuscular Hemoglobin 30.2 pg (27.0-33.0); Mean Corpuscular Volume 95.2 fL (80.0-98.0); NRBC Abs Auto 0.000 X10*3/uL (0.0-0.012); NRBC Pct Auto 0.0 /100WBC (0.0-0.2); Platelet Count 261 X10*3/uL (160-400); Red Blood Count 4.21 X10*6/uL (4.20-5.50); White Blood Count 7.2 X10*3/uL (4.8-10.8)
[2025-01-20 15:00] LABS: Alanine Aminotransferase 23 U/L (0-31); Albumin Level 4.5 g/dL (3.5-5.0); Alkaline Phosphatase 127 U/L (39-117); Anion Gap 12 (12-20); Aspartate Amino Transferase 30 U/L (5-31); Blood Urea Nitrogen 24 mg/dL (9-16); Calcium 8.8 mg/dL (8.4-10.2); Carbon Dioxide 25 mmol/L (22-29); Chloride 107 mmol/L (96-108); Estimated Glomerular Filt Rate > 60; Potassium 4.2 mmol/L (3.3-5.1); Sodium 140 mmol/L (135-145); Total Protein 7.2 g/dL (6.5-8.0)
== END 2025-01-20 09:10 | disposition home or self-care (01) ==
LOC: HO.WFDLDS 09:09
PROVIDERS: PCP Internal Medicine; Visit Provider Internal Medicine
DX: M79.7 Fibromyalgia (principal); M60.9 Myositis, unspecified; T46.6X5A Adverse effect of antihyperlipidemic and antiarteriosclerotic drugs, initial encounter; E03.8 Other specified hypothyroidism; E06.3 Autoimmune thyroiditis; G43.909 Migraine, unspecified, not intractable, without status migrainosus; F51.01 Primary insomnia
CPT/HCPCS: 36415; 80053; 84443; 85025; 85652; 86200; 86431

== ENCOUNTER 2025-03-31 08:37 | Day surgery (SDC) | payer BC, SELFPAY ==
--- OUTSIDE RECORDS SUMMARY | 2025-03-06 11:03 | XMS_ITS | Encounter Summary ---
Author Organization [facility] Address [address] [place] [address] Care Team Providers Care Marketing Account Manager Name Role Phone Physician, No Pcp Primary Care Provider Unavaila ble Encounter Details Date Type Department Care Team (Latest Contact Info) Description 10/15/2024 Lab Requisition [facility] - Main Lab [address] [place] [address] Garry Randhawa MD [address] [address] Encounter for gynecological examination (general) [...] lesion or malignancy 10/20/2024 9:53 AM EDT [facility] General Categorization Negative 10/20/2024 9:[address] [facility] Other Findings Atrophy 10/20/2024 9:53 AM [facility] Specimen Adequacy Satisfactory for evaluation 10/20/2024 9:53 AM [facility] Pap Methodology Liquid Based Pap Test 10/20/2024 9:[address] [facility] Disclaimer Note: This pap test could not be imaged utilizing the [employer] Imaging System and required a manual review. The Pap test is a screening test which carries an inherent false negative rate. These test results should be correlated with the patient's clinical findings and history. This Pap test was processed using an automated screening system. Technical cytopathology services provided by [facility], at [address] [place] [id number] (CLIA # [id number]/Fermin Vasquez MD, Glaze Carrier.) 10/20/2024 9:[address] [facility] Console Pap Interpretation Reported 10/20/2024 9:53 AM [facility] Brushing/Spatula Cervix uteri structure / Unknown 10/14/2024 10/15/2024 6:50 AM EDT us Garry Randhawa MD LAB CYTOLOGY ORDERABLES Final Result [facility] [address] [place] [address], documented in this encounter Visit Diagnoses Diagnosis Encounter for gynecological examination (general) (routine) without abnormal findings documented in this encounter Care Teams Marketing Account Manager Relationship Specialty Start Date End Date Physician, No Pcp PCP - General 10/21/24 documented as of this encounter
--- OUTSIDE RECORDS SUMMARY | 2025-03-06 11:03 | XMS_ITS | Clinical Summary ---
Author Organization [address] Address [address] [place] [phone] Phone Care Team Providers Care Events Intern Name Role Phone Physician, No Pcp Primary Care Provider Unavaila ble Surgical History Surgery Date Site/Laterality Comments OTHER SURGICAL HISTORY 1992 PROCEDURE: [place] RADIAL KERATOTOMY; COMMENT: x 6 HERNIA REPAIR 1990 PROCEDURE: REPAIR INGUINAL HERNIA; COMMENT: RT OTHER SURGICAL HISTORY 1990 PROCEDURE: LAPAROSCOPY PROCEDURE NEC; COMMENT: ENDOMETRIOSIS COLONOSCOPY 08/25/04 PROCEDURE: HISTORICAL COLONOSCOPY; COMMENT: normal with normal colonic bx (to evaluate diarrhea). COLONOSCOPY 11/16/2009 PROCEDURE: HISTORICAL COLONOSCOPY; COMMENT: no polyps; minimal diverticulosis ESOPHAGOGASTRODUODENOSCOPY 04/23/20 PROCEDURE: [place] ESOPHAGOGASTRODUODENOSCOPY TRANSORAL DIAGNOSTIC; COMMENT: normal; not on PPI meds. CHOLECYSTECTOMY PROCEDURE: LAPAROSCOPY, CHOLECYSTECTOMY; COMMENT: Herve; [facility] COLONOSCOPY 2013 PROCEDURE: HISTORICAL COLONOSCOPY; COMMENT: No polyps. CERVICAL BIOPSY W/ LOOP ELECTRODE EXCISION PROCEDURE: [place] CONIZATION CERVIX W/WO D&C RPR ELTRD EXC [...] Last Done Comments Breast Cancer Screening 1966 Colorectal Cancer Screening: Colonoscopy 1966 Hepatitis B Vaccines (1 of 3 - 19+ 3-dose series) 1985 Pneumococcal Vaccine: 50+ Years (1 of 1 - PCV) 2016 Zoster Vaccines (1 of 2) 2016 Cholesterol Screening (Lipid Panel) 04/08/2024 HIV Screening 04/08/2024 Hepatitis C Screening 04/08/2024 Hypertension/CHF/CAD Annual BMP Blood Test 04/08/2024 Social Influencers of Health Screening 04/08/2024 Depression Screening 05/14/2024 COVID-19 Vaccine (4 - season) 2025 02/01/2021, 08/08/2020, 07/18/2020 Influenza Vaccine (#1) 2025 , 01/13/2020, 03/13/2019, Additional history exists Cervical Cancer Screening: Pap Smear 10/15/2027 10/14/2024 DTaP,Tdap,and Td Vaccines (4 - Td or Tdap) 11/22/2028 11/22/2018, 06/01/2008, 05/14/1997 RSV Immunization Adult Patients (1 - 1-dose 75+ series) 2041 HIB Vaccines Aged Out No longer eligi [...] lesion or malignancy 10/20/2024 9:53 AM EDT [facility] General Categorization Negative 10/20/2024 9:53 AM EDT [facility] Other Findings Atrophy 10/20/2024 9:53 AM EDT [facility] Specimen Adequacy Satisfactory for evaluation 10/20/2024 9:53 AM EDT [facility] Pap Methodology Liquid Based Pap Test 10/20/2024 9:53 AM EDT [facility] Disclaimer Note: This pap test could not be imaged utilizing the [employer] System and required a manual review. The Pap test is a screening test which carries an inherent false negative rate. These test results should be correlated with the patient's clinical findings and history. This Pap test was processed using an automated screening system. Technical cytopathology services provided by [facility], at [address] [place] [id number] (CLIA # [id number]/Fermin Vasquez MD, Battery Test Engineer.) 10/20/2024 9:53 AM EDT [facility] Console Pap Interpretation Reported 10/20/2024 9:53 AM [facility] Brushing/Spatula Cervix uteri structure / Unknown 10/14/2024 10/15/2024 6:50 AM EDT us Garry Randhawa MD LAB CYTOLOGY ORDERABLES Final Result [facility] [address] [place] [address], [place] [phone] from Last 3 Months or Most Recently Relevant to Health Maintenance Insurance [facility] Care Teams Events Intern Relationship Specialty Start Date End Date Physician, No Pcp PCP - General 10/21/24
--- OUTSIDE RECORDS SUMMARY | 2025-03-06 11:03 | XMS_ITS | Encounter Summary ---
Author Organization [facility] Address [address] [place] [phone] Phone Care Team Providers Care Energy Risk Management Analyst Name Role Phone Elina Mendez MD Primary Care Provider [phone] Encounter Details Date Type Department Care Team (Latest Contact Info) Description 02/21/2018 Transcribe Orders [facility] Laboratory [address] [place] [address] Carolee Sanon MD [address] [place] [address] [email or web address] Neurotrophic keratoconjunctivitis of both eyes (Primary Dx) [...] EDT) SS-A/RO IGG <0.2 <1.0 (Negative) U [facility] DPT OF LAB MED AND PAT+ SS-B/LA IGG <0.2 <1.0 (Negative) U [facility] DPT OF LAB MED AND PAT+ Blood 02/21/2018 3:20 PM EDT 02/21/2018 3:27 PM EDT us Carolee Sanon MD LAB BLOOD ORDERABLES Final Resu lt [facility] DPT OF LAB MED AND PAT+ [address] [place] [address] * Rheumatoid factor (02/21/2018 3:20 PM EDT) RHEUMATOID FACTOR <10.0 0.0 - 14.0 IU/ml [facility] Blood 02/21/2018 3:20 PM EDT 02/21/2018 3:26 PM EDT us Carolee Sanon MD LAB BLOOD ORDERABLES Final Resu lt Performing Organization Address [facility]/ZIP Co de Phone Number [address] [phone] * Antinuclear antibody (BLAINE) (02/21/2018 3:20 PM EDT) BLAINE SCREEN ON HEP 2 Negative Negative [facility] Blood 02/21/2018 3:20 PM EDT 02/21/2018 3:26 PM EDT Carolee Sanon MD LAB BLOOD ORDERABLES Final Resu lt Performing Organization Address [facility] Co de Phone Number [address] [phone] documented in this encounter Visit Diagnoses Diagnosis Neurotrophic keratoconjunctivitis of both eyes- Primary documented in this encounter Care Teams Energy Risk Management Analyst Relationship Specialty Start Date End Date Elina Mendez MD PCP - General Internal Medicine 02/21/18 documented as of this encounter Additional Source Comments The information contained in this document represents components of the legal health record. It is not the complete legal health record.[facility]
--- OUTSIDE RECORDS SUMMARY | 2025-03-06 11:03 | XMS_ITS | Clinical Summary ---
Author Organization [facility] Address [address] [place] [phone] Phone Care Team Providers Care Drum Sealer Name Role Phone Elina Mendez MD Primary Care Provider [phone] Social History Tobacco Use Types Packs/Day Years [...] file Medical Devices Not on file Insurance [facility] [address] [address] [place] [address] [place] [address] [employer] [address] [place] [address] Care Teams Drum Sealer Relationship Specialty Start Date End Date Elina Mendez MD PCP - General Internal Medicine 02/21/18 Additional Source Comments The information contained in this document represents components of the legal health record. It is not the complete legal health record.[facility]
[2025-03-27 10:25] VITALS: BMI 31.0
--- NOTE | 2025-03-27 12:41 | HO.ANESPROP2 ---
HPI - Anesthesia Eval Consult details Narrative: 60yo F for Colonoscopy PMF Active Problems Active Problems: All Active Problems Fibromyalgia (Acute) Hypothyroid (Acute) Pes planus of both feet (Acute) Hyperuricemia (Acute) Bilateral bunions (Acute) Respiratory infection (Acute) Abscess of perineum (Acute) Rash (Acute) Flu-like symptoms (Acute) Obesity (Acute) Family history of colon cancer (Acute) Family history of gastric cancer (Acute) Dyspepsia (Acute) Bilateral foot pain (Acute) Fundic gland polyps of stomach, benign (Acute) Gastritis (Acute) Hospital discharge follow-up (Acute) Abnormal EKG (Acute) Chest pain (Acute) Anaphylaxis (Acute) Enlarged thyroid (Acute) Shortness of breath (Acute) At high risk for breast cancer (Acute) Axillary lymphadenopathy (Acute) Mass of right breast (Acute) 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 (Acute) Diverticulitis (Acute) Migraine (Acute) Insomnia (Acute) Past Medical History Medical History Hypothyroid Encounter for cholecystectomy Asthma Hyperlipidemia Hypertension Family History Family History Mother Lung cancer Colon cancer Father Stomach cancer Paternal Aunt Breast cancer Brother Autoimmune disorder Family history of problems with anesthesia: No Surgical History Surgical History History of gynecologic surgery History of skin surgery H/O hernia repair History of surgery on arm H/O eye surgery History of esophagogastroduodenoscopy (EGD) Hx of resection of large bowel Hx of colonoscopy History of Problems with Anesthesia: No Social History Social History Housing: House Are you a primary customer care representative to a significant other at home: No Do you presently have visiting nurse or other home services: No Alcohol intake: current Alcohol intake frequency: holidays/special occasions only Patient Tobacco Use Status: Never used Tobacco e-Cigarette/Vaping Use: Never Used Second Hand Smoke Exposure: Yes (past) service: No Current occupational status: employed Current occupational exposures/hazards: No (past) Cognitive needs: No Hearing needs: No Vision needs: No Meds Allergies Allergy/AdvReac Type Severity Reaction Status Date / Time cephalexin (From Keflex) Allergy Severe Anaphylaxis Verified 01/20/25 09:33 erythromycin base Allergy Severe Abdominal Verified 01/20/25 09:33 Pain oxycodone (From Percocet) Allergy Severe Severe Verified 01/20/25 09:33 Back Pain/Pressure povidone-iodine (From Allergy Severe Rash Verified 01/20/25 09:33 Betadine) sulfamethoxazole (From Allergy Severe Rash/Hand Verified 01/20/25 09:33 Bactrim) Cramps trimethoprim (From Bactrim) Allergy Severe Rash/Hand Verified 01/20/25 09:33 Cramps acetaminophen (From Percocet) Allergy Intermediate Rash Verified 01/20/25 09:33 amoxicillin Allergy Intermediate Rash Verified 01/20/25 09:33 codeine Allergy Intermediate Severe Verified 01/20/25 09:33 Back Pain/Pressure iodine Allergy Intermediate SOB/Blister Verified 01/20/25 09:33 ing metronidazole (From Flagyl) Allergy Intermediate Anaphylaxis Verified 01/20/25 09:33 shellfish Allergy Intermediate SOB Uncoded 01/20/25 09:33 Home Medications ?Medication ?Instructions ?Recorded ?Confirmed ?Last Taken ?Type diltiazem HCl 180 mg 180 mg PO DAILY 05/05/24 03/27/25 09/02/24 History capsule,extended release 24 hr, controlled (DILT-XR) ezetimibe 10 mg tablet 10 mg PO DAILY 06/02/24 03/27/25 Unknown History lifitegrast 5 % eye drops in a 1 drp ophthalmic (eye) BID 06/02/24 03/27/25 Unknown History dropperette (Xiidra) meloxicam 7.5 mg tablet 7.5 mg PO DAILY 11/04/24 03/27/25 Unknown History Exam Height,Weight and Vital Signs: Height 5 ft 6 in Weight 87.09 kg Pertinent Lab Results Pertinent Lab Results: Laboratory Tests 01/20/25 10:49 WBC 7.2 Hgb 12.7 Hct 40.1 Plt Count 261 Sodium 140 Potassium 4.2 Chloride 107 Carbon Dioxide 25 BUN 24 H Creatinine 0.84 Assessment and Plan Assessment Anesthesia Assessment: Chart Reviewed Final Anesthetic Review Family History of Problems with Anesthesia: No History of Problems with Anesthesia: No
[2025-03-31 09:40] VITALS: BMI 30.3
[2025-03-31 09:55] VITALS: BP 130/76; PULSE 86; RESP 16; TEMP 36.6; O2SAT 100
[2025-03-31] MEDS: Lactated Ringers 1,000 ML 100 ML IVCONT (09:55)
--- NOTE | 2025-03-31 10:50 | P.HPSUR_ITS ---
Pre-Procedural Eval Section A - 24 Hr Update-Section A only Date of Service: 03/31/25 Section B - Complete if H&P > 30 days Chief Complaint: screening Details of Present Illness: History of gynecologic surgery History of skin surgery H/O hernia repair History of surgery on arm H/O eye surgery History of esophagogastroduodenoscopy (EGD) Hx of resection of large bowel Hx of colonoscopy Family History Mother Lung cancer Colon cancer Father Stomach cancer Paternal Aunt Breast cancer Brother Autoimmune disorder Present Medications: see Short Stay Collaborative assessment Allergies: Allergies Allergy/AdvReac Type Severity Reaction Status Date / Time cephalexin (From Keflex) Allergy Severe Anaphylaxis Verified 01/20/25 09:33 erythromycin base Allergy Severe Abdominal Verified 01/20/25 09:33 Pain oxycodone (From Percocet) Allergy Severe Severe Verified 01/20/25 09:33 Back Pain/Pressure povidone-iodine (From Allergy Severe Rash Verified 01/20/25 09:33 Betadine) sulfamethoxazole (From Allergy Severe Rash/Hand Verified 01/20/25 09:33 Bactrim) Cramps trimethoprim (From Bactrim) Allergy Severe Rash/Hand Verified 01/20/25 09:33 Cramps acetaminophen (From Percocet) Allergy Intermediate Rash Verified 01/20/25 09:33 amoxicillin Allergy Intermediate Rash Verified 01/20/25 09:33 codeine Allergy Intermediate Severe Verified 01/20/25 09:33 Back Pain/Pressure iodine Allergy Intermediate SOB/Blister Verified 01/20/25 09:33 ing metronidazole (From Flagyl) Allergy Intermediate Anaphylaxis Verified 01/20/25 09:33 shellfish Allergy Intermediate SOB Uncoded 01/20/25 09:33 Review of Systems Review of Systems Comment: Ten point ROS negative Exam Exam Comment: Gen appear: No acute distress HEENT: no icterus Chest: No overt resp distress Abd: soft, nontender, nondistended Psych: Stable affect, answering questions appropriately Neuro: A/Ox3 noted to move all extremities spontaneously Ext: no peripheral edema Plan Diagnosis/Plan: Unchanged I have reviewed the history and physical and performed a pertinent physical examination on my patient. No changes have occurred unless specified. Time Spent With Patient Time: Total time managing care of this patient today ____ minutes.
--- NOTE | 2025-03-31 11:24 | P.OPN-COLO_ITS ---
Colonoscopy Operative Note Operative Note Date of Service: 03/31/25 Narrative: Procedure: Colonoscopy Indication: Family history of colon cancer Endoscopist: Deja Ruiz MD Anesthesia Provider: Larry Bedoya CRNA Anesthesia type: MAC Instrument: Olympus [id number]-H190L Consent: Indication, risks vs benefits, and alternatives were discussed with the patient who gave written informed consent to proceed. EKG, pulse, pulse oximetry and blood pressure were monitored throughout the procedure. Please see anesthesia flowsheet. Procedure: The patient was brought to the procedure room and placed in the left lateral decubitus position. IV medications were administered by the anesthesia provider in attendance. A digital rectal exam was performed which was abnormal due to finding of hemorrhoids. A distal attachment cap was affixed to the tip of the colonoscope which was then inserted through the anus and advanced through the colon to the cecum at 75 cm,and terminal ileum. Appendiceal orifice and ileocecal valve were identified. Mucosa was carefully examined under high definition white light as the instrument was slowly withdrawn in a retrograde panoramic fashion. Retroflexion was performed in rectum. The procedure was not difficult. There were no immediate obvious complications. The quality of the prep was BBPS: 2+2+2 = adequate Withdrawal time 9 minutes. Limitations: No limitations. Findings: Mucosa: Small amount of non adherent residue was again noted in the entire colon which was flushed and suctioned. Underlying mucosa normal to cecum and terminal ileum. Protruding lesions: * Medium internal hemorrhoids without stigmata of recent bleeding. Impression: 1. Normal colon and terminal ileum mucosa 2. External and internal hemorrhoids Recommendations: - Repeat colonoscopy in 5 years due to family history.
[2025-03-31 11:25] VITALS: BP 110/61; PULSE 86; RESP 18; TEMP 36.1; O2SAT 97
[2025-03-31 11:40] VITALS: BP 121/63; PULSE 72; RESP 11; TEMP 36.1; O2SAT 99
== END 2025-03-31 11:55 | disposition home or self-care (01) ==
PROVIDERS: PCP Internal Medicine; Visit Provider Internal Medicine
PROC: 0DJD8ZZ Inspection of Lower Intestinal Tract, Via Natural or Artificial Opening Endoscopic (ICD-10-PCS; CPT 45378; principal; 2025-03-31 10:50)
DX: Z12.11 Encounter for screening for malignant neoplasm of colon (principal); Z80.0 Family history of malignant neoplasm of digestive organs; K64.8 Other hemorrhoids; K64.4 Residual hemorrhoidal skin tags
CPT/HCPCS: 45378; J2704

== ENCOUNTER → 2025-03-31 08:37 | Outpatient (BNV) | payer BC, SELFPAY | PROVIDERS: PCP Internal Medicine; Visit Provider Internal Medicine | DX: Z12.11 Encounter for screening for malignant neoplasm of colon (principal); K64.8 Other hemorrhoids; Z80.0 Family history of malignant neoplasm of digestive organs | CPT/HCPCS: 45378 ==